=== PATIENT | male | born 1950 | race African-American/Black ===

== ENCOUNTER 2017-07-19 05:25 | Emergency (ER) | payer OTHER ==
[2017-07-19] MEDS ORDERED: NA CHLORIDE 0.9% 1,000 ML ONE (06:03)
[2017-07-19 06:25] LABS: Absolute Lymphocytes (CBC) 1.1 K/uL (0.7-4.9); Absolute Monocytes 0.7 K/uL (0.1-1.3); Absolute Neutrophil 2.6 K/uL (1.8-8.0); Basophils % 1.2 % (0-1.3); Eosinophils % 1.6 % (0-4.4); Hematocrit 28.7 % (39.6-49.0); MCH 31.8 pg (27.0-35.0); MCV 98.7 fL (80-100); Monocytes % 15.7 % (3.3-12.3); RBC Red Blood Cell Count 2.91 M/uL (4.33-5.43)
[2017-07-19 06:39] LABS: Potassium 4.7 mEq/L (3.6-5.0)
[2017-07-19 06:44] LABS: Albumin 3.5 g/dL (3.2-5.5); Bilirubin Total 0.7 mg/dL (0.3-1.2); Protein, Total 7.5 g/dL (6.0-8.3)
[2017-07-19 07:14] LABS: Blood Morphology Comment NOT SEEN (NOT SEEN); Platelet Estimate ADEQ; Urine White Blood Cell Casts OK
[2017-07-19] MEDS ORDERED: MORPHINE 4 MG/ML SYR ONE (07:33)
[2017-07-19] MEDS ORDERED: ONDANSETRON 4 MG/2 ML VIAL ONE (07:33)
--- NOTE | 2017-07-19 08:42 | RAD REPORT ---
EXAM DESCRIPTION: RAD - Chest Single View - 07/19/2017 5:56 am CLINICAL HISTORY: Chest pain. COMPARISON: 07/04/2017 FINDINGS: Portable technique limits examination quality. The lungs are grossly clear. The heart is normal in size. Changes of a prior CABG noted. Right-sided venous catheter tip in SVC. Cardiac monitoring device noted. IMPRESSION: No acute intrathoracic process suspected.
--- NOTE | 2017-07-19 10:03 | ER ---
Nurse's Notes [facility] Name: Julien Parikh Age: 66 yrs Sex: Male : 1950 Arrival Date: 07/19/2017 Time: 05:28 Bed 6 Private MD: Diagnosis: Chest pain, unspecified Presentation: 07/19 05:22 Presenting complaint: EMS states: Pt complaining of chest discomfort to right side of ea chest that started about forty minutes ago, patient complaining of nausea, vomiting and diarrhea. Pt reported being admitted on 06/30/2017. Transition of care: patient was not received from another setting of care. Onset of symptoms was July 19, 2017. Care prior to arrival: None. 05:22 Method Of Arrival: EMS: [facility] ea 05: Acuity: PERRI 3 ea Triage Assessment: :22 General: Appears in no apparent distress. Behavior is calm, cooperative, Pt reports ea every time he eats he has vomiting and diarrhea, states "that's why I came I haven't been able to keep anything down since three PM yesterday evening. . General: Patient denies SOB . Pain: Complains of pain in mid-sternal area Pain radiates to left arm Pain currently is 9 out of 10 on a pain scale. Quality of pain is described as pressure, Pain began 1 hour ago. Is continuous. Historical: - Allergies: 05:39 PENICILLINS; ea - Home Meds: 05:39 Advair Diskus 250-50 mcg/dose Inhl dsdv 1 puff 2 times per day [Active]; aspirin 81 mg ea Oral chew 1 tab once daily [Active]; atorvastatin 80 mg Oral tab 1 tab once daily [Active]; BRILINTA 90 mg Oral tab 1 tab 2 times per day [Active]; carvedilol 25 mg Oral tab 1 tab 2 times per day [Active]; hydralazine 50 mg Oral tab 1 tab Q8hrs [Active]; isosorbide mononitrate 60 mg Oral Tb24 1 tab once daily [Active]; Renagel 800 mg Oral tab 2 tabs 3 times per day [Active]; - PMHx: 05:39 Asthma; CHF; chronic kidney disease; COPD; CVA; Dialysis T-Th-Sat; Hepatitis; L arm ea paralysis; Myocardial infarction; triple bypass; - Immunization history:: Adult Immunizations up to date. - Social history:: Smoking status: Patient/guardian denies using tobacco. Screenin:36 Abuse screen: Denies threats or abuse. Nutritional screening: No deficits noted. ea Tuberculosis screening: No symptoms or risk factors identified. Fall Risk None identified. Assessment: 05:35 General: Appears in no apparent distress. uncomfortable, Behavior is calm, cooperative. ar4 Pain: Complains of pain in anterior chest mid-sternal area, and epigastric region Pain radiates to left arm and abdomen x4 quads Pain currently is 9 out of 10 on a pain scale. at worst was 10 out of 10 on a pain scale. Quality of pain is described as crushing, pressure, radiating, Pain began 1 day ago. Is continuous, Alleviated by nothing. Aggravated by repositioning, inhalation and exhalation breathing Noted to be grimacing, resistant to movement, Also complains of decreased appetite, nausea, shortness of breath, vomiting and diarrhea. Neuro: Level of Consciousness is awake, alert, obeys commands, Oriented to person, place, time, situation, Photography Intern are weak on left Paralysis in left hand(s) arm(s) left, LE weakness. Gait is shuffling, Speech is normal, Facial symmetry appears normal, Pupils are PERRLA, Reports weakness since Pt. reports, "Stroke occurred last year." Denies difficulty swallowing. Cardiovascular: Heart tones S1 S2 present Capillary refill < 3 seconds is brisk in right fingers Patient's skin is warm and dry. Pulses are all present. Chest pain is described as Pt. reports, "Moderate chest pain with shortness of breath.". quality is crushing, pressure, is located in anterior chest wall epigastric area radiates to left arm(s) epigastric region and abdomen x4 quads began 1 day ago episodes are continuous is aggravated by activity, breathing, eating. GI: Abdomen is round non-distended, Stools are reported to be diarrhea. Bowel sounds present X 4 quads. hypoactive in right upper quadrant, left upper quadrant, right lower quadrant and left lower quadrant Abd is soft X 4 quads Abdomen is tender to palpation X 4 quads. Guarding noted X 4 quads. Reports lower abdominal pain, upper abdominal pain, diarrhea, epigastric pain, intolerance of fluids, intolerance of food, nausea, vomiting, since yesterday. : No signs and/or symptoms were reported regarding the genitourinary system. EENT: No signs and/or symptoms were reported regarding the EENT system. Derm: Skin is intact, Skin is dry, Skin is normal, Skin temperature is warm. Musculoskeletal: Range of motion: limited in left shoulder, left elbow, DIP of left little finger, PIP of left little finger, MCP of left little finger, DIP of left ring finger, PIP of left ring finger, MCP of left ring finger, DIP of left middle finger, PIP of left middle finger, MCP of left middle finger, DIP of left index finger, PIP of left index finger, MCP of left index finger, IP of left thumb, MCP of left thumb and CMC of left thumb Tenderness present in abdomen Reports weakness in left leg. 05:35 Respiratory: Airway is patent Trachea midline Respiratory effort is even, mildly ar4 labored Respiratory pattern is regular, Breath sounds with wheezes bilaterally. Onset: The symptoms/episode began/occurred yesterday, the patient has moderate shortness of breath. 07:18 Reassessment: Patient c/o med-sternal chest and epigastric pain, provider notified, new ae1 orders received. 09:21 Reassessment: Patient appears in no apparent distress at this time. Patient and/or ae1 family updated on plan of care and expected duration. Pain level reassessed. Patient states feeling better. 10:22 Reassessment: Provider at bedside discussing care. ae1 Vital Signs: 05:22 BP 164 / 78; Pulse 77; Resp 17 S; Temp 98.4; Pulse Ox 100% on R/A; Weight 72.12 kg; ea Height 5 ft. 8 in. (172.72 cm) (R); Pain 9/10; 05:51 BP 163 / 81; Pulse 80; Resp 20; Pulse Ox 100% on R/A; Pain 9/10; ar4 07:18 BP 172 / 82; Pulse 76; Resp 18; Pulse Ox 100% on R/A; ae1 08:19 BP 160 / 87; Pulse 82; Resp 18; Pulse Ox 100% on R/A; ae1 09:20 BP 152 / 77; Pulse 73; Resp 15; Pulse Ox 98% on R/A; ae1 10:23 BP 158 / 71; Pulse 80; Resp 15; Pulse Ox 99% on R/A; ae1 05:22 Body Mass Index 24.18 (72.12 kg, 172.72 cm) ea ED Course: 05:22 Arm band placed on right wrist. ea 05:22 Patient has correct armband on for positive identification. Bed in low position. Call ea light in reach. Side rails up X2. 05:28 Patient arrived in ED. rg2 05:30 Fiona Bo, [facility] is Primary Nurse. ea 05:34 Triage completed. ea 05:38 Trent Valentine MD is Attending Physician. ps1 05:40 Missed attempt(s): 20 gauge in right wrist. ar4 05:49 X-ray completed. Portable x-ray completed in exam room. Patient tolerated procedure kw well. 05:50 CXR XRAY In Process Unspecified. EDMS 06:05 Initial lab(s) drawn, by me, sent to lab. Inserted saline lock: 18 gauge in right bb antecubital area, using aseptic technique. Blood collected. 06:18 Missed attempt(s): 22 gauge in right forearm. Bleeding controlled, band aid applied, bb catheter tip intact. 06:49 Notified ED physician of a critical lab result(s). creatinine of 10.47 Dr Singer claudio notified. 08:40 Attending Physician role handed off by Trent Valentine MD kdr 08:40 Efren Chicas MD is Attending Physician. kdr 08:42 IV discontinued, intact, bleeding controlled, Pressure dressing applied, IV ae1 infiltrated, mild swelling above insertion site. 10:21 No provider procedures requiring assistance completed. ae1 Administered Medications: 06:41 Drug: NS 0.9% 1000 ml Route: IV; Rate: 1 bolus; Site: right antecubital; bb 10:24 Follow up: IV Status: Completed infusion ae1 07:20 Drug: Zofran 4 mg Route: IVP; Site: right antecubital; ae1 08:20 Follow up: Response: No adverse reaction ae1 07:22 Drug: morphine 4 mg Route: IVP; Site: right antecubital; ae1 08:20 Follow up: Response: Pain is decreased ae1 Outcome: 10:02 Discharge ordered by . kdr 10:21 Attestation : I agree with the charting done by Radha Fields, nursing care attendant. . ae1 10:21 Discharged to home ambulatory. 10:21 Condition: stable 10:21 Discharge instructions given to patient, Instructed on discharge instructions, follow up and referral plans. Demonstrated understanding of instructions. 10:26 Patient left the ED. ae1 Signatures: Dispatcher [employer] EDMS Shaffer Cheri rg2 Efren Chicas MD MD kdr Feli Abdullahi RN RN Jazmin Archer Andrea, RN RN ae1 Fiona Bo RN RN ea Singer, Phillip, MD MD ps1 Stephanie Loza ar4 Corrections: (The following items were deleted from the chart) 06:05 05:35 Respiratory: Airway is patent Trachea midline Respiratory effort is even, mildly ar4 labored Respiratory pattern is regular, Onset: The symptoms/episode began/occurred yesterday, the patient has moderate shortness of breath ar4
--- NOTE | 2017-07-19 10:03 | EDPHYS ---
Physician Documentation [facility] Name: Julien Parikh Age: 66 yrs Sex: Male : 1950 Arrival Date: 07/19/2017 Time: 05:28 Bed 6 Private MD: ED Physician Efren Chicas HPI: 07/19 05:43 This 66 yrs old Black Male presents to ER via EMS with complaints of chest pain. ps1 05:43 The patient or guardian reports chest pain that is located primarily in the substernal ps1 area, epigastric area. Onset: yesterday, at 15:00. The pain radiates to the left arm, the left shoulder. Associated signs and symptoms: The patient has no apparent associated signs or symptoms. The chest pain is described as squeezing. Duration: The patient or guardian reports a single episode, that is still ongoing. Modifying factors: the symptoms are aggravated by nothing. Severity of pain: At its worst the pain was moderate. The patient has experienced similar episodes in the past, today's symptoms are similar, to previous not as bad as previous CA.. Took 180 ASA at 0500. Hx of CA in past, 2 stents done in [place] a year ago. Patient of Dr. Dela Cruz in [place]. . 06:55 ESRD on dialysis TTS. Missed dialysis Tuesday. Dialysis scheduled today. . ps1 Historical: - Allergies: 05:39 PENICILLINS; ea - Home Meds: 05:39 Advair Diskus 250-50 mcg/dose Inhl dsdv 1 puff 2 times per day [Active]; aspirin 81 mg ea Oral chew 1 tab once daily [Active]; atorvastatin 80 mg Oral tab 1 tab once daily [Active]; BRILINTA 90 mg Oral tab 1 tab 2 times per day [Active]; carvedilol 25 mg Oral tab 1 tab 2 times per day [Active]; hydralazine 50 mg Oral tab 1 tab Q8hrs [Active]; isosorbide mononitrate 60 mg Oral Tb24 1 tab once daily [Active]; Renagel 800 mg Oral tab 2 tabs 3 times per day [Active]; - PMHx: 05:39 Asthma; CHF; chronic kidney disease; COPD; CVA; Dialysis T-Th-Sat; Hepatitis; L arm ea paralysis; Myocardial infarction; triple bypass; - Immunization history:: Adult Immunizations up to date. - Social history:: Smoking status: Patient/guardian denies using tobacco. ROS: 05:43 Constitutional: Negative for fever, chills, and weight loss, Eyes: Negative for injury, ps1 pain, redness, and discharge, Neck: Negative for injury, pain, and swelling. 05:43 Respiratory: Negative for shortness of breath, cough, wheezing, and pleuritic chest pain, Abdomen/GI: Negative for abdominal pain, nausea, vomiting, diarrhea, and constipation, MS/Extremity: Negative for injury and deformity, Skin: Negative for injury, rash, and discoloration, Neuro: Negative for headache, weakness, numbness, tingling, and seizure, Psych: Negative for depression, anxiety, suicide ideation, homicidal ideation, and hallucinations. 05:43 Cardiovascular: Positive for chest pain. Exam: 05:43 Constitutional: This is a well developed, well nourished patient who is awake, alert, ps1 and in no acute distress. Head/Face: Normocephalic, atraumatic. Eyes: Pupils equal round and reactive to light, extra-ocular motions intact. Lids and lashes normal. Conjunctiva and sclera are non-icteric and not injected. Neck: Trachea midline, no thyromegaly or masses palpated, and no cervical lymphadenopathy. Supple, full range of motion without nuchal rigidity, or vertebral point tenderness. No Meningismus. Chest/axilla: Normal chest wall appearance and motion. Nontender with no deformity. No lesions are appreciated. Cardiovascular: Regular rate and rhythm. No gallops, murmurs, or rubs. Normal PMI, no JVD. No pulse deficits. Vital Signs: 05:22 BP 164 / 78; Pulse 77; Resp 17 S; Temp 98.4; Pulse Ox 100% on R/A; Weight 72.12 kg; ea Height 5 ft. 8 in. (172.72 cm) (R); Pain 9/10; 05:51 BP 163 / 81; Pulse 80; Resp 20; Pulse Ox 100% on R/A; Pain 9/10; ar4 07:18 BP 172 / 82; Pulse 76; Resp 18; Pulse Ox 100% on R/A; ae1 08:19 BP 160 / 87; Pulse 82; Resp 18; Pulse Ox 100% on R/A; ae1 09:20 BP 152 / 77; Pulse 73; Resp 15; Pulse Ox 98% on R/A; ae1 10:23 BP 158 / 71; Pulse 80; Resp 15; Pulse Ox 99% on R/A; ae1 05:22 Body Mass Index 24.18 (72.12 kg, 172.72 cm) ea MDM: 05:29 Data reviewed: vital signs, nurses notes. ps1 05:49 Patient medically screened. ps1 07/19 05:39 Order name: CBC with Diff; Complete Time: 09:40 ps1 07/19 05:39 Order name: CMP; Complete Time: 06:55 ps1 07/19 05:39 Order name: Troponin (emerg Dept Use Only); Complete Time: 06:48 ps1 07/19 05:39 Order name: BNP; Complete Time: 06:55 ps1 07/19 05:39 Order name: Lipase; Complete Time: 06:55 ps1 07/19 06:28 Order name: CBC Smear Scan; Complete Time: 09:40 EDMS 07/19 05:39 Order name: CXR XRAY; Complete Time: 09:40 ps1 07/19 06:58 Order name: EKG Electrocardiogram EDMS 07/19 08:41 Order name: Troponin (emerg Dept Use Only); Complete Time: 10:01 kdr EC:29 Rate is 74 beats/min. Rhythm is regular. QRS [place] is Normal. PA interval is normal. QRS ps1 interval is normal. QT interval is normal. No Q waves. T waves are Normal. ST Segment is depressed in leads II, III, aVF, <1mm. Clinical impression: NSR w/ Non-specific ST/T Changes. No change from previous ECG on June 30, 2017. Interpreted by me. Administered Medications: 06:41 Drug: NS 0.9% 1000 ml Route: IV; Rate: 1 bolus; Site: right antecubital; bb 10:24 Follow up: IV Status: Completed infusion ae1 07:20 Drug: Zofran 4 mg Route: IVP; Site: right antecubital; ae1 08:20 Follow up: Response: No adverse reaction ae1 07:22 Drug: morphine 4 mg Route: IVP; Site: right antecubital; ae1 08:20 Follow up: Response: Pain is decreased ae1 Disposition: 07/19/17 10:02 Discharged to Home. Impression: Chest pain, unspecified. - Condition is Stable. - Discharge Instructions: Nonspecific Chest Pain, [id number]. - Medication Reconciliation Form, Thank You Letter form. - Follow up: Private Physician; When: 2 - 3 days; Reason: If symptoms return, Further diagnostic work-up, Recheck today's complaints, Continuance of care, Re-evaluation by your physician. - Problem is new. - Symptoms have improved. Signatures: Dispatcher [employer] EDEfren Zelaya MD MD kdr Feli Abdullahi RN RN bb Chacho Arnett RN RN ae1 Fiona Bo RN RN ea Trent Valentine MD MD ps1
[2017-07-19 10:57] VITALS: BP 158/71; O2SAT 99
--- NOTE | 2017-07-19 11:59 | EKG ---
Test Date: 2017-07-19 Test Time: 05:29:51 [employer]: ANNI MEASUREMENT RESULTS: Intervals: Rate: 74 NC: 144 QRSD: 84 QT: 408 QTc: 452 Hardy: P: 77 NC: 144 QRS: -2 T: 258 INTERPRETIVE STATEMENTS: Normal sinus rhythm ST & T wave abnormality, consider inferior ischemia Abnormal ECG Compared to ECG 06/30/2017 20:45:51 Possible ischemia now present Sinus arrhythmia no longer present Prolonged QT interval no longer present ST (T wave) deviation still present Electronically Signed On 07-19-17 11:57:15 CDT by Jono Hauser
== END 2017-07-19 10:26 | disposition home or self-care (01) ==
LOC: ER 05:25
DX: R07.9 Chest pain, unspecified (principal); Z88.0 Allergy status to penicillin; J44.9 Chronic obstructive pulmonary disease, unspecified
CPT/HCPCS: 36415; 71045; 80053; 83690; 83880; 84484 ×2; 85025; 93005; 96361; 96374; 96375; 99284; J2405; J7030

== ENCOUNTER 2017-08-05 08:30 | Emergency (ER) | payer OTHER ==
[2017-08-05 09:44] LABS: Absolute Lymphocytes (CBC) 1.7 K/uL (0.7-4.9); Absolute Monocytes 0.5 K/uL (0.1-1.3); Basophils % 0.7 % (0-1.3); Eosinophils % 1.7 % (0-4.4); Hematocrit 31.5 % (39.6-49.0); Lymphocytes % 32.3 % (15.3-44.8); MCH 31.3 pg (27.0-35.0); MCV 98.5 fL (80-100); MPV 9.9 fL (7.6-11.3); Monocytes % 9.7 % (3.3-12.3); RBC Red Blood Cell Count 3.19 M/uL (4.33-5.43)
[2017-08-05 09:59] LABS: Potassium 4.5 mEq/L (3.6-5.0)
--- NOTE | 2017-08-05 11:03 | EDPHYS ---
Physician Documentation [facility] Name: Julien Parikh Age: 67 yrs Sex: Male : 1950 Arrival Date: 08/05/2017 Time: 08:35 Bed 13 Private MD: ED Physician Efren Chicas HPI: 08/05 15:34 This 67 yrs old Black Male presents to ER via Ambulatory with complaints of DIALYSIS kdr PROBLEM. 15:34 Dialysis sent the patient to the ED for eval since he has not made the last few kdr dialysis sessions. He has no generalized or focal c/o. Onset: The symptoms/episode began/occurred at an unknown time. Severity of symptoms: At their worst the symptoms were very mild in the emergency department the symptoms are unchanged. The patient has not experienced similar symptoms in the past. The patient has not recently seen a physician. Historical: - Allergies: 09:02 PENICILLINS; ss - PMHx: 09:02 Asthma; CHF; chronic kidney disease; COPD; CVA; Dialysis T-Th-Sat; Hepatitis; L arm ss paralysis; Myocardial infarction; triple bypass; - Immunization history:: Adult Immunizations up to date. - Social history:: Smoking status: Patient uses tobacco products, smokes one pack cigarettes per day. ROS: 15:34 Constitutional: Negative for fever, chills, and weight loss, Eyes: Negative for injury, kdr pain, redness, and discharge, ENT: Negative for injury, pain, and discharge, Neck: Negative for injury, pain, and swelling, Cardiovascular: Negative for chest pain, palpitations, and edema, Respiratory: Negative for shortness of breath, cough, wheezing, and pleuritic chest pain, Abdomen/GI: Negative for abdominal pain, nausea, vomiting, diarrhea, and constipation, Back: Negative for injury and pain, : Negative for injury, bleeding, discharge, and swelling, MS/Extremity: Negative for injury and deformity, Skin: Negative for injury, rash, and discoloration, Neuro: Negative for headache, weakness, numbness, tingling, and seizure activity. Psych: Negative for depression, anxiety, suicide ideation, homicidal ideation, and hallucinations, Allergy/Immunology: Negative for hives, rash, and allergies, Endocrine: Negative for neck swelling, polydipsia, polyuria, polyphagia, and marked weight changes, Hematologic/Lymphatic: Negative for swollen nodes, abnormal bleeding, and unusual bruising. Exam: 15:34 Constitutional: This is a well developed, well nourished patient who is awake, alert, kdr and in no acute distress. Head/Face: Normocephalic, atraumatic. Eyes: Pupils equal round and reactive to light, extra-ocular motions intact. Lids and lashes normal. Conjunctiva and sclera are non-icteric and not injected. Cornea within normal limits. Periorbital areas with no swelling, redness, or edema. ENT: Nares patent. No nasal discharge, no septal abnormalities noted. Tympanic membranes are normal and external auditory canals are clear. Oropharynx with no redness, swelling, or masses, exudates, or evidence of obstruction, uvula midline. Mucous membranes moist. Neck: Trachea midline, no thyromegaly or masses palpated, and no cervical lymphadenopathy. Supple, full range of motion without nuchal rigidity, or vertebral point tenderness. No Meningismus. Chest/axilla: Normal chest wall appearance and motion. Nontender with no deformity. No lesions are appreciated. There is a dialysis cath in the right anterior chest wall Cardiovascular: Regular rate and rhythm with a normal S1 and S2. No gallops, murmurs, or rubs. Normal PMI, no JVD. No pulse deficits. Respiratory: Lungs have equal breath sounds bilaterally, clear to auscultation and percussion. No rales, rhonchi or wheezes noted. No increased work of breathing, no retractions or nasal flaring. Abdomen/GI: Soft, non-tender, with normal bowel sounds. No distension or tympany. No guarding or rebound. No evidence of tenderness throughout. Back: No spinal tenderness. No costovertebral tenderness. Full range of motion. Male : Normal genitalia with no discharge or lesions. Skin: Warm, dry with normal turgor. Normal color with no rashes, no lesions, and no evidence of cellulitis. Vital Signs: 09:02 BP 139 / 76; Pulse 74; Resp 19; Temp 97.9(TE); Pulse Ox 99% on R/A; Weight 67.59 kg; ss Height 5 ft. 8 in. (172.72 cm); Pain 0/10; 10:22 BP 165 / 78; Pulse 76; Pulse Ox 100% on R/A; ap3 11:08 BP 164 / 84; Pulse 75; Pulse Ox 100% on R/A; ap3 09:02 Body Mass Index 22.66 (67.59 kg, 172.72 cm) MDM: 11:03 Patient medically screened. kdr 15:34 Data reviewed: vital signs, lab test result(s). Counseling: I had a detailed discussion kdr with the patient and/or guardian regarding: the historical points, exam findings, and any diagnostic results supporting the discharge/admit diagnosis, lab results, the need for outpatient follow up. 08/05 09:03 Order name: CBC with Diff; Complete Time: 11: kdr 08/05 09:03 Order name: Chem 7; Complete Time: : kdr Administered Medications: No medications were administered Disposition: 08/05/17 11:03 Discharged to Home. Impression: Dialysis non-compliance, Renal failure - chronic. - Condition is Stable. - Discharge Instructions: Dialysis Diet, [id number]. - Medication Reconciliation Form, Thank You Letter form. - Follow up: Private Physician; When: 2 - 3 days; Reason: If symptoms return, Further diagnostic work-up, Recheck today's complaints, Continuance of care, Re-evaluation by your physician. - Problem is new. - Symptoms are unchanged. Signatures: Dispatcher [employer] Efren Oro MD MD kdr Janene Alonso RN RN Chacho Arnett RN RN ae1
--- NOTE | 2017-08-05 11:03 | ER ---
Nurse's Notes [facility] Name: Julien Parikh Age: 67 yrs Sex: Male : 1950 Arrival Date: 08/05/2017 Time: 08:35 Bed 13 Private MD: Diagnosis: Dialysis non-compliance;Renal failure - chronic Presentation: 08/05 08:58 Presenting complaint: Patient states: "I've missed dialysis for like five days because ss I haven't been feeling well and I have to get cleared before I can go back." After speaking with patient, he states that he called the dialysis center and he was last dialyzed on 06/30/17. Transition of care: patient was not received from another setting of care. Onset of symptoms is unknown. Care prior to arrival: None. 08:58 Method Of Arrival: Ambulatory ss 08:58 Acuity: PERRI 3 ss Historical: - Allergies: 09:02 PENICILLINS; ss - PMHx: 09:02 Asthma; CHF; chronic kidney disease; COPD; CVA; Dialysis T-Th-Sat; Hepatitis; L arm ss paralysis; Myocardial infarction; triple bypass; - Immunization history:: Adult Immunizations up to date. - Social history:: Smoking status: Patient uses tobacco products, smokes one pack cigarettes per day. Screenin:20 Abuse screen: Denies threats or abuse. Nutritional screening: No deficits noted. ae1 Tuberculosis screening: No symptoms or risk factors identified. Fall Risk None identified. Assessment: 09:20 General: Appears in no apparent distress. comfortable, Behavior is calm, cooperative. ae1 Pain: Denies pain. Neuro: Level of Consciousness is awake, alert, obeys commands, Oriented to person, place, time, situation. Cardiovascular: Heart tones S1 S2 present Patient's skin is warm and dry. Respiratory: Airway is patent Respiratory effort is even, unlabored, Respiratory pattern is regular, Breath sounds are clear bilaterally. GI: No signs and/or symptoms were reported involving the gastrointestinal system. : No signs and/or symptoms were reported regarding the genitourinary system. EENT: wears glasses. . Derm: Skin is normal, Skin temperature is warm. Musculoskeletal: No signs and/or symptoms reported regarding the musculoskeletal system. 10:00 Reassessment: No changes from previously documented assessment. Patient and/or family ae1 updated on plan of care and expected duration. Pain level reassessed. 11:00 Reassessment: No changes from previously documented assessment. Patient and/or family ae1 updated on plan of care and expected duration. Pain level reassessed. patient awaiting provider to discuss care and lab results. Vital Signs: 09:02 BP 139 / 76; Pulse 74; Resp 19; Temp 97.9(TE); Pulse Ox 99% on R/A; Weight 67.59 kg; Height 5 ft. 8 in. (172.72 cm); Pain 0/10; 10:22 BP 165 / 78; Pulse 76; Pulse Ox 100% on R/A; ap3 11:08 BP 164 / 84; Pulse 75; Pulse Ox 100% on R/A; ap3 09:02 Body Mass Index 22.66 (67.59 kg, 172.72 cm) ED Course: 08:35 Patient arrived in ED. rg4 08:48 Efren Chicas MD is Attending Physician. kdr 09:02 Triage completed. ss 09:02 Arm band placed on right wrist. ss 09:20 Placed in gown. Bed in low position. Call light in reach. Side rails up X 1. Pulse ox ae1 on. NIBP on. Warm blanket given. 09:49 Chacho Arnett, RN is Primary Nurse. ae1 11:11 No provider procedures requiring assistance completed. Patient did not have IV access ap3 during this emergency room visit. Administered Medications: No medications were administered Outcome: 11:03 Discharge ordered by . kdr 11:10 Discharged to home ambulatory. ap3 11:10 Condition: stable 11:10 Discharge instructions given to patient, Instructed on discharge instructions, follow up and referral plans. Demonstrated understanding of instructions. 11:15 Attestation : I agree with the charting done by Radha Fields, nursing care attendant. . ae1 11:17 Patient left the ED. ae1 Signatures: Efren Chicas MD MD [facility] Janene Alonso RN RN Chacho Arnett, SUMI RN ae1 Evelyn Lberon rg4 Radha Fields
[2017-08-05 11:29] VITALS: TEMP 97.9
[2017-08-05 11:30] VITALS: O2SAT 100
[2017-08-05 11:31] VITALS: BP 164/84
== END 2017-08-05 11:17 | disposition home or self-care (01) ==
LOC: ER 08:30
DX: N18.6 End stage renal disease (principal); Z91.15 Patient's noncompliance with renal dialysis; I25.2 Old myocardial infarction; F17.210 Nicotine dependence, cigarettes, uncomplicated; I50.9 Heart failure, unspecified; Z88.0 Allergy status to penicillin; Z99.2 Dependence on renal dialysis
CPT/HCPCS: 36415; 80048; 85025; 99283

== ENCOUNTER 2017-08-18 10:01 | Emergency (ER) | payer OTHER ==
[2017-08-18] MEDS ORDERED: TRAMADOL HCL 50 MG TAB ONE (11:00)
--- NOTE | 2017-08-18 11:36 | RAD REPORT ---
EXAM DESCRIPTION: RAD - Hip Left 2 View - 08/18/2017 11:12 am CLINICAL HISTORY: Hip pain COMPARISON: None. FINDINGS: AP and frogleg views of the left hip were obtained. There is no fracture or dislocation. N o acute or destructive process in the left femoral head. Femoral head maintains smooth rounded contou r with no AVN. Degenerative change at the left hip joint is minimal along the superior acetabular rim . No periarticular mass or hematoma. No foreign body. Arterial calcifications are present. IMPRESSION: Minimal degenerative change with no fracture or acute finding identifiable. Continued, unexplained symptoms can be further addressed with MR imaging or thin section CT imaging.
[2017-08-18 12:12] LABS: Absolute Lymphocytes (CBC) 1.3 K/uL (0.7-4.9); Absolute Monocytes 0.5 K/uL (0.1-1.3); Absolute Neutrophil 2.7 K/uL (1.8-8.0); Basophils % 0.7 % (0-1.3); Eosinophils % 2.4 % (0-4.4); Hematocrit 31.1 % (39.6-49.0); Lymphocytes % 27.9 % (15.3-44.8); MCH 31.7 pg (27.0-35.0); MCV 97.2 fL (80-100); MPV 9.5 fL (7.6-11.3); Monocytes % 10.5 % (3.3-12.3)
[2017-08-18 12:16] LABS: Potassium 4.8 mEq/L (3.6-5.0)
--- NOTE | 2017-08-18 13:11 | ER ---
Nurse's Notes [facility] Name: Julien Parikh Age: 67 yrs Sex: Male : 1950 Arrival Date: 08/18/2017 Time: 10:04 Bed 6 Private MD: Diagnosis: Pain in left hip;Patient's noncompliance with renal dialysis;Chronic kidney disease, unspecified Presentation: 08/18 10:27 Presenting complaint: Patient states: Missed dialysis Tuesday, was instructed to come aj to ER to be cleared for dialysis tomorrow. Patient reports body aches, denies fever. Transition of care: patient was not received from another setting of care. Onset of symptoms was August 18, 2017. Care prior to arrival: None. 10:27 Method Of Arrival: Ambulatory aj 10: Acuity: PERRI 3 aj Triage Assessment: : General: Appears in no apparent distress. comfortable, Behavior is calm, cooperative, aj appropriate for age. Pain: Complains of pain in Body aches. Neuro: Level of Consciousness is awake, alert, obeys commands, Oriented to person, place, time, situation. Respiratory: Airway is patent Respiratory effort is even, unlabored, Respiratory pattern is regular, symmetrical. Derm: Skin is intact, is healthy with good turgor, Skin is pink, warm \\T\\ dry. normal. Historical: - Allergies: 10: PENICILLINS; aj - Home Meds: : Advair Diskus 250-50 mcg/dose Inhl dsdv 1 puff 2 times per day [Active]; aspirin 81 mg aj Oral chew 1 tab once daily [Active]; atorvastatin 80 mg Oral tab 1 tab once daily [Active]; BRILINTA 90 mg Oral tab 1 tab 2 times per day [Active]; carvedilol 25 mg Oral tab 1 tab 2 times per day [Active]; hydralazine 50 mg Oral tab 1 tab Q8hrs [Active]; isosorbide mononitrate 60 mg Oral Tb24 1 tab once daily [Active]; Renagel 800 mg Oral tab 2 tabs 3 times per day [Active]; - PMHx: 10: Asthma; CHF; chronic kidney disease; COPD; CVA; Dialysis T-Th-Sat; Hepatitis; L arm aj paralysis; Myocardial infarction; triple bypass; - PSHx: 10:29 CABG; aj - Immunization history:: Adult Immunizations up to date. - Social history:: Smoking status: Patient uses tobacco products, smokes one-half pack cigarettes per day. Screenin:20 Abuse screen: Denies threats or abuse. Denies injuries from another. Nutritional sg screening: No deficits noted. Tuberculosis screening: No symptoms or risk factors identified. Never had TB. Fall Risk None identified. Assessment: 11:12 General: Appears in no apparent distress. comfortable, well groomed, well developed, iw well nourished, Behavior is calm, cooperative, appropriate for age. Pain: Complains of pain in left hip Pain does not radiate. Quality of pain is described as aching, tender, "age pain". Neuro: No deficits noted. Cardiovascular: Capillary refill is brisk in bilateral fingers Patient's skin is warm and dry. Chest pain is denied. Respiratory: Airway is patent Respiratory effort is even, unlabored, Respiratory pattern is regular, symmetrical. GI: No signs and/or symptoms were reported involving the gastrointestinal system. : No signs and/or symptoms were reported regarding the genitourinary system. EENT: No signs and/or symptoms were reported regarding the EENT system. Derm: No signs and/or symptoms reported regarding the dermatologic system. Skin is intact, is healthy with good turgor, Skin is dry, Skin is normal, Skin temperature is warm. Musculoskeletal: Circulation, motion, and sensation intact. Range of motion: intact in all extremities, Swelling absent Reports pain in left hip ambulatory, steady gait. 11:50 Reassessment: Patient appears in no apparent distress at this time. Patient and/or sg family updated on plan of care and expected duration. Pain level reassessed. Patient is alert, oriented x 3, equal unlabored respirations, skin warm/dry/pink. Lab at bedside after PIV attemptsx3, awaiting blood draw, Gabriella MOCTEZUMA notified. Vital Signs: 10:29 BP 167 / 88; Pulse 75; Resp 18; Temp 98.0; Pulse Ox 99% on R/A; Weight 67.59 kg; Height aj 5 ft. 8 in. (172.72 cm); 11:53 BP 162 / 80; Pulse 77; Resp 18; Pulse Ox 100% on R/A; sg 10:29 Body Mass Index 22.66 (67.59 kg, 172.72 cm) ED Course: 10:04 Patient arrived in ED. as 10:28 Triage completed. aj 10:29 Arm band placed on right wrist. Patient placed in waiting room, Patient notified of wait time. 10:46 Rigo Gupta PA is PHCP. cp 10:46 Henrry Foley MD is Attending Physician. cp 10:47 Wood Brock, RN is Primary Nurse. sg 11:11 X-ray completed. Patient tolerated procedure well. kw1 11:12 XRAY Hip LEFT 2 view In Process Unspecified. EDMS 11:20 Patient has correct armband on for positive identification. Bed in low position. Call sg light in reach. Side rails up X2. Pulse ox on. NIBP on. 11:20 No provider procedures requiring assistance completed. sg 11:30 Missed attempt(s): 20 gauge in right antecubital area. Bleeding controlled, band aid hb applied, catheter tip intact. 13:10 Patient did not have IV access during this emergency room visit. sg Administered Medications: 11:12 Drug: UltRAM 50 mg Route: PO; sg Outcome: 13:10 Discharge ordered by MD. cp 13:10 Discharged to home ambulatory, with friend. sg 13:10 Condition: good 13:10 Discharge instructions given to patient, Instructed on discharge instructions, follow up and referral plans. no drinking with medication, medication usage, safety practices, Demonstrated understanding of instructions, follow-up care, medications, Prescriptions given X 1. 13:19 Patient left the ED. sg Signatures: Dispatcher [employer] EDCT Wood Brock, Radha Wiggnis RN, RN RN aj Martinez, Amelia as Williams, Irene, RN RN Rigo Gupta PA PA cp Baxter, Heather, RN RN Edilia Bettencourt kw1
--- NOTE | 2017-08-18 13:11 | EDPHYS ---
Physician Documentation [facility] Name: Julien Parikh Age: 67 yrs Sex: Male : 1950 Arrival Date: 08/18/2017 Time: 10:04 Bed 6 Private MD: ED Physician Henrry Foley HPI: 08/18 10:56 This 67 yrs old Black Male presents to ER via Ambulatory with complaints of left hip cp pain. 10:56 The patient presents with pain, that is acute. The complaints affect the left hip. cp Associated signs and symptoms: Pertinent positives: radiating pain down back left leg, Pertinent negatives calf tenderness, fever, numbness, swelling, weakness. 10:56 Onset: The symptoms/episode began/occurred today. Patient also reports needing cp clearance for dialysis. Reports last completed dialysis was 07-28-2017. Historical: - Allergies: 10: PENICILLINS; aj - Home Meds: 10:29 Advair Diskus 250-50 mcg/dose Inhl dsdv 1 puff 2 times per day [Active]; aspirin 81 mg aj Oral chew 1 tab once daily [Active]; atorvastatin 80 mg Oral tab 1 tab once daily [Active]; BRILINTA 90 mg Oral tab 1 tab 2 times per day [Active]; carvedilol 25 mg Oral tab 1 tab 2 times per day [Active]; hydralazine 50 mg Oral tab 1 tab Q8hrs [Active]; isosorbide mononitrate 60 mg Oral Tb24 1 tab once daily [Active]; Renagel 800 mg Oral tab 2 tabs 3 times per day [Active]; - PMHx: 10:29 Asthma; CHF; chronic kidney disease; COPD; CVA; Dialysis T-Th-Sat; Hepatitis; L arm aj paralysis; Myocardial infarction; triple bypass; - PSHx: 10:29 CABG; aj - Immunization history:: Adult Immunizations up to date. - Social history:: Smoking status: Patient uses tobacco products, smokes one-half pack cigarettes per day. ROS: 11:00 Constitutional: Negative for body aches, chills, fever, poor PO intake. cp 11:00 Eyes: Negative for injury, pain, redness, and discharge. cp 11:00 ENT: Negative for drainage from ear(s), ear pain, sore throat, difficulty swallowing, difficulty handling secretions. 11:00 Cardiovascular: Negative for chest pain, edema, palpitations. 11:00 Respiratory: Negative for cough, shortness of breath, wheezing. 11:00 Abdomen/GI: Negative for abdominal pain, nausea, vomiting, and diarrhea, anorexia, black/tarry stool, rectal bleeding. 11:00 Back: Negative for pain at rest, pain with movement. 11:00 MS/extremity: Positive for pain, of the left hip, Negative for injury or acute deformity, decreased range of motion, paresthesias. 11:00 Skin: Negative for cellulitis, rash. 11:00 Neuro: Negative for altered mental status, headache, weakness. 11:00 All other systems are negative. Exam: 11:05 Constitutional: The patient appears in no acute distress, alert, awake, non-toxic, well cp developed, well nourished. 11:05 Head/Face: Normocephalic, atraumatic. cp 11:05 Eyes: Periorbital structures: appear normal, Pupils: equal, round, and reactive to light and accomodation, Extraocular movements: intact throughout, Conjunctiva: normal, no exudate, no injection, Sclera: no appreciated abnormality, Lids and lashes: appear normal, bilaterally. 11:05 ENT: External ear(s): are unremarkable, Nose: is normal, Mouth: Lips: moist, Oral mucosa: moist, Posterior pharynx: is normal, airway is patent, no erythema, no exudate. 11:05 Chest/axilla: Inspection: normal, Palpation: is normal, no crepitus, no tenderness. 11:05 Cardiovascular: Rate: normal, Rhythm: regular, Edema: is not appreciated, JVD: is not appreciated. 11:05 Respiratory: the patient does not display signs of respiratory distress, Respirations: normal, no use of accessory muscles, no retractions, no splinting, no tachypnea, labored breathing, is not present, Breath sounds: are clear throughout, no decreased breath sounds, no stridor, no wheezing. 11:05 Abdomen/GI: Inspection: abdomen appears normal, Bowel sounds: active, all quadrants, Palpation: abdomen is soft and non-tender, in all quadrants, rebound tenderness, is not appreciated, voluntary guarding, is not appreciated, involuntary guarding, is not appreciated. 11:05 Back: pain, is absent, ROM is normal. 11:05 Musculoskeletal/extremity: Extremities: grossly normal except: noted in the left hip: pain, There is no evidence of decreased ROM, deformity, swelling. 11:05 Skin: cellulitis, is not appreciated, no rash present. 11:05 Neuro: Orientation: to person, place \T\ time. Mentation: is normal. Vital Signs: 10:29 BP 167 / 88; Pulse 75; Resp 18; Temp 98.0; Pulse Ox 99% on R/A; Weight 67.59 kg; Height aj 5 ft. 8 in. (172.72 cm); 11:53 BP 162 / 80; Pulse 77; Resp 18; Pulse Ox 100% on R/A; sg 10:29 Body Mass Index 22.66 (67.59 kg, 172.72 cm) aj MDM: 10:46 Patient medically screened. cp 11:00 Differential diagnosis: dislocation, tendonitis, fracture. cp 13:09 Data reviewed: vital signs, nurses notes, lab test result(s), radiologic studies, plain cp films, and as a result, I will discharge patient. 13:09 Counseling: I had a detailed discussion with the patient and/or guardian regarding: the cp historical points, exam findings, and any diagnostic results supporting the discharge/admit diagnosis, lab results, radiology results, to return to the emergency department if symptoms worsen or persist or if there are any questions or concerns that arise at home. ED course: VSS. Xrays of hip negative for acute findings. Labs reviewed and stable. Will discharge to home and patient instructed to f/u as scheduled at dialysis clinic. 08/18 10:56 Order name: CBC with Diff cp 08/18 10:56 Order name: BMP; Complete Time: 13:08 cp 08/18 13:08 Interpretation: Normal except: CL 112; CA 7.9; BUN 28; CRE 4.63; GFR 15. cp 08/18 10:56 Order name: XRAY Hip LEFT 2 view; Complete Time: 12:15 cp 08/18 12:37 Interpretation: Report reviewed. 08/18 10:56 Order name: CBC with Automated Diff; Complete Time: 12:15 EDMS 08/18 12:16 Interpretation: Normal except: WBC 4.6; RBC 3.20; HGB 10.2; HCT 31.1; PLT 127. cp Administered Medications: 11:12 Drug: UltRAM 50 mg Route: PO; sg Disposition: 08/19 07:59 Co-signature as Attending Physician, Henrry Foley MD I agree with the assessment and wa plan of care. Disposition: 08/18/17 13:10 Discharged to Home. Impression: Pain in left hip, Patient's noncompliance with renal dialysis, Chronic kidney disease, unspecified. - Condition is Stable. - Discharge Instructions: End-Stage Kidney Disease, Hip Pain, Dialysis Diet, [id number]. - Prescriptions for Tramadol 50 mg Oral Tablet - take 1 tablet by ORAL route every 8 hours as needed; 15 tablet. - Medication Reconciliation Form, Thank You Letter, Antibiotic Education, Prescription Opioid Use form. - Follow up: Private Physician; When: Tomorrow; Reason: as scheduled for dialysis. - Problem is chronic. - Symptoms are unchanged. Signatures: Dispatcher [employer] EDWood Davison RN RN sg Myers, Amanda, RN RN aj Page, Corey, PA PA Henrry Houser MD MD ma
[2017-08-18 13:28] VITALS: TEMP 98
[2017-08-18 13:29] VITALS: BP 162/80; O2SAT 100
== END 2017-08-18 13:19 | disposition home or self-care (01) ==
LOC: ER 10:01
DX: M25.552 Pain in left hip (principal); Z91.15 Patient's noncompliance with renal dialysis; N18.9 Chronic kidney disease, unspecified; K75.9 Inflammatory liver disease, unspecified; I50.9 Heart failure, unspecified; J44.9 Chronic obstructive pulmonary disease, unspecified; F17.210 Nicotine dependence, cigarettes, uncomplicated; Z79.82 Long term (current) use of aspirin; Z88.0 Allergy status to penicillin; Z86.73 Personal history of transient ischemic attack (TIA), and cerebral infarction without residual deficits; Z95.1 Presence of aortocoronary bypass graft
CPT/HCPCS: 36415; 80048; 85025; 99284

== ENCOUNTER 2017-08-29 22:13 | Observation (INO) | payer OTHER ==
[2017-08-29] MEDS ORDERED: ONDANSETRON 4 MG/2 ML VIAL ONE (23:21)
[2017-08-29] MEDS ORDERED: MORPHINE 4 MG/ML SYR ONE (23:21)
[2017-08-29 23:44] LABS: Absolute Lymphocytes (CBC) 1.5 K/uL (0.7-4.9); Absolute Monocytes 0.6 K/uL (0.1-1.3); Absolute Neutrophil 2.5 K/uL (1.8-8.0); Basophils % 0.6 % (0-1.3); Eosinophils % 2.1 % (0-4.4); Lymphocytes % 32.1 % (15.3-44.8); MCV 96.8 fL (80-100); MPV 9.3 fL (7.6-11.3); Monocytes % 12.5 % (3.3-12.3)
[2017-08-29 23:45] LABS: Protime INR 0.96
[2017-08-29 23:50] LABS: Potassium 4.4 mEq/L (3.6-5.0)
[2017-08-29 23:56] LABS: Albumin 3.8 g/dL (3.2-5.5); Bilirubin Direct 0.1 mg/dL (0-0.2); Bilirubin Total 0.6 mg/dL (0.3-1.2); Protein, Total 7.7 g/dL (6.0-8.3)
[2017-08-30] MEDS ORDERED: cloNIDine HCl 0.1 MG TAB ONE (00:03)
[2017-08-30 00:17] LABS: Magnesium 1.3 mg/dL (1.8-2.5)
[2017-08-30] MEDS ORDERED: Magnesium Sulfate 2gm IVPB 2 G/50 ML BAG IV ONE (01:03)
[2017-08-30] MEDS ORDERED: ACETAMINOPHEN 500 MG TAB PO PRN (02:46)
[2017-08-30] MEDS ORDERED: MORPHINE 4 MG/ML SYR IV PRN (02:46)
[2017-08-30] MEDS ORDERED: ALPRAZOLAM 0.25 MG TABLET PO PRN (02:46)
--- NOTE | 2017-08-30 02:58 | ER ---
Nurse's Notes [facility] Name: Julien Parikh Age: 67 yrs Sex: Male : 1950 Arrival Date: 08/29/2017 Time: 22:16 Bed 19 Private MD: Diagnosis: Chest pain, unspecified Presentation: 08/29 22:17 Presenting complaint: Patient states: midsternal CP that radiates to L arm since 1400 aa1 today. Pt given 324 mg ASA JUDGE by EMS. Transition of care: patient was not received from another setting of care. Onset of symptoms was August 29, 2017 at 14:00. Initial Sepsis Screen: Does the patient meet any 2 criteria? No. Patient's initial sepsis screen is negative. Does the patient have a suspected source of infection? No. Patient's initial sepsis screen is negative. Care prior to arrival: Medication(s) given: ASA, 81 mg, x 4. 22:17 Method Of Arrival: EMS: [facility] aa1 22:17 Acuity: PERRI 2 aa1 Triage Assessment: 22:19 General: Appears in no apparent distress. comfortable, Behavior is calm, cooperative, aa1 appropriate for age. Historical: - Allergies: 22:19 PENICILLINS; aa1 - Home Meds: 22:19 Advair Diskus 250-50 mcg/dose Inhl dsdv 1 puff 2 times per day [Active]; aspirin 81 mg aa1 Oral chew 1 tab once daily [Active]; atorvastatin 80 mg Oral tab 1 tab once daily [Active]; BRILINTA 90 mg Oral tab 1 tab 2 times per day [Active]; carvedilol 25 mg Oral tab 1 tab 2 times per day [Active]; hydralazine 50 mg Oral tab 1 tab Q8hrs [Active]; isosorbide mononitrate 60 mg Oral Tb24 1 tab once daily [Active]; Renagel 800 mg Oral tab 2 tabs 3 times per day [Active]; - PMHx: 22:19 Asthma; CHF; chronic kidney disease; COPD; CVA; Dialysis T-Th-Sat; Hepatitis; L arm aa1 paralysis; Myocardial infarction; Hypertension; - PSHx: 22:19 CABG; aa1 - Immunization history:: Pneumococcal vaccine is up to date, Flu vaccine is up to date. - Social history:: Smoking status: Patient uses tobacco products, smokes one-half pack cigarettes per day. Screenin/24 00:56 Abuse screen: Denies threats or abuse. Nutritional screening: No deficits noted. jd3 Tuberculosis screening: No symptoms or risk factors identified. Fall Risk IV access (20 points). Total Diop Fall Scale indicates No Risk (0-24 pts). Assessment: 08/29 23:01 General: Appears uncomfortable, Behavior is calm, cooperative, appropriate for age. jd3 Pain: Complains of pain in chest Pain does not radiate. Pain currently is 9 out of 10 on a pain scale. Quality of pain is described as pressure, sharp, Pain began 2 hours ago. Also complains of nausea. Neuro: Level of Consciousness is awake, alert, obeys commands, Oriented to person, place, time, situation. Cardiovascular: Heart tones S1 S2 present Capillary refill < 3 seconds Patient's skin is warm and dry. Respiratory: Airway is patent Respiratory effort is even, unlabored, Respiratory pattern is regular, symmetrical, Breath sounds with wheezes bilaterally. GI: Abdomen is round Bowel sounds present X 4 quads. Abd is soft and non tender X 4 quads. : No signs and/or symptoms were reported regarding the genitourinary system. EENT: No signs and/or symptoms were reported regarding the EENT system. Derm: Skin is intact, Skin is dry, Skin is normal, Skin temperature is warm. Musculoskeletal: Circulation, motion, and sensation intact. Range of motion: intact in all extremities. 23:36 Reassessment: Patient appears in no apparent distress at this time. Patient and/or jd3 family updated on plan of care and expected duration. Pain level reassessed. Patient is alert, oriented x 3, equal unlabored respirations, skin warm/dry/pink. 08/30 00:58 Reassessment: Patient appears in no apparent distress at this time. Patient and/or jd3 family updated on plan of care and expected duration. Pain level reassessed. Patient is alert, oriented x 3, equal unlabored respirations, skin warm/dry/pink. 01:59 Reassessment: Patient appears in no apparent distress at this time. Patient and/or jd3 family updated on plan of care and expected duration. Pain level reassessed. Patient is alert, oriented x 3, equal unlabored respirations, skin warm/dry/pink. Patient states feeling better. 02:45 Reassessment: Patient appears in no apparent distress at this time. Patient and/or jd3 family updated on plan of care and expected duration. Pain level reassessed. Patient is alert, oriented x 3, equal unlabored respirations, skin warm/dry/pink. 03:45 Reassessment: Patient appears in no apparent distress at this time. Patient and/or jd3 family updated on plan of care and expected duration. Pain level reassessed. Patient is alert, oriented x 3, equal unlabored respirations, skin warm/dry/pink. 04:04 Reassessment: Pt complained of pain. Discussed with Dr Chicas and pt to get Morphine fc and Zofran. 04:25 Reassessment: Patient appears in no apparent distress at this time. Patient and/or jd3 family updated on plan of care and expected duration. Pain level reassessed. Patient is alert, oriented x 3, equal unlabored respirations, skin warm/dry/pink. pt reporting understanding of need for admission. Vital Signs: 08/29 22:19 BP 166 / 83; Pulse 80; Resp 18; Temp 98.4; Pulse Ox 100% on R/A; Weight 68.49 kg; aa1 Height 5 ft. 11 in. (180.34 cm); Pain 9/10; 23:35 BP 185 / 90; Pulse 82; Resp 18 S; Pulse Ox 100% on 2 lpm NC; jd3 0424 00:54 BP 190 / 81; Pulse 64; Resp 17 S; Pulse Ox 100% on 2 lpm NC; jd3 01:59 BP 140 / 75; Pulse 62; Resp 14 S; Pulse Ox 100% on 2 lpm NC; jd3 04:14 BP 137 / 69; Pulse 81; Resp 17 S; Pulse Ox 100% on 2 lpm NC; jd3 08/29 22:19 Body Mass Index 21.06 (68.49 kg, 180.34 cm) aa1 ED Course: 08/29 22:16 Patient arrived in ED. aa1 22:18 Triage completed. aa1 22:19 Arm band placed on right wrist. Patient placed in an exam room, on a stretcher. aa1 22:20 Efren Chicas MD is Attending Physician. kdr 22:45 X-ray completed. Portable x-ray completed in exam room. Patient tolerated procedure kc2 well. 22:46 XRAY Chest (1 view) In Process Unspecified. EDMS 23:01 Kirby Champion RN is Primary Nurse. jd3 23:25 Inserted 18 gauge 8 cm midline to right upper brachial vein. Line with good blood fc return and flushes well. Blood collected. 08/30 00:56 Patient has correct armband on for positive identification. site monitor on. Pulse jd3 ox on. NIBP on. 00:57 Oxygen administration via nasal cannula \T\ 2L/min. jd3 02:57 Eric Andrews MD is Hospitalizing Provider. kdr 04:05 No provider procedures requiring assistance completed. Patient admitted, IV remains in fc place. 04:52 Primary Nurse role handed off by Kirby Champion RN rg2 Administered Medications: 08/29 23:34 Drug: morphine 4 mg Route: IVP; Site: right antecubital; jd3 08/30 00:09 Follow up: Response: Pain is decreased jd3 08/29 23:34 Drug: Zofran 4 mg Route: IVP; Site: right antecubital; jd3 08/30 00:10 Follow up: Response: Nausea is decreased jd3 00:09 Drug: cloNIDine 0.2 mg Route: PO; jd3 01:13 Follow up: Response: No adverse reaction jd3 01:09 Drug: Magnesium Sulfate 2 grams Route: IVPB; Infused Over: 2 hrs; Site: right jd3 antecubital; 04:17 Follow up: Response: No adverse reaction; IV Status: Completed infusion jd3 04:13 Drug: morphine 4 mg Route: IVP; Site: right antecubital; jd3 04:26 Follow up: Response: Pain is decreased jd3 04:13 Drug: Zofran 4 mg Route: IVP; Site: right antecubital; jd3 04:26 Follow up: Response: Nausea is decreased jd3 Outcome: 02:57 Decision to Hospitalize by Provider. kdr 04:15 Condition: stable jd3 04:15 Instructed on the need for admit, Demonstrated understanding of instructions. 04:25 Admitted to Tele accompanied by nurse, via wheelchair, with oxygen, with chart, Report jd3 called to Yessi JONAS 04:33 Patient left the ED. jd3 04:55 Patient left the ED. rg2 Signatures: Dispatcher [employer] EDCheri Tavera rg2 Maria C Styles RN RN aa1 Efren Chicas MD MD kdr Lucila Langston RN RN fc Carr, Kelsie kc2 Davies, Jonathon, RN RN jd3 Corrections: (The following items were deleted from the chart) 00:57 00:57 Patient maintains SpO2 saturation greater than 95% on room air. jd3 jd3 00:58 08/29 23:35 BP 185 / 90; Pulse 82bpm; Resp 18bpm; Spontaneous; Pulse Ox 100% RA; jd3 jd3 08/30 00:58 00:54 BP 190 / 81; Pulse 64bpm; Resp 17bpm; Spontaneous; Pulse Ox 100% RA; jd3 jd3
--- NOTE | 2017-08-30 02:58 | EDPHYS ---
Physician Documentation [facility] Name: Julien Parikh Age: 67 yrs Sex: Male : 1950 Arrival Date: 08/29/2017 Time: 22:16 Bed 19 Private MD: ED Physician Efren Chicas HPI: 08/30 01:05 This 67 yrs old Black Male presents to ER via EMS with complaints of Chest Pain > 30 kdr y/o. 01:05 The patient or guardian reports chest pain that is located primarily in the substernal kdr area, anterior chest wall, bilaterally, chest diffusely. Onset: suddenly, just prior to arrival, today. Onset: Earlier this afternoon. The pain does not radiate. Associated signs and symptoms: Pertinent positives: nausea, Pertinent negatives: abdominal pain, cough, diaphoresis, dizziness, headache, lower extremity pain, lower extremity swelling, lightheadedness. The chest pain is described as aching, dull, a heaviness, a pressure. Duration: The patient or guardian reports a single episode, that is still ongoing, and unchanged. Modifying factors: The symptoms are alleviated by nothing. the symptoms are aggravated by cough, deep breath, movement. Severity of pain: At its worst the pain was mild moderate just prior to arrival, in the emergency department the pain is unchanged. The patient has experienced similar episodes in the past, multiple times. The patient has not recently seen a physician. Historical: - Allergies: 08/29 22:19 PENICILLINS; aa1 - Home Meds: 22:19 Advair Diskus 250-50 mcg/dose Inhl dsdv 1 puff 2 times per day [Active]; aspirin 81 mg aa1 Oral chew 1 tab once daily [Active]; atorvastatin 80 mg Oral tab 1 tab once daily [Active]; BRILINTA 90 mg Oral tab 1 tab 2 times per day [Active]; carvedilol 25 mg Oral tab 1 tab 2 times per day [Active]; hydralazine 50 mg Oral tab 1 tab Q8hrs [Active]; isosorbide mononitrate 60 mg Oral Tb24 1 tab once daily [Active]; Renagel 800 mg Oral tab 2 tabs 3 times per day [Active]; - PMHx: 22:19 Asthma; CHF; chronic kidney disease; COPD; CVA; Dialysis T-Th-Sat; Hepatitis; L arm aa1 paralysis; Myocardial infarction; Hypertension; - PSHx: 22:19 CABG; aa1 - Immunization history:: Pneumococcal vaccine is up to date, Flu vaccine is up to date. - Social history:: Smoking status: Patient uses tobacco products, smokes one-half pack cigarettes per day. ROS: 08/30 01:05 Constitutional: Negative for fever, chills, and weight loss, Eyes: Negative for injury, kdr pain, redness, and discharge, ENT: Negative for injury, pain, and discharge, Neck: Negative for injury, pain, and swelling, Respiratory: Negative for shortness of breath, cough, wheezing, and pleuritic chest pain, Abdomen/GI: Negative for abdominal pain, nausea, vomiting, diarrhea, and constipation, Back: Negative for injury and pain, : Negative for injury, bleeding, discharge, and swelling, MS/Extremity: Negative for injury and deformity, Skin: Negative for injury, rash, and discoloration, Neuro: Negative for headache, weakness, numbness, tingling, and seizure activity. Psych: Negative for depression, anxiety, suicide ideation, homicidal ideation, and hallucinations, Allergy/Immunology: Negative for hives, rash, and allergies, Endocrine: Negative for neck swelling, polydipsia, polyuria, polyphagia, and marked weight changes, Hematologic/Lymphatic: Negative for swollen nodes, abnormal bleeding, and unusual bruising. Cardiovascular: Positive for chest pain, Negative for edema, orthopnea, palpitations, paroxysmal nocturnal dyspnea. Exam: 01:05 Constitutional: This is a well developed, well nourished patient who is awake, alert, kdr and in no acute distress. Head/Face: Normocephalic, atraumatic. Eyes: Pupils equal round and reactive to light, extra-ocular motions intact. Lids and lashes normal. Conjunctiva and sclera are non-icteric and not injected. Cornea within normal limits. Periorbital areas with no swelling, redness, or edema. Neck: Trachea midline, no thyromegaly or masses palpated, and no cervical lymphadenopathy. Supple, full range of motion without nuchal rigidity, or vertebral point tenderness. No Meningismus. Chest/axilla: Normal chest wall appearance and motion. Nontender with no deformity. No lesions are appreciated. Cardiovascular: Regular rate and rhythm with a normal S1 and S2. No gallops, murmurs, or rubs. Normal PMI, no JVD. No pulse deficits. Respiratory: Lungs have equal breath sounds bilaterally, clear to auscultation and percussion. No rales, rhonchi or wheezes noted. No increased work of breathing, no retractions or nasal flaring. Abdomen/GI: Soft, non-tender, with normal bowel sounds. No distension or tympany. No guarding or rebound. No evidence of tenderness throughout. Back: No spinal tenderness. No costovertebral tenderness. Full range of motion. Skin: Warm, dry with normal turgor. Normal color with no rashes, no lesions, and no evidence of cellulitis. MS/ Extremity: Pulses equal, no cyanosis. Neurovascular intact. Full, normal range of motion. Neuro: Awake and alert, GCS 15, oriented to person, place, time, and situation. Cranial nerves II-XII grossly intact. Motor strength 5/5 in all extremities. Sensory grossly intact. Cerebellar exam normal. Normal gait. Psych: Awake, alert, with orientation to person, place and time. Behavior, mood, and affect are within normal limits. Vital Signs: 08/29 22:19 BP 166 / 83; Pulse 80; Resp 18; Temp 98.4; Pulse Ox 100% on R/A; Weight 68.49 kg; aa1 Height 5 ft. 11 in. (180.34 cm); Pain 9/10; 23:35 BP 185 / 90; Pulse 82; Resp 18 S; Pulse Ox 100% on 2 lpm NC; jd3 08/30 00:54 BP 190 / 81; Pulse 64; Resp 17 S; Pulse Ox 100% on 2 lpm NC; jd3 01:59 BP 140 / 75; Pulse 62; Resp 14 S; Pulse Ox 100% on 2 lpm NC; jd3 04:14 BP 137 / 69; Pulse 81; Resp 17 S; Pulse Ox 100% on 2 lpm NC; jd3 08/29 22:19 Body Mass Index 21.06 (68.49 kg, 180.34 cm) aa1 MDM: 02:57 Patient medically screened. kdr 02:58 Data reviewed: vital signs, nurses notes, lab test result(s), radiologic studies. kdr Counseling: I had a detailed discussion with the patient and/or guardian regarding: the historical points, exam findings, and any diagnostic results supporting the discharge/admit diagnosis, lab results, radiology results, the need for further work-up and treatment in the hospital. 08/29 22:21 Order name: Basic Metabolic Panel; Complete Time: 02: [facility] 08/29 22:21 Order name: BNP; Complete Time: 02: [facility] 08/29 22:21 Order name: CBC with Diff; Complete Time: 23:58 kdr 08/29 22:21 Order name: LFT's; Complete Time: 02: [facility] 08/29 22:21 Order name: Magnesium; Complete Time: 02: kdr 08/29 22:21 Order name: PT-INR; Complete Time: 23:58 kdr 08/29 22:21 Order name: Ptt, Activated; Complete Time: :58 [facility] 08/29 22:21 Order name: Troponin (emerg Dept Use Only); Complete Time: :58 [facility] 08/29 23:59 Order name: Troponin (emerg Dept Use Only): Repeat in three (3) hours; Complete Time: kdr 05:19 08/30 02:49 Order name: Basic Metabolic Panel [facility] 08/30 02:49 Order name: Basic Metabolic Panel [facility] 08/30 02:49 Order name: CBC with Automated Diff [facility] 08/30 02:49 Order name: CBC with Automated Diff [facility] 08/30 02:49 Order name: Lipid Profile [facility] 08/29 22:21 Order name: XRAY Chest (1 view) [facility] 08/29 22:21 Order name: EKG; Complete Time: 22:22 [facility] 08/30 02:49 Order name: CONS Physician Consult [facility] 08/30 02:49 Order name: Heart Healthy [facility] 08/30 02:49 Order name: EKG Electrocardiogram [facility] 08/30 02:49 Order name: Lipid Profile [facility] 08/30 02:49 Order name: Troponin I [facility] 08/30 02:49 Order name: Troponin I [facility] 08/30 02:49 Order name: Troponin I [facility] 08/30 04:54 Order name: Urine Dipstick--Ancillary (enter results) [facility] 08/29 22:21 Order name: Cardiac monitoring; Complete Time: 23:34 [facility] 08/29 22:21 Order name: EKG - Nurse/Tech; Complete Time: 23:34 [facility] 08/29 22:21 Order name: IV Saline Lock; Complete Time: 23:34 kdr 08/29 22:21 Order name: Labs collected and sent; Complete Time: 23:34 kdr 08/29 22:21 Order name: O2 Per Protocol; Complete Time: 23:34 kdr 08/29 22:21 Order name: O2 Sat Monitoring; Complete Time: 23:34 kdr 08/30 02:49 Order name: EKG Electrocardiogram EDMS Administered Medications: 08/29 23:34 Drug: morphine 4 mg Route: IVP; Site: right antecubital; jd3 08/30 00:09 Follow up: Response: Pain is decreased jd3 08/29 23:34 Drug: Zofran 4 mg Route: IVP; Site: right antecubital; jd3 08/30 00:10 Follow up: Response: Nausea is decreased jd3 00:09 Drug: cloNIDine 0.2 mg Route: PO; jd3 01:13 Follow up: Response: No adverse reaction jd3 01:09 Drug: Magnesium Sulfate 2 grams Route: IVPB; Infused Over: 2 hrs; Site: right jd3 antecubital; 04:17 Follow up: Response: No adverse reaction; IV Status: Completed infusion jd3 04:13 Drug: morphine 4 mg Route: IVP; Site: right antecubital; jd3 04:26 Follow up: Response: Pain is decreased jd3 04:13 Drug: Zofran 4 mg Route: IVP; Site: right antecubital; jd3 04:26 Follow up: Response: Nausea is decreased jd3 Disposition: 08/30/17 02:57 Hospitalization ordered by Eric Andrews for Observation. Preliminary diagnosis is Chest pain, unspecified. - Bed requested for Telemetry/MedSurg (observation). - Status is Observation. rg2 - Condition is Fair. - Problem is new. - Symptoms have improved. UTI on Admission? No Signatures: Dispatcher [employer] EDMS Cheri Shaffer rg2 Edilia Noguera RN RN kl Kern, Alissa, RN RN aa1 Efren Chicas MD MD kdr Davies, Jonathon, RN RN jd3
[2017-08-30] MEDS ORDERED: ONDANSETRON 4 MG/2 ML VIAL ONE (04:05)
[2017-08-30] MEDS ORDERED: MORPHINE 4 MG/ML SYR ONE (04:05)
[2017-08-30 05:05] VITALS: BMI 22.9
[2017-08-30 05:24] LABS: Urine Blood NEGATIVE (NEG); Urine Glucose NEGATIVE (NEG); Urine Protein 3+ (NEG); Urine pH 6.5 (5.0-7.0)
[2017-08-30 06:42] LABS: Magnesium 2.2 mg/dL (1.8-2.5)
--- NOTE | 2017-08-30 06:47 | RAD REPORT ---
EXAM DESCRIPTION: RAD - Chest Single View - 08/29/2017 10:46 pm CLINICAL HISTORY: Mid sternal chest pain COMPARISON: July 19 TECHNIQUE: AP portable chest image was obtained 2241 hours . FINDINGS: Lungs are clear. Heart and vasculature are normal. No measurable pleural effusion and no p neumothorax. No gross bony abnormality seen. No acute aortic findings suspected. Sternotomy wires are in place. Double-lumen dialysis catheter in place unchanged. IMPRESSION: No acute cardiopulmonary process. No significant interval change.
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
[2017-08-30] MEDS: Morphine 2 MG/2 ML SYR IV PRN ×4 (08:22→22:45)
[2017-08-30] MEDS: TICAGRELOR 90 MG TABLET PO SCH ×2 (08:23→22:40)
[2017-08-30] MEDS: METOPROLOL TAR 50 MG TAB PO SCH ×2 (08:23→22:30)
[2017-08-30] MEDS ORDERED: ISOSORBIDE MONO SR 30 MG TAB PO SCH (09:00)
[2017-08-30] MEDS ORDERED: HYDRALAZINE HCL 25 MG TABLET PO SCH (09:00)
[2017-08-30] MEDS ORDERED: ASPIRIN 325 MG TAB PO SCH (09:00)
[2017-08-30] MEDS ORDERED: ENOXAPARIN 30 MG/0.3 ML SQ SCH (09:00)
[2017-08-30 09:51] VITALS: TEMP 97
--- NOTE | 2017-08-30 11:25 | EKG ---
Test Date: 2017-08-30 Test Time: 08:29:24 Artificial Cherry Maker: CARMEN MEASUREMENT RESULTS: Intervals: Rate: 65 NM: 134 QRSD: 86 QT: 484 QTc: 503 [place]: P: 65 NM: 134 QRS: 26 T: -81 INTERPRETIVE STATEMENTS: Normal sinus rhythm with sinus arrhythmia Marked ST abnormality, possible inferior subendocardial injury Prolonged QT Abnormal ECG Compared to ECG 08/30/2017 02:14:04 Possible ischemia no longer present ST (T wave) deviation still present Electronically Signed On 08-30-17 11:23:49 CDT by Jono Hauser
--- NOTE | 2017-08-30 11:26 | EKG ---
Test Date: 2017-08-29 Test Time: 22:16:54 Logging Engineer: SARBJIT MEASUREMENT RESULTS: Intervals: Rate: 78 MO: 126 QRSD: 74 QT: 404 QTc: 460 [place]: P: 73 MO: 126 QRS: -3 T: 259 INTERPRETIVE STATEMENTS: Normal sinus rhythm Right atrial enlargement ST & T wave abnormality, consider inferolateral ischemia Prolonged QT Abnormal ECG Compared to ECG 07/19/2017 05:29:51 Atrial abnormality now present Prolonged QT interval now present ST (T wave) deviation still present Possible ischemia still present Electronically Signed On 08-30-17 11:23:59 CDT by Jono Hauser
--- NOTE | 2017-08-30 11:26 | EKG ---
Test Date: 2017-08-30 Test Time: 02:14:04 Purchasing Engineer: SARBJIT MEASUREMENT RESULTS: Intervals: Rate: 60 VT: 140 QRSD: 80 QT: 484 QTc: 484 [place]: P: 79 VT: 140 QRS: -5 T: 269 INTERPRETIVE STATEMENTS: Normal sinus rhythm ST & T wave abnormality, consider inferolateral ischemia Prolonged QT Abnormal ECG Compared to ECG 08/29/2017 22:16:54 Atrial abnormality no longer present ST (T wave) deviation still present Possible ischemia still present Electronically Signed On 08-30-17 11:23:55 CDT by Jono Hauser
[2017-08-30 13:36] VITALS: O2SAT 99
[2017-08-30 17:10] VITALS: BP 102/54
[2017-08-30] MEDS ORDERED: NA CHLORIDE 0.9% 1,000 ML IV PRN (18:31)
[2017-08-30] MEDS ORDERED: MANNITOL 25% 12.5 GM/50 ML VIAL IV PRN (18:31)
[2017-08-30] MEDS ORDERED: EPOETIN ALFA 10,000 UNIT/ML VIAL IV SCH (18:45)
[2017-08-30] MEDS ORDERED: ALBUMIN HUMAN 25% 50 ML IV SCH (19:00)
[2017-08-30] MEDS ORDERED: ATORVASTATIN 20 MG TAB PO SCH (21:00)
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
--- NOTE | 2017-08-31 01:03 | CON ---
Date of Consultation: 08/30/2017 The patient admitted on 08/30/2017. I saw him on 08/30/2017. Additional Admitting Physician: Dr. Worthy. Reason For Consultation: Stable angina. History Of Present Illness: Mr. Parikh is a 67-year-old black male. He is a frequent visitor of [facility]. He has known coronary artery disease, status post CABG. In June of 2017, Dr. Luis Eduardo Alanis cath'ed him. He had a patent LALA to the LAD. He had a patent saphenous vein graft to the RC A. There were stents in the RCA that were patent. He had a circumflex system that has some mild-to- moderate disease. The decision was to treat him medically. He comes back with stable angina. Denie d PND, orthopnea, pedal edema, palpitations, or syncope. His BNP was 119. Troponin was negative. Past Medical History: His past medical history is extensive. He has a history of chronic diastolic congestive heart failure, COPD, CVD, hemodialysis for end-stage renal disease, hypertension, and dysl ipidemia. Allergies: HE IS ALLERGIC TO PENICILLIN. Review of Systems: Negative. Social History: Negative. Family History: Negative. Medications: At home include Imdur, inhalers, Prinivil, Brilinta, Coreg, hydralazine, Lipitor, Norva sc, and aspirin. Physical Examination: General: He was pleasant, smiling, in no acute distress. Vital Signs: Stable, afebrile. HEENT: Negative. Neck: Supple with no bruit, JVD, or thyromegaly. Chest: Clear to auscultation and percussion. Cardiac: Revealed a regular rhythm and rate with S4 gallops. No murmurs or rubs. Abdomen: Benign. Extremities: Revealed no clubbing, cyanosis, or edema. EKG shows LVH. Chest x-ray was negative. BNP 119. Triglycerides 232. Hemoglobin 11.2. Creatinine 5.12. Troponin is negative. Impression And Plan: 1.Stable angina. 2.History of coronary artery disease, status post coronary artery bypass graft, status post stent wi patent stent, patent graft to the right coronary artery, patent left internal mammary artery to [facility] left anterior descending artery by catheterization in June of 2017. 3.End-stage renal disease, on hemodialysis. 4.Hypertension. 5.Dyslipidemia, well controlled. 6.History of cardiovascular disease. 7.Chronic obstructive pulmonary disease. 8.Allergy to penicillin. I would definitely not embark any more cardiac workup on Mr. Parikh. I would definitely add Ranexa 500 mg 1 p.o. b.i.d. to his regimen. We can also increase the Imdur if we have to or even increase t he Coreg if we have to, but he can certainly go home whenever it is okay with Dr. Worthy. VERA/NELLA Voice ID: [id number] Report ID: [id number]
== END 2017-08-30 23:10 | disposition home or self-care (01) ==
LOC: ER 22:13 → ERHOLD 08-30 03:27 → 4TH 08-30 04:03
PROVIDERS: ADMIT Hospitalist; ATTEND Hospitalist
PROC: 5A1D70Z Performance of Urinary Filtration, Intermittent, Less than 6 Hours Per Day (ICD-10-PCS; principal; 2017-08-30)
DX: R07.9 Chest pain, unspecified (principal); I25.10 Atherosclerotic heart disease of native coronary artery without angina pectoris; J44.9 Chronic obstructive pulmonary disease, unspecified; I13.2 Hypertensive heart and chronic kidney disease with heart failure and with stage 5 chronic kidney disease, or end stage renal disease; N18.6 End stage renal disease; I50.32 Chronic diastolic (congestive) heart failure; D63.1 Anemia in chronic kidney disease; E83.42 Hypomagnesemia; Z95.5 Presence of coronary angioplasty implant and graft; Z95.1 Presence of aortocoronary bypass graft; Z88.0 Allergy status to penicillin
CPT/HCPCS: 36415; 71045; 80048; 80061; 80076; 81003; 83735 ×2; 83880; 84484 ×4; 85025; 85610; 85730; 90935; 93005 ×3; 96365; 96366; 96375; 99285; G0257; G0378 ×2; J1650; J2270 ×4; J2405 ×2; J3475; Q4081

== ENCOUNTER 2017-09-21 13:19 | Emergency (ER) | payer OTHER ==
[2017-09-21] MEDS ORDERED: FENTANYL CITR 100 MCG/2 ML ONE (13:39)
[2017-09-21] MEDS ORDERED: LEVALBUTEROL 1.25 MG/3 ML NEB ONE (13:39)
[2017-09-21] MEDS ORDERED: ONDANSETRON 4 MG/2 ML VIAL ONE (13:39)
--- NOTE | 2017-09-21 14:33 | EKG ---
Test Date: 2017-09-21 Test Time: 13:32:30 Truck Service Manager: ROSETTE MEASUREMENT RESULTS: Intervals: Rate: 75 CT: 126 QRSD: 90 QT: 442 QTc: 493 [place]: P: 71 CT: 126 QRS: -3 T: 264 INTERPRETIVE STATEMENTS: Normal sinus rhythm ST & T wave abnormality, consider inferolateral ischemia Prolonged QT Abnormal ECG Compared to ECG 08/30/2017 08:29:24 Possible ischemia now present Sinus arrhythmia no longer present ST (T wave) deviation still present Electronically Signed On 09-21-17 14:33:32 CDT by Luis Eduardo Alanis
[2017-09-21 14:37] LABS: Absolute Lymphocytes (CBC) 0.8 K/uL (0.7-4.9); Absolute Monocytes 0.3 K/uL (0.1-1.3); Absolute Neutrophil 3.7 K/uL (1.8-8.0); Basophils % 0.7 % (0-1.3); Eosinophils % 0.2 % (0-4.4); Hematocrit 34.5 % (39.6-49.0); Lymphocytes % 16.7 % (15.3-44.8); MCH 32.1 pg (27.0-35.0); MCV 98.1 fL (80-100); Monocytes % 7.1 % (3.3-12.3); RBC Red Blood Cell Count 3.52 M/uL (4.33-5.43)
[2017-09-21 14:40] LABS: Protime INR 1.02
[2017-09-21 14:50] LABS: Potassium 3.9 mEq/L (3.6-5.0)
[2017-09-21 14:56] LABS: Albumin 3.8 g/dL (3.2-5.5); Bilirubin Direct 0.1 mg/dL (0-0.2); Bilirubin Total 0.6 mg/dL (0.3-1.2); Protein, Total 7.2 g/dL (6.0-8.3)
[2017-09-21 15:12] LABS: Magnesium 1.2 mg/dL (1.8-2.5)
--- NOTE | 2017-09-21 15:18 | RAD REPORT ---
EXAM DESCRIPTION: Dorothy Single View09/21/2017 2:19 pm CLINICAL HISTORY: Chest pain COMPARISON: None FINDINGS: The lungs appear clear of acute infiltrate. The heart is normal size. A battery pack over lies the left chest. A central venous catheter has its limbs in the superior vena Postsurgical changes involve the chest. IMPRESSION: No acute abnormalities displayed
[2017-09-21] MEDS ORDERED: Magnesium Sulfate 2gm IVPB 2 G/50 ML BAG IV ONE (15:22)
--- NOTE | 2017-09-21 16:50 | EDPHYS ---
Physician Documentation [facility] Name: Julien Parikh Age: 67 yrs Sex: Male : 1950 Arrival Date: 09/21/2017 Time: 13:23 Bed 2 Private MD: ED Physician Efren Chicas HPI: 09/21 13:29 This 67 yrs old Black Male presents to ER via Unassigned with complaints of Chest Pain. jr8 13:29 The patient or guardian reports chest pain that is located primarily in the substernal jr8 area. Onset: acutely, this morning, yesterday. The pain radiates to the left arm. Associated signs and symptoms: Pertinent positives: nausea, vomiting. The chest pain is described as a heaviness. Duration: The patient or guardian reports a single episode, that is still ongoing. Modifying factors: The symptoms are alleviated by nothing. the symptoms are aggravated by nothing. Severity of pain: At its worst the pain was moderate in the emergency department the pain is unchanged. The patient has not experienced similar symptoms in the past. The patient has not recently seen a physician. Patient stated that he will have chest pain from time to time. Never this severe nor dose it normally radiate. Today with radiation down left arm. Extensive heart history in the past including having triple bypass . Historical: - Allergies: 13:34 PENICILLINS; jl7 - Home Meds: 13:34 Advair Diskus 250-50 mcg/dose Inhl dsdv 1 puff 2 times per day [Active]; aspirin 81 mg jl7 Oral chew 1 tab once daily [Active]; atorvastatin 80 mg Oral tab 1 tab once daily [Active]; BRILINTA 90 mg Oral tab 1 tab 2 times per day [Active]; carvedilol 25 mg Oral tab 1 tab 2 times per day [Active]; hydralazine 50 mg Oral tab 1 tab Q8hrs [Active]; isosorbide mononitrate 60 mg Oral Tb24 1 tab once daily [Active]; Renagel 800 mg Oral tab 2 tabs 3 times per day [Active]; - PMHx: 13:34 Asthma; CHF; COPD; chronic kidney disease; CVA; Dialysis T-Th-Sat; Hepatitis; jl7 Hypertension; L arm paralysis; Myocardial infarction; triple bypass; - Immunization history:: Adult Immunizations unknown. - Social history:: Smoking status: Patient uses tobacco products, smokes one-half pack cigarettes per day. ROS: 13:29 Eyes: Negative for injury, pain, redness, and discharge, ENT: Negative for injury, jr8 pain, and discharge, Neck: Negative for injury, pain, and swelling, Respiratory: Negative for shortness of breath, cough, wheezing, and pleuritic chest pain, Back: Negative for injury and pain, MS/Extremity: Negative for injury and deformity, Skin: Negative for injury, rash, and discoloration, Neuro: Negative for headache, weakness, numbness, tingling, and seizure. 13:29 Cardiovascular: Positive for chest pain, Negative for edema, orthopnea, palpitations, paroxysmal nocturnal dyspnea. 13:29 Abdomen/GI: Positive for nausea and vomiting, Negative for abdominal pain, constipation, abdominal cramps, abdominal distension, anorexia, dysphagia, hematemesis, black/tarry stool, rectal pain, rectal bleeding, bowel incontinence, flatulence. Exam: 13:29 Eyes: Pupils equal round and reactive to light, extra-ocular motions intact. Lids and jr8 lashes normal. Conjunctiva and sclera are non-icteric and not injected. Cornea within normal limits. Periorbital areas with no swelling, redness, or edema. ENT: Nares patent. No nasal discharge, no septal abnormalities noted. Tympanic membranes are normal and external auditory canals are clear. Oropharynx with no redness, swelling, or masses, exudates, or evidence of obstruction, uvula midline. Mucous membranes moist. Neck: Trachea midline, no thyromegaly or masses palpated, and no cervical lymphadenopathy. Supple, full range of motion without nuchal rigidity, or vertebral point tenderness. No Meningismus. Cardiovascular: Regular rate and rhythm with a normal S1 and S2. No gallops, murmurs, or rubs. Normal PMI, no JVD. No pulse deficits. Respiratory: Lungs have equal breath sounds bilaterally, clear to auscultation and percussion. No rales, rhonchi or wheezes noted. No increased work of breathing, no retractions or nasal flaring. Abdomen/GI: Soft, non-tender, with normal bowel sounds. No distension or tympany. No guarding or rebound. No evidence of tenderness throughout. Back: No spinal tenderness. No costovertebral tenderness. Full range of motion. Skin: Warm, dry with normal turgor. Normal color with no rashes, no lesions, and no evidence of cellulitis. MS/ Extremity: Pulses equal, no cyanosis. Neurovascular intact. Full, normal range of motion. Neuro: Awake and alert, GCS 15, oriented to person, place, time, and situation. Cranial nerves II-XII grossly intact. Motor strength 5/5 in all extremities. Sensory grossly intact. Cerebellar exam normal. Normal gait. Vital Signs: 13:34 BP 112 / 69; Pulse 83; Resp 20 S; Pulse Ox 100% on R/A; Weight 71.67 kg (R); Height 5 jl7 ft. 8 in. (172.72 cm) (R); Pain 9/10; 13:34 Temp 98(O); jl7 14:37 BP 146 / 78; Pulse 68; Resp 16 S; Pulse Ox 100% on R/A; jl7 15:30 BP 140 / 74; Pulse 72; Resp 16; Pulse Ox 98% ; jl7 16:18 BP 143 / 82; Pulse 76; Resp 17; Pulse Ox 99% on R/A; ae1 17:00 BP 160 / 81; Pulse 77; Resp 16; Pulse Ox 98% ; jl7 17:30 BP 148 / 83; Pulse 71; Resp 16; Pulse Ox 98% ; jl7 17:50 BP 165 / 84; Pulse 73; Resp 16; Pulse Ox 98% ; jl7 13:34 Body Mass Index 24.02 (71.67 kg, 172.72 cm) jl7 MDM: 13:28 Patient medically screened. jr8 16:46 HEART Score: History: Moderately Suspicious (1), ECG: Non specific repolarization jr8 disturbance / LBTB / PM (1), Age: > or = 65 years (2), Risk Factors: > or = 3 Risk factors for atherosclerotic disease (2), [Hypercholesterolemia] [Hypertension] [Active Smoker] Troponin: < or = 1 x Normal Limit (0). The patient was not given aspirin in the Emergency Department. Administered by EMS. Data reviewed: vital signs, nurses notes, lab test result(s), EKG, radiologic studies, plain films, and as a result, I will admit patient. Data interpreted: Pulse oximetry: on room air is 99 %. Interpretation: normal. Counseling: I had a detailed discussion with the patient and/or guardian regarding: the historical points, exam findings, and any diagnostic results supporting the discharge/admit diagnosis, lab results, radiology results, the need for further work-up and treatment in the hospital. Physician consultation: Padmini Worthy MD was called at 16:49, was contacted at 16:49, regarding admission, to the telemetry unit. consult, patient's condition, and will see patient. 17:09 ED course: Dr. Worthy came and saw patient. Dr. Hauser also contacted. Stated that from cardiac stand point nothing more can be done. Dr. Worthy set up appointment for him to see Dr. Hauser tomorrow. Patient good with this and will go home . 09/21 13:29 Order name: Basic Metabolic Panel; Complete Time: 15:13 09/21 13:29 Order name: BNP; Complete Time: 15:03 09/21 13:29 Order name: CBC with Diff; Complete Time: 14:48 09/21 13:29 Order name: LFT's; Complete Time: 15:13 09/21 13:29 Order name: Magnesium; Complete Time: 15:13 09/21 13:29 Order name: PT-INR; Complete Time: 14:48 09/21 13:29 Order name: Troponin (emerg Dept Use Only); Complete Time: 15:03 09/21 13:29 Order name: XRAY Chest (1 view); Complete Time: 15:22 09/21 13:24 Order name: EKG; Complete Time: 13:24 09/21 13:24 Order name: EKG - Nurse/Tech; Complete Time: 14:27 09/21 13:29 Order name: Cardiac monitoring; Complete Time: 14:26 09/21 13:29 Order name: IV Saline Lock; Complete Time: 14:26 09/21 13:29 Order name: Labs collected and sent; Complete Time: 14:26 09/21 13:29 Order name: O2 Per Protocol; Complete Time: 14:26 09/21 13:29 Order name: O2 Sat Monitoring; Complete Time: 14:26 09/21 16:46 Order name: EKG; Complete Time: 16:46 jr8 Administered Medications: 13:45 Drug: Xopenex 1.25 mg Route: Inhalation; jl7 14:15 Follow up: Response: No adverse reaction; Marked relief of symptoms jl7 14:05 Drug: Zofran 4 mg Route: IVP; Site: right antecubital; jl7 14:30 Follow up: Response: No adverse reaction jl7 14:07 Drug: fentaNYL (PF) 50 mcg Route: IVP; Site: right antecubital; jl7 14:30 Follow up: Response: No adverse reaction; Pain is decreased jl7 15:27 Drug: fentaNYL (PF) 50 mcg Route: IVP; Site: right antecubital; jl7 16:00 Follow up: Response: No adverse reaction; Pain is decreased jl7 15:30 Drug: Magnesium Sulfate 2 grams Route: IVPB; Infused Over: 2 hrs; Site: right jl7 antecubital; 16:30 Follow up: Response: No adverse reaction; IV Status: Completed infusion jl7 Disposition: 09/21/17 17:09 Discharged to Home. Impression: Chest pain, unspecified. - Condition is Stable. - Discharge Instructions: Nonspecific Chest Pain, Aspirin and Your Heart. - Medication Reconciliation Form, Thank You Letter, Antibiotic Education, Prescription Opioid Use form. - Follow up: Jono Hauser MD; When: Tomorrow; Reason: Recheck today's complaints, Continuance of care, Re-evaluation by your physician. - Problem is new. - Symptoms have improved. Addendum: 09/22/2017 22:22 Co-signature as Attending Physician, Efren Chicas MD I agree with the assessment and k dr plan of care. Signatures: Dispatcher [employer] [facility] Efren Chicas MD MD [facility] Tank Ramos PA PA jr8 Bill Khan RN RN jl7 Corrections: (The following items were deleted from the chart) 09/21 17:09 16:49 Hospitalization Ordered by Padmini Worthy MD for Observation. Preliminary jr8 diagnosis is Chest pain, unspecified. Bed requested for Telemetry/MedSurg (observation). Status is Observation. Condition is Stable. Problem is new. Symptoms are unchanged. UTI on Admission? No. jr8 17:10 16:46 TROPONIN (EMERG DEPT USE ONLY)+C.LAB.BRZ ordered. [facility] EDMS 18:08 17:09 09/21/2017 17:09 Discharged to Home. Impression: Chest pain, unspecified. jl7 Condition is Stable. Forms are Medication Reconciliation Form, Thank You Letter, Antibiotic Education, Prescription Opioid Use. Follow up: Jono Hauser; When: Tomorrow; Reason: Recheck today's complaints, Continuance of care, Re-evaluation by your physician. Problem is new. Symptoms have improved. jr8
--- NOTE | 2017-09-21 16:50 | ER ---
Nurse's Notes [facility] Name: Julien Parikh Age: 67 yrs Sex: Male : 1950 Arrival Date: 09/21/2017 Time: 13:23 Bed 2 Private MD: Diagnosis: Chest pain, unspecified Presentation: 09/21 13:29 Presenting complaint: EMS states: Chest pain/pressure rated 9/10 started at 3 this jl7 morning, radiates to left arm, mild shortness of breath. Dialysis T/T/S, last dialysis on Tuesday. Transition of care: patient was not received from another setting of care. Onset of symptoms was September 21, 2017. Initial Sepsis Screen: Does the patient meet any 2 criteria? No. Patient's initial sepsis screen is negative. Does the patient have a suspected source of infection? No. Patient's initial sepsis screen is negative. Care prior to arrival: Medication(s) given: ASA, 81 mg, x 4, Nitro x1. 13:29 Method Of Arrival: EMS: [facility] 13:29 Acuity: PERRI 2 jl7 Triage Assessment: 13:34 General: Appears in no apparent distress. uncomfortable, Behavior is calm, cooperative, jl7 appropriate for age. Pain: Complains of pain in chest Pain radiates to left arm Pain currently is 9 out of 10 on a pain scale. Quality of pain is described as pressure, Pain began 0300 this morning Is continuous. Cardiovascular: Patient's skin is warm and dry. Historical: - Allergies: 13:34 PENICILLINS; jl7 - Home Meds: 13:34 Advair Diskus 250-50 mcg/dose Inhl dsdv 1 puff 2 times per day [Active]; aspirin 81 mg jl7 Oral chew 1 tab once daily [Active]; atorvastatin 80 mg Oral tab 1 tab once daily [Active]; BRILINTA 90 mg Oral tab 1 tab 2 times per day [Active]; carvedilol 25 mg Oral tab 1 tab 2 times per day [Active]; hydralazine 50 mg Oral tab 1 tab Q8hrs [Active]; isosorbide mononitrate 60 mg Oral Tb24 1 tab once daily [Active]; Renagel 800 mg Oral tab 2 tabs 3 times per day [Active]; - PMHx: 13:34 Asthma; CHF; COPD; chronic kidney disease; CVA; Dialysis T-Th-Sat; Hepatitis; jl7 Hypertension; L arm paralysis; Myocardial infarction; triple bypass; - Immunization history:: Adult Immunizations unknown. - Social history:: Smoking status: Patient uses tobacco products, smokes one-half pack cigarettes per day. Screenin:37 Abuse screen: Denies threats or abuse. Denies injuries from another. Nutritional jl7 screening: No deficits noted. Tuberculosis screening: No symptoms or risk factors identified. Fall Risk IV access (20 points). Assessment: 13:50 General: Appears in no apparent distress. uncomfortable, Behavior is calm, cooperative, jl7 appropriate for age. Pain: Complains of pain in chest Pain radiates to left arm Pain currently is 9 out of 10 on a pain scale. Quality of pain is described as pressure, Pain began 0300 this morning Is continuous. Neuro: Level of Consciousness is awake, alert, obeys commands, Oriented to person, place, time, situation. Cardiovascular: Heart tones S1 S2 present Patient's skin is warm and dry. Respiratory: Airway is patent Respiratory effort is even, unlabored, Respiratory pattern is regular, symmetrical, Breath sounds are clear bilaterally. GI: No signs and/or symptoms were reported involving the gastrointestinal system. : No signs and/or symptoms were reported regarding the genitourinary system. EENT: No signs and/or symptoms were reported regarding the EENT system. Derm: Skin is dry, Skin is normal, Skin temperature is warm. Musculoskeletal: No signs and/or symptoms reported regarding the musculoskeletal system. 14:30 Reassessment: Patient and/or family updated on plan of care and expected duration. Pain jl7 level reassessed. Patient is alert, oriented x 3, equal unlabored respirations, skin warm/dry/pink. 15:25 Reassessment: Pt reports increased chest pain, rated 9/10, provider notified, see MAR jl7 for orders. 16:30 Reassessment: Patient and/or family updated on plan of care and expected duration. Pain jl7 level reassessed. Patient is alert, oriented x 3, equal unlabored respirations, skin warm/dry/pink. 17:08 Reassessment: Ok per to cancel 2nd troponin lab. Notified Carol in the ae1 outside lab via telephone. 18:00 Reassessment: Patient states feeling better. Patient states symptoms have improved. jl7 Vital Signs: 13:34 BP 112 / 69; Pulse 83; Resp 20 S; Pulse Ox 100% on R/A; Weight 71.67 kg (R); Height 5 jl7 ft. 8 in. (172.72 cm) (R); Pain 9/10; 13:34 Temp 98(O); jl7 14:37 BP 146 / 78; Pulse 68; Resp 16 S; Pulse Ox 100% on R/A; jl7 15:30 BP 140 / 74; Pulse 72; Resp 16; Pulse Ox 98% ; jl7 16:18 BP 143 / 82; Pulse 76; Resp 17; Pulse Ox 99% on R/A; ae1 17:00 BP 160 / 81; Pulse 77; Resp 16; Pulse Ox 98% ; jl7 17:30 BP 148 / 83; Pulse 71; Resp 16; Pulse Ox 98% ; jl7 17:50 BP 165 / 84; Pulse 73; Resp 16; Pulse Ox 98% ; jl7 13:34 Body Mass Index 24.02 (71.67 kg, 172.72 cm) jl7 ED Course: 13:23 Patient arrived in ED. jl7 13:28 Tank Ramos PA is PHCP. jr8 13:28 Efren Chicas MD is Attending Physician. jr8 13:32 Triage completed. jl7 13:34 Arm band placed on right wrist. jl7 13:40 Patient maintains SpO2 saturation greater than 95% on room air. jl7 13:41 EKG done, by [employer]. reviewed by Tank MOCTEZUMA. tc 13:45 Patient has correct armband on for positive identification. Placed in gown. Bed in low jl7 position. Call light in reach. Side rails up X2. school bus monitor on. Pulse ox on. NIBP on. 14:05 Initial lab(s) drawn, by ED staff, sent to lab. Inserted saline lock: 20 gauge in right jl7 antecubital area, using aseptic technique. Blood collected. Inserted via ultrasound by JOSE ELIAS Sarabia. 14:13 Bill Khan, SUMI is Primary Nurse. jl7 14:19 XRAY Chest (1 view) In Process Unspecified. EDMS 16:49 Padmini Worthy MD is Hospitalizing Provider. jr8 17:09 Jono Hauser MD is Referral Physician. jr8 17:09 EKG done, by [employer]. reviewed by Tank MOCTEZUMA Repeat EKG. at1 18:04 No provider procedures requiring assistance completed. IV discontinued, intact, iw bleeding controlled, No redness/swelling at site. Pressure dressing applied. Administered Medications: 13:45 Drug: Xopenex 1.25 mg Route: Inhalation; jl7 14:15 Follow up: Response: No adverse reaction; Marked relief of symptoms jl7 14:05 Drug: Zofran 4 mg Route: IVP; Site: right antecubital; jl7 14:30 Follow up: Response: No adverse reaction jl7 14:07 Drug: fentaNYL (PF) 50 mcg Route: IVP; Site: right antecubital; jl7 14:30 Follow up: Response: No adverse reaction; Pain is decreased jl7 15:27 Drug: fentaNYL (PF) 50 mcg Route: IVP; Site: right antecubital; jl7 16:00 Follow up: Response: No adverse reaction; Pain is decreased jl7 15:30 Drug: Magnesium Sulfate 2 grams Route: IVPB; Infused Over: 2 hrs; Site: right jl7 antecubital; 16:30 Follow up: Response: No adverse reaction; IV Status: Completed infusion jl7 Outcome: 16:49 Decision to Hospitalize by Provider. jr8 17:09 Discharge ordered by . jr8 18:07 Discharged to home ambulatory. jl7 18:07 Condition: stable 18:07 Discharge instructions given to patient, Instructed on discharge instructions, follow up and referral plans. Demonstrated understanding of instructions, follow-up care. 18:08 Patient left the ED. jl7 Signatures: Dispatcher [employer] EDJosephine Austin RN Tank Miller PA PA jr8 Radha carrillo, dry lumber grader EKG Tat1 Lucy Srivastava, dry lumber grader EKG Ttc Chacho Arnett RN RN ae1 Bill Khna RN RN jl7 Corrections: (The following items were deleted from the chart) 17:52 15:25 Reassessment: [facility] jl7
--- NOTE | 2017-09-21 17:11 | P.CNS ---
Date of Consult: 09/21/17 HPI: Patient 67-year-old gentleman who came into the hospital with chest discomfort. Pain was mainly in the sternal region. Patient has a history of coronary artery disease status post stent placement-approximately 10-15-and also bypass graft. Patient had a recent cardiac catheterization which did not require any intervention. Patient has been medically manage. Last night patient started having chest discomfort. Patient came into the hospital for further evaluation. In the emergency room patient had serial troponins which were negative. EKG was WNL no acute changes noted. When I evaluated the pt, pt was not having any chest pain and stated the medication helped. Pt stated he takes all his medication as prescribed however, upon calling [facility] pt has not filled his medication since Jun 2017. pt was educated on medication compliance Physical Exam: General: Alert, In no apparent distress, Oriented x3 HEENT: Atraumatic, PERRLA, Mucous membr. moist/pink, EOMI, Sclerae nonicteric Neck: Supple, 2+ carotid pulse no bruit, No LAD, Without JVD or thyroid abnormality Respiratory: Clear to auscultation bilaterally, Normal air movement Cardiovascular: Regular rate/rhythm, Normal S1 S2, No murmurs Gastrointestinal: Normal bowel sounds, Soft and benign, Non-distended, No tenderness, No rebound, No guarding Musculoskeletal: No clubbing, No swelling, No tenderness Integumentary: No rashes Neurological: Normal gait, Normal speech, Normal strength at 5/5 x4 extr, Normal tone, Sensation intact, Cranial nerves 3-12 intact, Normal affect Lymphatics: No axilla or inguinal lymphadenopathy Lab 09/21/17 16:46: Rapid Troponin I Cancelled 09/21/17 14:05: Rapid Troponin I < 0.03 09/21/17 14:05: PT 12.0, INR 1.02 09/21/17 14:05: WBC 4.9, RBC 3.52 L, Hgb 11.3 L, Hct 34.5 L, MCV 98.1, MCH 32.1 , MCHC 32.7, RDW 14.0, Plt Count 198, MPV 10.0, Neutrophils % 75.3 H, Lymphocytes % 16.7, Monocytes % 7.1, Eosinophils % 0.2, Basophils % 0.7, Absolute Neutrophils 3.7, Absolute Lymphocytes 0.8, Absolute Monocytes 0.3, Absolute Eosinophils 0.0, Absolute Basophils 0.0 09/21/17 14:05: B-Natriuretic Peptide 126 H 09/21/17 14:05: Sodium 137, Potassium 3.9, Chloride 105, Carbon Dioxide 23, BUN 36 H, Creatinine 4.69 H, Estimated GFR 15 L, Glucose 107, Calcium 8.1 L, Magnesium 1.2 L* D, Total Bilirubin 0.6, Direct Bilirubin 0.1, AST 30, ALT 28, Alkaline Phosphatase 51, Serum Total Protein 7.2, Albumin 3.8, Globulin 3.4, Albumin/Globulin Ratio 1.1 A/P 1.Stable angina - Per cardiology no further cardiac workup required on Mr. Parikh. Pt to start back on taking his Ranexa 1000 mg 1 p.o. b.i.d, Imdur, Coreg and Lipitor. Brilinta and ASA as well. Pt was educated on Medication compliance. Cardiology will see Pt in Clinic In AM. 2.History of coronary artery disease, status post coronary artery bypass graft, status post stent with patent stent, patent graft to the right coronary artery, patent left internal mammary artery to the left anterior descending artery by catheterization in June of 2017. 3.End-stage renal disease, on hemodialysis. 4.Hypertension. 5.Dyslipidemia, well controlled. 6.History of cardiovascular disease. 7.Chronic obstructive pulmonary disease. DISPO: Reccomend DC home with Cardiology f/u with Diagnosis of Stable angina now resolved.
--- NOTE | 2017-09-21 17:20 | EKG ---
Test Date: 2017-09-21 Test Time: 16:48:57 Charge Entry: CARMEN MEASUREMENT RESULTS: Intervals: Rate: 73 OH: 144 QRSD: 82 QT: 452 QTc: 497 [place]: P: 79 OH: 144 QRS: -10 T: 269 INTERPRETIVE STATEMENTS: Normal sinus rhythm ST & T wave abnormality, consider inferior ischemia Prolonged QT Abnormal ECG Compared to ECG 09/21/2017 13:32:30 No significant changes Electronically Signed On 09-21-17 17:19:46 CDT by Luis Eduardo Alanis
[2017-09-21 18:12] VITALS: TEMP 98
[2017-09-21 18:17] VITALS: O2SAT 98
[2017-09-21 18:20] VITALS: BP 165/84
== END 2017-09-21 18:08 | disposition home or self-care (01) ==
LOC: ER 13:19
DX: R07.9 Chest pain, unspecified (principal); I12.9 Hypertensive chronic kidney disease with stage 1 through stage 4 chronic kidney disease, or unspecified chronic kidney disease; N18.9 Chronic kidney disease, unspecified; I25.2 Old myocardial infarction; J44.9 Chronic obstructive pulmonary disease, unspecified; F17.210 Nicotine dependence, cigarettes, uncomplicated; Z79.82 Long term (current) use of aspirin; Z88.0 Allergy status to penicillin; Z99.2 Dependence on renal dialysis
CPT/HCPCS: 36415; 71045; 80048; 80076; 83735; 83880; 84484; 85025; 85610; 93005 ×2; 96365; 96375; 99285; J2405; J3010; J3475

== ENCOUNTER 2017-10-13 10:53 | Emergency (ER) | payer OTHER ==
--- NOTE | 2017-10-13 12:31 | RAD REPORT ---
EXAM DESCRIPTION: RAD - Shoulder Left 2 View - 10/13/2017 11:53 am CLINICAL HISTORY: Fall, shoulder pain COMPARISON: January 2017 TECHNIQUE: Internal and external rotation views of the left shoulder were obtained. FINDINGS: There is no fracture or dislocation. Mild AC joint degenerative changes present. There is spurring along the undersurface of the acromion similar to the comparison. Acromial humeral joint spa ce is normal with no abnormal soft tissue calcification. No pathologic bone process. Ribs and parench yma of the upper chest show no acute findings. CABG surgical changes are evident only partially image d. IMPRESSION: Negative two-view left shoulder examination for acute finding. AC joint and acromion degenerative changes are stable from January 2016.
--- NOTE | 2017-10-13 12:33 | ER ---
Nurse's Notes [facility] Name: Julien Parikh Age: 67 yrs Sex: Male : 1950 Arrival Date: 10/13/2017 Time: 10:58 Bed 7 Private MD: KINA MCCLURE Diagnosis: Contusion of left shoulder Presentation: 10/13 11:06 Presenting complaint: Patient states: three things. I fell getting out of my shower ch this morning and my L shoulder hurts. second thing, I have been having and asthma attack for the past 2 days, I think its because I smoke. third thing, my Dialysis clinic told me they wont see me since I missed two days unless I go to the ER. Transition of care: patient was not received from another setting of care. Onset of symptoms was October 13, 2017 at 06:30. Risk Assessment: Do you want to hurt yourself or someone else? Patient reports no desire to harm self or others. Initial Sepsis Screen: Does the patient meet any 2 criteria? No. Patient's initial sepsis screen is negative. Does the patient have a suspected source of infection? No. Patient's initial sepsis screen is negative. Care prior to arrival: None. 11:06 Method Of Arrival: Ambulatory 11:06 Acuity: PERRI 3 ch Triage Assessment: 11:10 General: Appears in no apparent distress. comfortable, Behavior is calm, cooperative, ch appropriate for age. Pain: Complains of pain in anterior aspect of left shoulder and posterior aspect of left shoulder. Musculoskeletal: Capillary refill < 3 seconds, in bilateral fingers. toes. Historical: - Allergies: 11:10 PENICILLINS; ch - Home Meds: 11:10 Advair Diskus 250-50 mcg/dose Inhl dsdv 1 puff 2 times per day [Active]; aspirin 81 mg ch Oral chew 1 tab once daily [Active]; atorvastatin 80 mg Oral tab 1 tab once daily [Active]; BRILINTA 90 mg Oral tab 1 tab 2 times per day [Active]; carvedilol 25 mg Oral tab 1 tab 2 times per day [Active]; hydralazine 50 mg Oral tab 1 tab Q8hrs [Active]; isosorbide mononitrate 60 mg Oral Tb24 1 tab once daily [Active]; Renagel 800 mg Oral tab 2 tabs 3 times per day [Active]; - PMHx: 11:10 Asthma; CHF; chronic kidney disease; COPD; CVA; Dialysis T-Th-Sat; Hepatitis; ch Hypertension; L arm paralysis; Myocardial infarction; triple bypass; ESRD; L sided weakness from CVA; - PSHx: 11:10 triple bypass; dialysis port R chest wall; ch - Immunization history:: Adult Immunizations up to date. - Social history:: Smoking status: Patient uses tobacco products, smokes one-half pack cigarettes per day, Patient/guardian denies using alcohol, street drugs. - Ebola Screening: : Patient negative for fever greater than or equal to 101.5 degrees Fahrenheit, and additional compatible Ebola Virus Disease symptoms Patient denies exposure to infectious person Patient denies travel to an Ebola-affected area in the 21 days before illness onset No symptoms or risks identified at this time. Screenin:46 Abuse screen: Denies threats or abuse. Denies injuries from another. Nutritional sv screening: No deficits noted. Tuberculosis screening: No symptoms or risk factors identified. Fall Risk None identified. Assessment: 11:40 Reassessment: xray at bedside. sg Vital Signs: 11:10 BP 161 / 86; Pulse 82; Resp 26; Temp 98.8; Pulse Ox 96% on R/A; Weight 68.49 kg; Height ch 5 ft. 8 in. (172.72 cm); Pain 10/10; 11:10 Body Mass Index 22.96 (68.49 kg, 172.72 cm) ch ED Course: 10:58 Patient arrived in ED. sb2 10:59 KINA MCCLURE is Private Physician. sb2 11:08 Triage completed. ch 11:10 Arm band placed on left wrist. Patient placed in an exam room, on a stretcher, on pulse ch oximetry. 11:12 Tank Ramos PA is PHCP. jr8 11:13 Sean Lloyd MD is Attending Physician. jr8 11:45 Wood Brock, RN is Primary Nurse. sg 11:49 X-ray completed. Portable x-ray completed in exam room. Patient tolerated procedure jb2 well. 11:51 XRAY Shoulder LEFT 2 view In Process Unspecified. EDMS 12:33 Wood Umanzor MD is Referral Physician. jr8 12:46 Patient has correct armband on for positive identification. sv 12:46 No provider procedures requiring assistance completed. Patient did not have IV access sv during this emergency room visit. Administered Medications: 12:40 Drug: Crandon 10 mg-325 mg 1 tabs Route: PO; sv 12:45 Follow up: Response: No adverse reaction; Medication administered at discharge. sv Outcome: 12:33 Discharge ordered by MD. salomon 12:46 Discharged to home ambulatory, Sister driving pt home. sv 12:46 Condition: stable 12:46 Discharge instructions given to patient, Instructed on discharge instructions, follow up and referral plans. Demonstrated understanding of instructions, follow-up care. 12:46 Patient left the ED. sv Signatures: Dispatcher [employer] EDMS Yissel Greenfield RN RN ch Verde, Stephanie, RN RN sv Gay, Steven, RN RN sg Buechter, Jesse jb2 Roszak, Josh, PA PA jrMerry Duckworth sb2
--- NOTE | 2017-10-13 12:33 | EDPHYS ---
Physician Documentation [facility] Name: Julien Parikh Age: 67 yrs Sex: Male : 1950 Arrival Date: 10/13/2017 Time: 10:58 Bed 7 Private MD: KINA MCCLURE ED Physician Sean Lloyd HPI: 10/13 12:01 This 67 yrs old Black Male presents to ER via Ambulatory with complaints of Arm Injury. jr8 12:01 The patient or guardian complains of decreased range of motion, pain, tenderness. The jr8 complaints affect the left shoulder. Context: The problem was sustained at home, resulted from a fall, while walking. Onset: The symptoms/episode began/occurred acutely, this morning. Modifying factors: The symptoms are alleviated by nothing. the symptoms are aggravated by movement, bending arm. Associated signs and symptoms: The patient has no apparent associated signs or symptoms. Severity of symptoms: At their worst the symptoms were moderate, in the emergency department the symptoms are unchanged. The patient has not experienced similar symptoms in the past. The patient has not recently seen a physician. Patient stated that he was walking from bathroom back to bedroom and slipped causing him to hit left shoulder region. Pain with decreased ROM since incident . Historical: - Allergies: 11:10 PENICILLINS; ch - Home Meds: 11:10 Advair Diskus 250-50 mcg/dose Inhl dsdv 1 puff 2 times per day [Active]; aspirin 81 mg ch Oral chew 1 tab once daily [Active]; atorvastatin 80 mg Oral tab 1 tab once daily [Active]; BRILINTA 90 mg Oral tab 1 tab 2 times per day [Active]; carvedilol 25 mg Oral tab 1 tab 2 times per day [Active]; hydralazine 50 mg Oral tab 1 tab Q8hrs [Active]; isosorbide mononitrate 60 mg Oral Tb24 1 tab once daily [Active]; Renagel 800 mg Oral tab 2 tabs 3 times per day [Active]; - PMHx: 11:10 Asthma; CHF; chronic kidney disease; COPD; CVA; Dialysis T-Th-Sat; Hepatitis; ch Hypertension; L arm paralysis; Myocardial infarction; triple bypass; ESRD; L sided weakness from CVA; - PSHx: 11:10 triple bypass; dialysis port R chest wall; ch - Immunization history:: Adult Immunizations up to date. - Social history:: Smoking status: Patient uses tobacco products, smokes one-half pack cigarettes per day, Patient/guardian denies using alcohol, street drugs. - Ebola Screening: : Patient negative for fever greater than or equal to 101.5 degrees Fahrenheit, and additional compatible Ebola Virus Disease symptoms Patient denies exposure to infectious person Patient denies travel to an Ebola-affected area in the 21 days before illness onset No symptoms or risks identified at this time. ROS: 12:01 Eyes: Negative for injury, pain, redness, and discharge, ENT: Negative for injury, jr8 pain, and discharge, Neck: Negative for injury, pain, and swelling, Cardiovascular: Negative for chest pain, palpitations, and edema, Respiratory: Negative for shortness of breath, cough, wheezing, and pleuritic chest pain, Abdomen/GI: Negative for abdominal pain, nausea, vomiting, diarrhea, and constipation, Back: Negative for injury and pain, Skin: Negative for injury, rash, and discoloration, Neuro: Negative for headache, weakness, numbness, tingling, and seizure. 12:01 MS/extremity: Positive for decreased range of motion, pain, tenderness, of the left arm. Exam: 12:01 Head/Face: Normocephalic, atraumatic. Eyes: Pupils equal round and reactive to light, jr8 extra-ocular motions intact. Lids and lashes normal. Conjunctiva and sclera are non-icteric and not injected. Cornea within normal limits. Periorbital areas with no swelling, redness, or edema. ENT: Nares patent. No nasal discharge, no septal abnormalities noted. Tympanic membranes are normal and external auditory canals are clear. Oropharynx with no redness, swelling, or masses, exudates, or evidence of obstruction, uvula midline. Mucous membranes moist. Neck: Trachea midline, no thyromegaly or masses palpated, and no cervical lymphadenopathy. Supple, full range of motion without nuchal rigidity, or vertebral point tenderness. No Meningismus. Chest/axilla: Normal chest wall appearance and motion. Nontender with no deformity. No lesions are appreciated. Cardiovascular: Regular rate and rhythm with a normal S1 and S2. No gallops, murmurs, or rubs. Normal PMI, no JVD. No pulse deficits. Respiratory: Lungs have equal breath sounds bilaterally, clear to auscultation and percussion. No rales, rhonchi or wheezes noted. No increased work of breathing, no retractions or nasal flaring. Abdomen/GI: Soft, non-tender, with normal bowel sounds. No distension or tympany. No guarding or rebound. No evidence of tenderness throughout. Back: No spinal tenderness. No costovertebral tenderness. Full range of motion. Skin: Warm, dry with normal turgor. Normal color with no rashes, no lesions, and no evidence of cellulitis. Neuro: Awake and alert, GCS 15, oriented to person, place, time, and situation. Cranial nerves II-XII grossly intact. Motor strength 5/5 in all extremities. Sensory grossly intact. Cerebellar exam normal. Normal gait. 12:01 Musculoskeletal/extremity: Extremities: grossly normal except: noted in the left shoulder: decreased ROM, pain, tenderness, ROM: limited active range of motion, limited passive range of motion, limited active range of motion due to pain, limited passive range of motion due to pain, Circulation is intact in all extremities. Sensation intact. Vital Signs: 11:10 BP 161 / 86; Pulse 82; Resp 26; Temp 98.8; Pulse Ox 96% on R/A; Weight 68.49 kg; Height ch 5 ft. 8 in. (172.72 cm); Pain 10/10; 11:10 Body Mass Index 22.96 (68.49 kg, 172.72 cm) ch MDM: 11:13 Patient medically screened. jr8 12:32 Data reviewed: vital signs, nurses notes, radiologic studies, plain films. Data jr8 interpreted: Pulse oximetry: on room air is 96 %. Interpretation: normal. Counseling: I had a detailed discussion with the patient and/or guardian regarding: the historical points, exam findings, and any diagnostic results supporting the discharge/admit diagnosis, radiology results, the need for outpatient follow up, a orthopedic surgeon, to return to the emergency department if symptoms worsen or persist or if there are any questions or concerns that arise at home. ED course: Patient in sling. Will discharge home to f/u with orthopedic. 10/13 11:26 Order name: XRAY Shoulder LEFT 2 view; Complete Time: 12:32 jr8 Administered Medications: 12:40 Drug: Poca 10 mg-325 mg 1 tabs Route: PO; sv 12:45 Follow up: Response: No adverse reaction; Medication administered at discharge. sv Disposition: 10/13/17 12:33 Discharged to Home. Impression: Contusion of left shoulder. - Condition is Stable. - Discharge Instructions: Shoulder Pain. - Medication Reconciliation Form, Thank You Letter, Antibiotic Education, Prescription Opioid Use form. - Follow up: Wood Umanzor MD; When: 5 - 6 days; Reason: Recheck today's complaints, Continuance of care, Re-evaluation by your physician. - Problem is new. - Symptoms have improved. Addendum: 10/21/2017 10:58 Co-signature as Attending Physician, Sean Lloyd MD. g s Signatures: Dispatcher [employer] EDMS Yissel Greenfield, RN RN Carol Camacho RN RN Tank Harkins PA PA jr8 Sean Lloyd MD MD Corrections: (The following items were deleted from the chart) 10/13 12:46 12:33 10/13/2017 12:33 Discharged to Home. Impression: Contusion of left shoulder. sv Condition is Stable. Forms are Medication Reconciliation Form, Thank You Letter, Antibiotic Education, Prescription Opioid Use. Follow up: Wood Umanzor; When: 5 - 6 days; Reason: Recheck today's complaints, Continuance of care, Re-evaluation by your physician. Problem is new. Symptoms have improved. jr8
[2017-10-13] MEDS ORDERED: HYDROCODONE/APAP 10/325 TAB ONE (12:43)
[2017-10-13 12:59] VITALS: BP 161/86; TEMP 98.8; O2SAT 96
== END 2017-10-13 12:46 | disposition home or self-care (01) ==
LOC: ER 10:53
DX: S40.012A Contusion of left shoulder, initial encounter (principal); W18.30XA Fall on same level, unspecified, initial encounter; Y93.01 Activity, walking, marching and hiking; Y92.008 Other place in unspecified non-institutional (private) residence as the place of occurrence of the external cause; Z79.82 Long term (current) use of aspirin; Z88.0 Allergy status to penicillin; Z99.2 Dependence on renal dialysis; I12.0 Hypertensive chronic kidney disease with stage 5 chronic kidney disease or end stage renal disease; N18.6 End stage renal disease; I50.9 Heart failure, unspecified; I25.2 Old myocardial infarction; F17.210 Nicotine dependence, cigarettes, uncomplicated
CPT/HCPCS: 99283

== ENCOUNTER 2017-10-26 09:00 | Emergency (ER) | payer OTHER ==
[2017-10-26] MEDS ORDERED: ACETAMINOPHEN 500 MG TAB ONE (09:30)
[2017-10-26 09:57] LABS: Absolute Monocytes 0.4 K/uL (0.1-1.3); Absolute Neutrophil 2.8 K/uL (1.8-8.0); Basophils % 0.8 % (0-1.3); Eosinophils % 3.6 % (0-4.4); Hematocrit 33.1 % (39.6-49.0); Lymphocytes % 22.8 % (15.3-44.8); MCH 32.9 pg (27.0-35.0); MCV 99.1 fL (80-100); MPV 9.8 fL (7.6-11.3); Monocytes % 9.8 % (3.3-12.3); RBC Red Blood Cell Count 3.34 M/uL (4.33-5.43)
[2017-10-26 09:58] LABS: Protime INR 0.98
--- NOTE | 2017-10-26 10:04 | RAD REPORT ---
EXAM DESCRIPTION: CT - Head Brain Wo Cont - 10/26/2017 9:52 am CLINICAL HISTORY: Fall, head injury, left-sided weakness, history of stroke 1 year earlier COMPARISON: CT head May 2014 TECHNIQUE: Axial 5 mm thick images of the head were obtained without IV contrast. All CT scans are performed using dose optimization technique as appropriate and may include automated exposure control or mA/KV adjustment according to patient size. FINDINGS: No intracranial hemorrhage, mass, edema or shift of mid-line structures. No acute cortical based infarction. No cortical edema or sulcal effacement. Moderately large area of right frontal lob e encephalomalacia present matching the old CVA history. Patient has underlying moderate atrophy and chronic ischemic change. Arterial and physiologic calcifications are present. No abnormal extra-axial fluid collections. Ventricles are in proportion to volume loss changes. Mastoid air cells and visualized portions of the paranasal sinuses are clear. No acute bony findings. IMPRESSION: No hemorrhage or acute intracranial finding. Moderate atrophy and chronic ischemic changes are present along with moderately large old right front al CVA changes.
[2017-10-26 10:23] LABS: Albumin 3.9 g/dL (3.4-5.0); Bilirubin Direct 0.2 mg/dL (0-0.2); Bilirubin Total 0.6 mg/dL (0.2-1.0); Potassium 3.9 mmol/L (3.5-5.1); Protein, Total 7.7 g/dL (6.4-8.2)
[2017-10-26 10:26] LABS: Magnesium 1.1 mg/dL (1.8-2.4)
[2017-10-26] MEDS ORDERED: MAGNESIUM SULFATE 1 gm IVPB 1 GM/100 ML BAG IV ONE (10:35)
--- NOTE | 2017-10-26 10:52 | RAD REPORT ---
EXAM DESCRIPTION: RAD - Chest Single View - 10/26/2017 9:53 am CLINICAL HISTORY: Fall, chest pain, shortness of breath COMPARISON: September 21, 2017 TECHNIQUE: AP portable chest image was obtained [id number] hours . FINDINGS: Lungs are clear. Heart and vasculature are normal. No measurable pleural effusion and no p neumothorax. No gross bony abnormality seen. No acute aortic finding. Sternotomy wires and CABG [place] changes noted. Loop recorder is airways. Patient has a right-sided double-lumen dialysis catheter in place. IMPRESSION: No acute cardiopulmonary process. No significant change from comparison.
--- NOTE | 2017-10-26 10:54 | RAD REPORT ---
EXAM DESCRIPTION: RAD - Shoulder Left 2 View - 10/26/2017 9:52 am CLINICAL HISTORY: Fall, left shoulder pain COMPARISON: None. TECHNIQUE: Internal and external rotation views of the left shoulder were obtained. FINDINGS: There is no fracture or dislocation. No AC joint separation. There are minimal AC joint de generative changes and minimal degenerative change along the undersurface of the acromion. No bony sp urring. Acromial humeral joint space is normal range. No abnormal soft tissue calcifications. Scapula as imaged is normal. Ribs and parenchyma of the upper chest also normal. IMPRESSION: Left shoulder degenerative changes are present but no fracture or acute finding identifi able.
[2017-10-26] MEDS ORDERED: FENTANYL CITR 100 MCG/2 ML ONE (11:07)
[2017-10-26] MEDS ORDERED: ASPIRIN 81 MG CHEWABLE TABLET ONE (12:25)
--- NOTE | 2017-10-26 12:26 | EDPHYS ---
Physician Documentation [facility] Name: Julien Parikh Age: 67 yrs Sex: Male : 1950 Arrival Date: 10/26/2017 Time: 09:02 Bed 18 Private MD: KINA MCCLURE ED Physician Henrry Foley HPI: 10/26 09:23 This 67 yrs old Black Male presents to ER via Ambulatory with complaints of Fall Injury wa - ARM. 09:23 Details of fall: The patient fell from an upright position, while walking. Onset: The wa symptoms/episode began/occurred today. Associated injuries: The patient sustained L shoulder pain. Severity of symptoms: At their worst the symptoms were moderate, in the emergency department the symptoms are unchanged. The patient has not experienced similar symptoms in the past. The patient has not recently seen a physician. h/o CVA. c/o generalized weakness when awoke this AM. Fell due to weakness. c/o L shoulder pain. denies JACQUES, dizziness, CP, or SOB. Historical: - Allergies: 09:11 PENICILLINS; ss - Home Meds: 13:14 Advair Diskus 250-50 mcg/dose Inhl dsdv 1 puff 2 times per day [Active]; aspirin 81 mg sv Oral chew 1 tab once daily [Active]; hydralazine 50 mg Oral tab 2 tab 2 times per day [Active]; Norvasc 5 mg Oral tab 1 tab once daily [Active]; Renvela 800 mg oral tab 2 tabs 3 times per day [Active]; atorvastatin 80 mg Oral tab 1 tab nightly [Active]; metoprolol tartrate 25 mg Oral tab 2 tabs 2 times per day [Active]; BRILINTA 90 mg Oral tab 1 tab 2 times per day [Active]; Ranexa 1,000 mg oral Tb12 1 tab 2 times per day [Active]; isosorbide mononitrate 60 mg Oral Tb24 1 tab once daily [Active]; - PMHx: 09:11 Asthma; CVA; ESRD; L arm paralysis; COPD; Hypertension; Hepatitis; L sided weakness ss from CVA; Dialysis T-Th-Sat; chronic kidney disease; Myocardial infarction; CHF; triple bypass; - PSHx: 09:11 triple bypass; dialysis port R chest wall; ss - Immunization history:: Adult Immunizations up to date. - Social history:: Smoking status: Patient uses tobacco products, smokes one pack cigarettes per day. - Ebola Screening: : Patient denies exposure to infectious person Patient denies travel to an Ebola-affected area in the 21 days before illness onset. - Family history:: Father has/had hypertension. - Hospitalizations: : No recent hospitalization is reported. ROS: 09:25 Constitutional: Negative for fever, chills, and weight loss, Eyes: Negative for injury, wa pain, redness, and discharge, ENT: Negative for injury, pain, and discharge, Neck: Negative for injury, pain, and swelling, Cardiovascular: Negative for chest pain, palpitations, and edema, Respiratory: Negative for shortness of breath, cough, wheezing, and pleuritic chest pain, Abdomen/GI: Negative for abdominal pain, nausea, vomiting, diarrhea, and constipation, Back: Negative for injury and pain, : Negative for injury, bleeding, discharge, and swelling, Skin: Negative for injury, rash, and discoloration, Psych: Negative for depression, anxiety, suicide ideation, homicidal ideation, and hallucinations. 09:25 MS/extremity: Positive for pain, tenderness, of the left shoulder. 09:25 Neuro: Positive for weakness, Negative for altered mental status, dizziness, gait disturbance, headache, speech changes. Exam: 09:26 Constitutional: This is a well developed, well nourished patient who is awake, alert, wa and in no acute distress. Head/Face: Normocephalic, atraumatic. Eyes: Pupils equal round and reactive to light, extra-ocular motions intact. Lids and lashes normal. Conjunctiva and sclera are non-icteric and not injected. Cornea within normal limits. Periorbital areas with no swelling, redness, or edema. ENT: Nares patent. No nasal discharge, no septal abnormalities noted. Tympanic membranes are normal and external auditory canals are clear. Oropharynx with no redness, swelling, or masses, exudates, or evidence of obstruction, uvula midline. Mucous membranes moist. Neck: Trachea midline, no thyromegaly or masses palpated, and no cervical lymphadenopathy. Supple, full range of motion without nuchal rigidity, or vertebral point tenderness. No Meningismus. Cardiovascular: Regular rate and rhythm with a normal S1 and S2. No gallops, murmurs, or rubs. Normal PMI, no JVD. No pulse deficits. Respiratory: Lungs have equal breath sounds bilaterally, clear to auscultation and percussion. No rales, rhonchi or wheezes noted. No increased work of breathing, no retractions or nasal flaring. Abdomen/GI: Soft, non-tender, with normal bowel sounds. No distension or tympany. No guarding or rebound. No evidence of tenderness throughout. Back: No spinal tenderness. No costovertebral tenderness. Full range of motion. Skin: Warm, dry with normal turgor. Normal color with no rashes, no lesions, and no evidence of cellulitis. Psych: Awake, alert, with orientation to person, place and time. Behavior, mood, and affect are within normal limits. 09:26 Musculoskeletal/extremity: Extremities: noted in the knob of L shoulder: pain, tenderness. 09:26 Neuro: Orientation: is normal, Mentation: is normal, appropriate for stated age, Memory: is normal, Cranial nerves: grossly normal, noted L UE residual weakness. Vital Signs: 09:11 BP 155 / 93; Pulse 93; Resp 16; Temp 97.8(O); Pulse Ox 98% on R/A; Weight 68.95 kg; ss Height 5 ft. 8 in. (172.72 cm); Pain 9/10; 10:06 BP 184 / 95; Pulse 77; Resp 18; Pulse Ox 100% on R/A; sv 11:00 BP 179 / 91; Pulse 77; Resp 18; Pulse Ox 100% ; sv 12:55 BP 192 / 93; Pulse 78; Resp 18; Pulse Ox 100% ; sv 13:27 BP 184 / 98; Pulse 69; Resp 18; Pulse Ox 98% ; sv 14:43 BP 184 / 98; Pulse 70; Resp 18; Pulse Ox 98% ; sv 09:11 Body Mass Index 23.11 (68.95 kg, 172.72 cm) ss MDM: 09:08 Patient medically screened. wa 12:18 Differential diagnosis: shoulder injury. r/o fx. weakness. r/o neuro vs cardio reason wa for weakness. pt w/ multiple risks.. Data reviewed: vital signs, nurses notes, lab test result(s), EKG, radiologic studies. Test interpretation: by ED physician or midlevel provider: labs noted for anemia. low Mg. elevated troponin of 0.14. past troponins have been negative. Test interpretation: by ED physician or midlevel provider: EKG: HR 80. noted inferior-lateral T wave inversions. consider ischemia. CXR negative. . Physician consultation: Jesus Cho DO. Admission orders: after a detailed discussion of the patient's condition and case, the admit orders are written by me. 12:24 Test interpretation: by ED physician or midlevel provider: L shoulder xray: no acute wa fracture. 14:56 ED course: did advise Dr. Worthy to leave a note regarding this patient's dispo as she wa is the one who spoke with the software design manager. 10/26 09:22 Order name: Basic Metabolic Panel; Complete Time: 10:27 wi 10/26 09:22 Order name: CBC with Diff; Complete Time: 10:58 wi 10/26 09:22 Order name: LFT's; Complete Time: 10:58 wi 10/26 09:22 Order name: Magnesium; Complete Time: 10:58 wi 10/26 09:22 Order name: PT-INR; Complete Time: 10:58 wi 10/26 09:22 Order name: Troponin (emerg Dept Use Only); Complete Time: 10:58 wi 10/26 09:22 Order name: XRAY Chest (1 view); Complete Time: 10:58 wi 10/26 09:22 Order name: CT Head Brain wo Cont; Complete Time: 10:59 wi 10/26 09:22 Order name: Shoulder Left (2 View) XRAY; Complete Time: 10:58 wi 10/26 12:30 Order name: Troponin (Emerg Dept Use Only) [facility] 10/26 09:22 Order name: Cardiac monitoring; Complete Time: 12:29 wi 10/26 09:22 Order name: EKG - Nurse/Tech; Complete Time: 09:48 wi 10/26 09:22 Order name: IV Saline Lock; Complete Time: 09:49 wi 10/26 09:22 Order name: Labs collected and sent; Complete Time: 09:49 wi 10/26 09:22 Order name: O2 Sat Monitoring; Complete Time: 09:49 wi 10/26 10:48 Order name: EKG Electrocardiogram; Complete Time: 11:56 [facility] 10/26 11:04 Order name: Sling: L upper extremity; Complete Time: 12:28 wi Administered Medications: 09:42 Drug: Tylenol 1000 mg Route: PO; sv 10:00 Follow up: Response: No adverse reaction sv 10:35 Drug: Magnesium Sulfate 1 grams Route: IVPB; Infused Over: 1 hrs; Site: right forearm; sv 11:35 Follow up: Response: No adverse reaction; IV Status: Completed infusion; IV Intake: sv 100ml 11:05 Drug: fentaNYL (PF) 75 mcg Route: IVP; Site: right forearm; sv 11:55 Follow up: Response: No adverse reaction sv 12:27 Drug: Aspirin Chewable Tablet 324 mg Route: PO; sv 12:30 Follow up: Response: No adverse reaction sv 13:27 Drug: HydrALAZINE 25 mg Route: PO; sv 15:04 Follow up: Response: No adverse reaction sv 13:27 Drug: amLODIPine 5 mg Route: PO; sv 15:04 Follow up: Response: No adverse reaction sv 13:27 Drug: Metoprolol 50 mg Route: PO; sv 15:03 Follow up: Response: No adverse reaction sv Disposition: 10/26/17 14:49 Discharged to Home. Impression: Elevated Heart enzymes. , syncope, Fall (on) (from) unspecified stairs and steps. - Condition is Stable. - Prescriptions for Colcord 5- 325 mg Oral Tablet - take 1 tablet by ORAL route every 6 hours As needed; 20 tablet. - Medication Reconciliation Form, Thank You Letter, Antibiotic Education, Prescription Opioid Use form. - Follow up: Calvin Rooney MD; When: Today; Reason: Re-evaluation by your physician. - Problem is new. - Symptoms have improved. - Notes: per Dr. Worthy, who spoke to youe carudiologist, Dr. Rooney would like to see you today. you are getting discharged to follow up with his office today. return here for any worsening concerns you may have Signatures: Dispatcher [employer] Carol Sarkar RN RN sv Smirch, Shelby, RN RN Henrry Foley MD MD wi Corrections: (The following items were deleted from the chart) 12:41 09:22 Urine Dipstick-Ancillary ordered. wi sv 13:12 12:25 Hospitalization Ordered by Jesus Cho DO for Inpatient Admission. Preliminary wi diagnosis is Weakness; elevated troponin; L shoulder strain post fall. Bed requested for Telemetry/MedSurg (Inpatient). Status is Inpatient Admission. Condition is Stable. Problem is new. Symptoms have improved. UTI on Admission? No. wi 14:47 13:12 10/26/2017 12:25 Hospitalization Ordered by Padmini Worthy MD for Inpatient wi Admission. Preliminary diagnosis is Weakness; elevated troponin; L shoulder strain post fall. Bed requested for Telemetry/MedSurg (Inpatient). Status is Inpatient Admission. Condition is Stable. Problem is new. Symptoms have improved. UTI on Admission? No. wi 14:47 14:47 10/26/2017 12:25 Hospitalization Ordered by Padmini Worthy MD for Inpatient wi Admission. Preliminary diagnosis is Weakness; elevated troponin; L shoulder strain post fall. Bed requested for Telemetry/MedSurg (Inpatient). Status is Inpatient Admission. Condition is Stable. Problem is new. Symptoms have improved. UTI on Admission? No. wi 14:56 14:49 10/26/2017 14:49 Discharged to Home. Impression: Elevated Heart enzymes. ; wa syncope. Condition is Stable. Forms are Medication Reconciliation Form, Thank You Letter, Antibiotic Education, Prescription Opioid Use. Follow up: Calvin Rooney; When: Today; Reason: Re-evaluation by your physician. Problem is new. Symptoms have improved. wi 15:04 14:56 10/26/2017 14:49 Discharged to Home. Impression: Elevated Heart enzymes. ; sv syncope; Fall (on) (from) unspecified stairs and steps. Condition is Stable. Prescriptions for Colcord 5-325 mg Oral Tablet - take 1 tablet by ORAL route every 6 hours As needed; 20 tablet. and Forms are Medication Reconciliation Form, Thank You Letter, Antibiotic Education, Prescription Opioid Use. Follow up: Calvin Rooney; When: Today; Reason: Re-evaluation by your physician. Problem is new. Symptoms have improved. wi
--- NOTE | 2017-10-26 12:26 | ER ---
Nurse's Notes [facility] Name: Julien Parikh Age: 67 yrs Sex: Male : 1950 Arrival Date: 10/26/2017 Time: 09:02 Bed 18 Private MD: KINA MCCLURE Diagnosis: Elevated Heart enzymes. ;syncope;Fall (on) (from) unspecified stairs and steps Presentation: 10/26 09:09 Presenting complaint: Patient states: L shoulder pain after tripping and falling when ss getting out of the shower this morning. Pt has L sided weakness after a previous stroke last years. Transition of care: patient was not received from another setting of care. Onset of symptoms was October 26, 2017. Risk Assessment: Do you want to hurt yourself or someone else? Patient reports no desire to harm self or others. Initial Sepsis Screen: Does the patient meet any 2 criteria? No. Patient's initial sepsis screen is negative. Does the patient have a suspected source of infection? No. Patient's initial sepsis screen is negative. Care prior to arrival: None. 09:09 Method Of Arrival: Ambulatory ss 09:09 Acuity: PERRI 4 ss Historical: - Allergies: 09:11 PENICILLINS; ss - Home Meds: 13:14 Advair Diskus 250-50 mcg/dose Inhl dsdv 1 puff 2 times per day [Active]; aspirin 81 mg sv Oral chew 1 tab once daily [Active]; hydralazine 50 mg Oral tab 2 tab 2 times per day [Active]; Norvasc 5 mg Oral tab 1 tab once daily [Active]; Renvela 800 mg oral tab 2 tabs 3 times per day [Active]; atorvastatin 80 mg Oral tab 1 tab nightly [Active]; metoprolol tartrate 25 mg Oral tab 2 tabs 2 times per day [Active]; BRILINTA 90 mg Oral tab 1 tab 2 times per day [Active]; Ranexa 1,000 mg oral Tb12 1 tab 2 times per day [Active]; isosorbide mononitrate 60 mg Oral Tb24 1 tab once daily [Active]; - PMHx: 09:11 Asthma; CVA; ESRD; L arm paralysis; COPD; Hypertension; Hepatitis; L sided weakness ss from CVA; Dialysis T-Th-Sat; chronic kidney disease; Myocardial infarction; CHF; triple bypass; - PSHx: 09:11 triple bypass; dialysis port R chest wall; ss - Immunization history:: Adult Immunizations up to date. - Social history:: Smoking status: Patient uses tobacco products, smokes one pack cigarettes per day. - Ebola Screening: : Patient denies exposure to infectious person Patient denies travel to an Ebola-affected area in the 21 days before illness onset. - Family history:: Father has/had hypertension. - Hospitalizations: : No recent hospitalization is reported. Screenin:10 Abuse screen: Denies threats or abuse. Denies injuries from another. Nutritional sv screening: No deficits noted. Tuberculosis screening: No symptoms or risk factors identified. Fall Risk None identified. Assessment: 09:09 General: Appears in no apparent distress. comfortable, Behavior is calm, cooperative, sv appropriate for age. Pain: Complains of pain in anterior aspect of left shoulder Is intermittent, Aggravated by increased activity. Neuro: Level of Consciousness is awake, alert, obeys commands, Oriented to person, place, time, situation, Gait is steady. Respiratory: Respiratory effort is even, unlabored, Respiratory pattern is regular, symmetrical. Derm: Skin is normal. Musculoskeletal: Range of motion: limited in left shoulder. 10:26 Reassessment: Dr. Foley notified of critical lab value, Mg 1.1. ss 11:30 Reassessment: Patient appears in no apparent distress at this time. No changes from sv previously documented assessment. Patient and/or family updated on plan of care and expected duration. Pain level reassessed. Patient is alert, oriented x 3, equal unlabored respirations, skin warm/dry/pink. 12:40 Reassessment: Patient appears in no apparent distress at this time. No changes from sv previously documented assessment. Patient and/or family updated on plan of care and expected duration. Pain level reassessed. Patient is alert, oriented x 3, equal unlabored respirations, skin warm/dry/pink. 13:14 Reassessment: Patient appears in no apparent distress at this time. No changes from sv previously documented assessment. Patient and/or family updated on plan of care and expected duration. Pain level reassessed. Patient is alert, oriented x 3, equal unlabored respirations, skin warm/dry/pink. 14:35 Reassessment: Dr Foley spoke with Dr Worthy. sv 14:42 Reassessment: Patient appears in no apparent distress at this time. Patient and/or sv family updated on plan of care and expected duration. Pain level reassessed. Patient is alert, oriented x 3, equal unlabored respirations, skin warm/dry/pink. 15:01 Reassessment: Patient appears in no apparent distress at this time. Patient and/or sv family updated on plan of care and expected duration. Pain level reassessed. Patient is alert, oriented x 3, equal unlabored respirations, skin warm/dry/pink. Pt's sister here to take him home. Pt is going to follow up with Dr Rooney. Vital Signs: 09:11 BP 155 / 93; Pulse 93; Resp 16; Temp 97.8(O); Pulse Ox 98% on R/A; Weight 68.95 kg; ss Height 5 ft. 8 in. (172.72 cm); Pain 9/10; 10:06 BP 184 / 95; Pulse 77; Resp 18; Pulse Ox 100% on R/A; sv 11:00 BP 179 / 91; Pulse 77; Resp 18; Pulse Ox 100% ; sv 12:55 BP 192 / 93; Pulse 78; Resp 18; Pulse Ox 100% ; sv 13:27 BP 184 / 98; Pulse 69; Resp 18; Pulse Ox 98% ; sv 14:43 BP 184 / 98; Pulse 70; Resp 18; Pulse Ox 98% ; sv 09:11 Body Mass Index 23.11 (68.95 kg, 172.72 cm) ED Course: 09:02 Patient arrived in ED. sb2 09:03 KINA MCCLURE is Private Physician. sb2 09:08 Henrry Foley MD is Attending Physician. wa 09:09 Carol Zimmer, [facility] is Primary Nurse. sv 09:10 Triage completed. ss 09:10 Patient has correct armband on for positive identification. Bed in low position. Call sv light in reach. Door closed. Head of bed elevated. 09:11 Arm band placed on right wrist. ss 09:12 Awaiting ED provider evaluation. sv 09:35 Radiology exam delayed due to IV insertion attempt and/or patient not having ag1 appropriate IV at this time. 09:38 EKG done, by critical systems technician. reviewed by Henrry Foley MD. at1 09:40 Initial lab(s) drawn, by me, sent to lab. Inserted saline lock: 22 gauge in right sv forearm, using aseptic technique. ,using aseptic technique. diffusics Blood collected. Flushed right forearm with 5 ml normal saline. 09:[address] sw 09:45 X-ray completed. Portable x-ray completed in exam room. Patient tolerated procedure ag1 well. 09:51 XRAY Chest (1 view) In Process Unspecified. EDMS 09:51 Shoulder Left (2 View) XRAY In Process Unspecified. EDMS 09:52 CT Head Brain wo Cont In Process Unspecified. EDMS 12:24 Jesus Cho DO is Hospitalizing Provider. wa 12:28 Sling applied to left arm. dh3 12:40 Repeat lab(s) drawn. by me, sent to lab. sv 13:11 Padmini Worthy MD is Hospitalizing Provider. wa 14:48 Calvin Rooney MD is Referral Physician. wa 15:02 No provider procedures requiring assistance completed. IV discontinued, intact, sv bleeding controlled, No redness/swelling at site. Pressure dressing applied. Administered Medications: 09:42 Drug: Tylenol 1000 mg Route: PO; sv 10:00 Follow up: Response: No adverse reaction sv 10:35 Drug: Magnesium Sulfate 1 grams Route: IVPB; Infused Over: 1 hrs; Site: right forearm; sv 11:35 Follow up: Response: No adverse reaction; IV Status: Completed infusion; IV Intake: sv 100ml 11:05 Drug: fentaNYL (PF) 75 mcg Route: IVP; Site: right forearm; sv 11:55 Follow up: Response: No adverse reaction sv 12:27 Drug: Aspirin Chewable Tablet 324 mg Route: PO; sv 12:30 Follow up: Response: No adverse reaction sv 13:27 Drug: HydrALAZINE 25 mg Route: PO; sv 15:04 Follow up: Response: No adverse reaction sv 13:27 Drug: amLODIPine 5 mg Route: PO; sv 15:04 Follow up: Response: No adverse reaction sv 13:27 Drug: Metoprolol 50 mg Route: PO; sv 15:03 Follow up: Response: No adverse reaction sv Intake: 11:35 IV: 100ml; Total: 100ml. sv Outcome: 12:25 Decision to Hospitalize by Provider. wa 14:49 Discharge ordered by . wa 15:02 Discharged to home ambulatory, with family. sv 15:02 Condition: stable 15:02 Discharge instructions given to patient, Instructed on discharge instructions, follow up and referral plans. no drinking with medication, no driving heavy equipment, medication usage, Demonstrated understanding of instructions, follow-up care, medications, Prescriptions given X 1. 15:04 Patient left the ED. sv Signatures: Dispatcher [employer] EDCarol Contreras RN RN sv Smirch, Shelby, RN RN Radha carrillo, spool salvager EKG Tat1 Syl Diamond1 Teresita Luque, Abby 3 Henrry Foley MD MD wa Billeau, Sheri sb2
[2017-10-26] MEDS ORDERED: METOPROLOL TAR 50 MG TAB ONE (13:25)
[2017-10-26] MEDS ORDERED: AMLODIPINE 5 MG TAB ONE (13:26)
[2017-10-26] MEDS ORDERED: HYDRALAZINE HCL 10 MG TABLET ONE (13:26)
--- NOTE | 2017-10-26 14:44 | P.CNS ---
Date of Consult: 10/26/17 HPI: This is a 67-year-old male with significant past medical history of end- stage renal disease, CAD, hypertension, hyperlipidemia who presented to the ED after having a fall after being generalized weakness at home. Patient stated that the he hurt his shoulder. Extensive workup was done in the ER was shoulder x-ray was also done which was negative. Initially lab work revealed that patient had an elevated troponin of 0.14. Medicine team was consulted to admit the patient to the hospital. Patient recently had a cardiac catheterization done on June of 2017 for the cardiac catheterization was positive for acute coronary syndrome however medical management was opted given the patient's chronic illness and being high risk for any kind of coronary intervention. Patient denied having any fever chills nausea vomiting chest pain or any shortness of breath. Patient stated that he only came to the hospital because of the fall at home after being weak when he woke up this morning. PE: General: NAD CVS; RRR, No Murrmer, S1s2 Lung: CTABL, No W/R/R Abd: NT.ND soft and + BS in all 4 quadrants MS: L shoulder: pain, tenderness. Neuro: Orientation: is normal, Mentation: is normal, appropriate for stated age , Memory: is normal, Cranial nerves: grossly normal, noted L UE residual weakness. Lab: 10/26/17 09:40: Rapid Troponin I 0.14 H 10/26/17 09:40: PT 11.6, INR 0.98 10/26/17 09:40: WBC 4.5, RBC 3.34 L, Hgb 11.0 L, Hct 33.1 L, MCV 99.1, MCH 32.9 , MCHC 33.2, RDW 13.4, Plt Count 167, MPV 9.8, Neutrophils % 63.0, Lymphocytes % 22.8, Monocytes % 9.8, Eosinophils % 3.6, Basophils % 0.8, Absolute Neutrophils 2.8, Absolute Lymphocytes 1.0, Absolute Monocytes 0.4, Absolute Eosinophils 0.2, Absolute Basophils 0.0 10/26/17 09:40: Sodium 142, Potassium 3.9, Chloride 112 H, Carbon Dioxide 22, BUN 43 H, Creatinine 4.80 H, Estimated GFR 15 L, Glucose 85, Calcium 7.6 L, Magnesium 1.1 L*, Total Bilirubin 0.6, Direct Bilirubin 0.2, AST 33, ALT 33, Alkaline Phosphatase 63, Serum Total Protein 7.7, Albumin 3.9, Globulin 3.8 H, Albumin/Globulin Ratio 1.0 L A/p: 67-year-old male with significant past medical history of end-stage renal disease CAD hypertension hyperlipidemia presenting to the ED after having a fall due to generalized weakness due to hypomagnesemia. Patient also had elevated troponin most likely secondary to his end-stage renal disease. Cardiology Dr Duron was consulted by the medicine team who recommended that patient can be discharged home under stable condition as the troponins likely elevated due to end-stage renal disease. Patient also had a recent cardiac catheterization done in June of 2017 and has acute coronary artery disease however no intervention is recommended that this time only medical management due to high risk of chronic illnesses. Patient is to follow up with his manager international Dr Duron today after being discharged from the ER. Patient was discharged home from the ER under stable condition and was asked to follow up with Dr. duron today after he gets up from the hospital
[2017-10-26 16:30] VITALS: TEMP 97.8
[2017-10-26 16:58] VITALS: BP 184/98; O2SAT 98
== END 2017-10-26 15:04 | disposition home or self-care (01) ==
LOC: ER 09:00 → UNDOADMIN 12:27 → ERHOLD 12:27
DX: R74.8 Abnormal levels of other serum enzymes (principal); W10.8XXA Fall (on) (from) other stairs and steps, initial encounter; Y93.89 Activity, other specified; Y92.009 Unspecified place in unspecified non-institutional (private) residence as the place of occurrence of the external cause; Z79.82 Long term (current) use of aspirin; Z88.0 Allergy status to penicillin; Z99.2 Dependence on renal dialysis; F17.210 Nicotine dependence, cigarettes, uncomplicated; I12.0 Hypertensive chronic kidney disease with stage 5 chronic kidney disease or end stage renal disease; N18.6 End stage renal disease; I25.2 Old myocardial infarction
CPT/HCPCS: 36415; 70450; 71045; 73030; 80048; 80076; 83735; 84484 ×2; 85025; 85610; 93005; J3010; J3475; 96365; 96375; 99285

== ENCOUNTER 2017-10-28 15:14 | Emergency (ER) | payer OTHER ==
--- NOTE | 2017-10-28 16:00 | RAD REPORT ---
EXAM DESCRIPTION: RAD - Chest Single View - 10/28/2017 3:54 pm CLINICAL HISTORY: CHEST PAIN Chest pain. COMPARISON: Chest Single View dated 10/26/2017; Chest Single View dated 09/21/2017; Chest Single View dated 08/29/2017; Chest Single View dated 07/19/2017 FINDINGS: Portable technique limits examination quality. The lungs are grossly clear. The heart is normal in size. No displaced fractures.Sternotomy wires not ed. Right-sided venous catheter tip in the SVC. IMPRESSION: No acute intrathoracic process suspected.
[2017-10-28] MEDS ORDERED: FENTANYL CITR 100 MCG/2 ML ONE (16:09)
[2017-10-28] MEDS ORDERED: ONDANSETRON 4 MG/2 ML VIAL ONE (16:09)
[2017-10-28 16:27] LABS: Absolute Lymphocytes (CBC) 1.3 K/uL (0.7-4.9); Absolute Monocytes 0.5 K/uL (0.1-1.3); Absolute Neutrophil 3.4 K/uL (1.8-8.0); Basophils % 0.9 % (0-1.3); Eosinophils % 2.3 % (0-4.4); Hematocrit 32.8 % (39.6-49.0); Lymphocytes % 23.9 % (15.3-44.8); MCH 32.4 pg (27.0-35.0); MCV 99.1 fL (80-100); MPV 9.9 fL (7.6-11.3); Monocytes % 9.9 % (3.3-12.3); RBC Red Blood Cell Count 3.31 M/uL (4.33-5.43)
[2017-10-28 16:36] LABS: Protime INR 0.99
[2017-10-28 16:51] LABS: ALT/SGPT 31 U/L (12-78); AST/SGOT 35 U/L (15-37); Albumin 3.6 g/dL (3.4-5.0); Alkaline Phosphatase 55 U/L (45-117); BUN Blood Urea Nitrogen 50 mg/dL (7-18); Bicarbonate 24 mmol/L (21-32); Bilirubin Direct 0.1 mg/dL (0-0.2); Bilirubin Total 0.4 mg/dL (0.2-1.0); CKMB Creatine Kinase MB < 1.0 ng/mL (0.3-3.6); Creatine Phosphokinase 184 U/L (39-308); Glucose Level 81 mg/dL (74-106); Potassium 4.6 mmol/L (3.5-5.1); Protein, Total 7.6 g/dL (6.4-8.2); Sodium Level 139 mmol/L (136-145)
[2017-10-28 16:53] LABS: Magnesium 1.3 mg/dL (1.8-2.4)
--- NOTE | 2017-10-28 17:31 | EKG ---
Test Date: 2017-10-28 Test Time: 15:38:36 Channeler Insole: JOSE MEASUREMENT RESULTS: Intervals: Rate: 75 [place]: 134 QRSD: 82 QT: 420 QTc: 469 [place]: P: 77 [place]: 134 QRS: 8 T: 269 INTERPRETIVE STATEMENTS: Normal sinus rhythm ST & T wave abnormality, consider inferolateral ischemia Prolonged QT Abnormal ECG Compared to ECG 10/26/2017 09:31:32 No significant changes Electronically Signed On 10-28-17 17:30:07 CDT by Jono Hauser
[2017-10-28] MEDS ORDERED: HYDRALAZINE HCL 10 MG TABLET ONE (17:52)
[2017-10-28] MEDS ORDERED: cloNIDine HCl 0.1 MG TAB ONE (17:57)
--- NOTE | 2017-10-28 20:50 | EDPHYS ---
Physician Documentation [facility] Name: Julien Parikh Age: 67 yrs Sex: Male : 1950 Arrival Date: 10/28/2017 Time: 15:19 Bed 17 Private MD: KINA MCCLURE ED Physician Jeronimo Blackburn HPI: 10/28 15:50 This 67 yrs old Black Male presents to ER via EMS with complaints of Chest Pain > 30 cp y/o. 15:51 The patient or guardian reports chest pain that is located primarily in the substernal cp area. Onset: this morning, at 03:00. The pain radiates to Associated signs and symptoms: Pertinent positives: constipation, Pertinent negatives: abdominal pain, cough, diaphoresis, headache, lower extremity pain, lower extremity swelling, palpitations, shortness of breath, vomiting. 15:51 The chest pain is described as sharp, stabbing. cp 15:51 Duration: The patient or guardian reports a single episode, that is still ongoing, and cp unchanged. Severity of pain: in the emergency department the pain is unchanged despite home interventions. Historical: - Allergies: 15:31 PENICILLINS; sg - PMHx: 15:31 Asthma; CHF; chronic kidney disease; COPD; CVA; Dialysis T-Th-Sat; ESRD; Hepatitis; sg Hypertension; L arm paralysis; L sided weakness from CVA; Myocardial infarction; triple bypass; - PSHx: 15:31 triple bypass; dialysis port R chest wall; sg - Immunization history:: Adult Immunizations up to date. - Social history:: Smoking status: Patient/guardian denies using tobacco. - Ebola Screening: : Patient negative for fever greater than or equal to 101.5 degrees Fahrenheit, and additional compatible Ebola Virus Disease symptoms Patient denies exposure to infectious person Patient denies travel to an Ebola-affected area in the 21 days before illness onset No symptoms or risks identified at this time. ROS: 15:55 Constitutional: Negative for body aches, chills, fever, poor PO intake. cp 15:55 Eyes: Negative for injury, pain, redness, and discharge. cp 15:55 ENT: Negative for drainage from ear(s), ear pain, sore throat, difficulty swallowing, difficulty handling secretions. 15:55 Cardiovascular: Positive for chest pain, Negative for edema, palpitations. 15:55 Respiratory: Negative for cough, shortness of breath, wheezing. 15:55 Abdomen/GI: Negative for abdominal pain, nausea, vomiting, and diarrhea, constipation, black/tarry stool, rectal bleeding. 15:55 Back: Negative for pain at rest, pain with movement, radiated pain. 15:55 MS/extremity: Negative for injury or acute deformity, paresthesias. 15:55 Skin: Negative for cellulitis, rash. 15:55 Neuro: Negative for altered mental status, dizziness, headache, syncope, near syncope, weakness. 15:55 All other systems are negative. Exam: 16:00 Constitutional: The patient appears in no acute distress, alert, awake, cp non-diaphoretic, non-toxic, well developed, well nourished. 16:00 Head/face: Noted is Sinus tenderness, left side lower lip facial droop from previous CVA. 16:00 Eyes: Periorbital structures: appear normal, Pupils: equal, round, and reactive to light and accomodation, Extraocular movements: intact throughout, Conjunctiva: normal, no exudate, no injection, Sclera: no appreciated abnormality, Lids and lashes: appear normal, bilaterally. 16:00 ENT: External ear(s): are unremarkable, Ear canal(s): are normal, clear, TM's: bulging, is not appreciated, bilaterally, dullness, bilaterally, erythema, is not appreciated, bilaterally, Nose: is normal, Mouth: Lips: moist, Oral mucosa: pink and intact, moist, Posterior pharynx: is normal, airway is patent, no erythema, no exudate, Voice: is normal. 16:00 Neck: ROM/movement: is normal, is supple, without pain, no range of motions limitations, no meningismus, no nuchal rigidity. 16:00 Chest/axilla: Inspection: normal, Palpation: is normal, no crepitus, no tenderness. 16:00 Cardiovascular: Rate: normal, Rhythm: regular, Edema: is not appreciated, JVD: is not appreciated. 16:00 Respiratory: the patient does not display signs of respiratory distress, Respirations: normal, no use of accessory muscles, no retractions, no splinting, no tachypnea, Breath sounds: are clear throughout, no decreased breath sounds, no stridor, no wheezing. 16:00 Abdomen/GI: Inspection: abdomen appears normal, Bowel sounds: active, all quadrants, Palpation: abdomen is soft and non-tender, in all quadrants, rebound tenderness, is not appreciated, voluntary guarding, is not appreciated, involuntary guarding, is not appreciated. 16:00 Back: pain, is absent, ROM is normal. 16:00 Skin: cellulitis, is not appreciated, no rash present. 19:57 ECG was reviewed by the Attending Physician. Vital Signs: 15:32 BP 175 / 146; Pulse 80; Resp 16 S; Pulse Ox 98% on R/A; Pain 10/10; sg 15:32 Temp 97.6; sg 16:30 BP 214 / 83; Pulse 78; Resp 17 S; Pulse Ox 99% on R/A; Pain 6/10; sg 18:54 BP 178 / 90; Pulse 70 MON; Resp 17 S; Pulse Ox 96% on R/A; Pain 6/10; sg 20:22 BP 129 / 69; Pulse 70; Resp 19 S; Pulse Ox 98% on R/A; jd3 18:54 Sinus Rhythm sg MDM: 15:28 Patient medically screened. cp 21:00 The patient was not given aspirin in the Emergency Department. Patient reports taking cp aspirin within the past 24 hours. 21:00 Data reviewed: vital signs, nurses notes, lab test result(s), EKG, radiologic studies, cp plain films. 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 Response to treatment: the patient's symptoms have markedly improved after treatment, VSS. Blood pressure markedly improved. Refusal of service: The patient/guardian displays adequate decision making capability and despite a detailed discussion of alternatives, benefits, risks, and consequences refuses: to wait for results of repeat troponin level. 10/28 15:32 Order name: Basic Metabolic Panel; Complete Time: 16:55 cp 10/28 15:32 Order name: CBC with Diff; Complete Time: 16:45 cp 10/28 16:45 Interpretation: Normal except: WBC 5.4; RBC 3.31; HGB 10.7; HCT 32.8. cp 10/28 15:32 Order name: Ckmb; Complete Time: 16:55 cp 10/28 15:32 Order name: CPK; Complete Time: 16:55 cp 10/28 15:32 Order name: LFT's; Complete Time: 16:55 cp 10/28 15:32 Order name: Magnesium; Complete Time: 16:55 cp 10/28 15:32 Order name: PT-INR; Complete Time: 16:45 cp 10/28 15:32 Order name: Ptt, Activated; Complete Time: 16:45 cp 10/28 15:32 Order name: Troponin (emerg Dept Use Only); Complete Time: 16:55 cp 10/28 15:32 Order name: XRAY Chest (1 view); Complete Time: 16:45 cp 10/28 19:23 Order name: Troponin (emerg Dept Use Only); Complete Time: 21:03 jd3 10/28 21:04 Interpretation: Reviewed. 10/28 15:32 Order name: EKG; Complete Time: 15:32 cp 10/28 15:32 Order name: Cardiac monitoring; Complete Time: 18:36 cp 10/28 15:32 Order name: EKG - Nurse/Tech; Complete Time: 18:36 cp 10/28 15:32 Order name: IV Saline Lock; Complete Time: 18:36 cp 10/28 15:32 Order name: Labs collected and sent; Complete Time: 18:36 cp 10/28 15:32 Order name: O2 Per Protocol; Complete Time: 18:36 cp 10/28 15:32 Order name: O2 Sat Monitoring; Complete Time: 18:36 cp 10/28 18:15 Order name: Diet Renal; Complete Time: 18:15 mh5 10/28 19:23 Order name: EKG - Nurse/Tech; Complete Time: 19:53 jd3 EC:57 Rate is 73 beats/min. Rhythm is regular. IN interval is normal. QRS interval is normal. cp QT interval is prolonged at 432 msec. T waves are Inverted in leads I, II, III, aVF, V4, V5, V6. Interpreted by me. Reviewed by me. Administered Medications: 15:44 Not Given (was given PIPELINE ENGINEER): Aspirin Chewable Tablet 324 mg PO once; 81 mg tablets x 4 sg 16:00 Drug: Zofran 4 mg Route: IVP; Site: right antecubital; iw 20:58 Follow up: Response: No adverse reaction jd3 17:28 Drug: fentaNYL (PF) 25 mcg Route: IVP; Site: right hand; sg 20:58 Follow up: Response: No adverse reaction jd3 18:14 Not Given (Physician Discretion): hydrALAZINE 5 mg IV at calculated rate once sg 18:14 Not Given (Other Intervention Used): HydrALAZINE 50 mg PO once sg 18:14 Drug: cloNIDine 0.2 mg Route: PO; sg 18:30 Follow up: Response: No adverse reaction; Blood pressure is lowered sg Disposition: 21:30 Chart complete. cp Disposition: 10/28/17 21:05 Patient has left against medical advice. Impression: Chest pain, unspecified, Hypertensive heart and chronic kidney disease. - Patients states they are going to Home. - Condition is Stable. - Discharge Instructions: Nonspecific Chest Pain, Aspirin and Your Heart. Follow up: Yamil Fitzgerald DO; When: Tomorrow; Reason: dialysis. - Problem is new. - Symptoms have improved. Addendum: 10/31/2017 19:40 Co-signature as Attending Physician, Jeronimo Blackburn MD. r n Signatures: Dispatcher [employer] EDMS Wood Brock RN RN sg Williams, Irene, RN RN iw Nieto, Roman, MD MD rn Page, Corey, PA PA cp Davies, Jonathon, RN RN jd3 Corrections: (The following items were deleted from the chart) 10/28 20:51 20:50 10/28/2017 20:50 Discharged to Home. Impression: Other chest pain. Condition is cp Stable. Forms are Medication Reconciliation Form, Thank You Letter, Antibiotic Education, Prescription Opioid Use. Follow up: Yamil Fitzgerald; When: Tomorrow; Reason: dialysis. Problem is new. Symptoms have improved. cp 20:59 15:32 Urine Dipstick-Ancillary ordered. cp jd3 21:05 21:05 10/28/2017 21:05 Patients has left against medical advice. Impression: Chest cp pain, unspecified. Patient states they are going to Home. Condition is Stable. Follow up: Yamil Fitzgerald; When: Tomorrow; Reason: dialysis. Problem is new. Symptoms have improved. cp 21:07 21:05 10/28/2017 21:05 Patients has left against medical advice. Impression: Chest jd3 pain, unspecified; Hypertensive heart and chronic kidney disease. Patient states they are going to Home. Condition is Stable. Discharge Instructions: Nonspecific Chest Pain, Aspirin and Your Heart. Follow up: Yamil Fitzgerald; When: Tomorrow; Reason: dialysis. Problem is new. Symptoms have improved. cp
--- NOTE | 2017-10-28 20:50 | ER ---
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 Transition of care: patient was not received from another setting of care. Onset of symptoms was October 28, 2017. Risk Assessment: Do you want to hurt yourself or someone else? Patient reports no desire to harm self or others. Initial Sepsis Screen: Does the patient meet any 2 criteria? No. Patient's initial sepsis screen is negative. Does the patient have a suspected source of infection? No. Patient's initial sepsis screen is negative. Care prior to arrival: Medication(s) given: ASA, 81 mg, x 4. 15:20 Method Of Arrival: EMS: [facility] sg 15:20 Acuity: PERRI 3 sg Historical: - Allergies: 15:31 PENICILLINS; sg - PMHx: 15:31 Asthma; CHF; chronic kidney disease; COPD; CVA; Dialysis T-Th-Sat; ESRD; Hepatitis; sg Hypertension; L arm paralysis; L sided weakness from CVA; Myocardial infarction; triple bypass; - PSHx: 15:31 triple bypass; dialysis port R chest wall; sg - Immunization history:: Adult Immunizations up to date. - Social history:: Smoking status: Patient/guardian denies using tobacco. - Ebola Screening: : Patient negative for fever greater than or equal to 101.5 degrees Fahrenheit, and additional compatible Ebola Virus Disease symptoms Patient denies exposure to infectious person Patient denies travel to an Ebola-affected area in the 21 days before illness onset No symptoms or risks identified at this time. Screenin:00 Abuse screen: Denies threats or abuse. Denies injuries from another. Nutritional sg screening: No deficits noted. Tuberculosis screening: No symptoms or risk factors identified. Never had TB. Fall Risk None identified. Assessment: 15:00 General: Appears in no apparent distress. comfortable, well groomed, well developed, sg well nourished, Behavior is calm, cooperative, appropriate for age. Pain: Complains of pain in chest Pain does not radiate. Quality of pain is described as sharp, stabbing. Pain: Pain began 0300. Neuro: Level of Consciousness is awake, alert, obeys commands, Oriented to person, place, time, situation, Enroute Controller are equal bilaterally Moves all extremities. Full function Speech is normal, Facial symmetry appears normal. Cardiovascular: Heart tones S1 S2 present Capillary refill is brisk in bilateral fingers Patient's skin is warm and dry. Respiratory: Airway is patent Respiratory effort is even, unlabored, Respiratory pattern is regular, symmetrical, Breath sounds are clear. GI: No deficits noted. Abdomen is flat, non-distended, Bowel sounds present X 4 quads. : No signs and/or symptoms were reported regarding the genitourinary system. EENT: No signs and/or symptoms were reported regarding the EENT system. Derm: Skin is pink, warm \\T\\ dry. Musculoskeletal: No signs and/or symptoms reported regarding the musculoskeletal system. 16:00 Reassessment: Patient appears in no apparent distress at this time. Patient and/or sg family updated on plan of care and expected duration. Pain level reassessed. Patient is alert, oriented x 3, equal unlabored respirations, skin warm/dry/pink. 17:00 Reassessment: Patient appears in no apparent distress at this time. Patient and/or sg family updated on plan of care and expected duration. Pain level reassessed. Patient is alert, oriented x 3, equal unlabored respirations, skin warm/dry/pink. reports pain is " a little better" rates an 10/16. 18:10 Reassessment: Patient appears in no apparent distress at this time. Patient and/or sg family updated on plan of care and expected duration. Pain level reassessed. Patient is alert, oriented x 3, equal unlabored respirations, skin warm/dry/pink. pt requesting a tray at this time, d/t not having anything to eat since this morning. C.Page PA notified, a tray has been ordered Patient states feeling better. 20:22 Reassessment: Patient appears in no apparent distress at this time. No changes from jd3 previously documented assessment. Patient and/or family updated on plan of care and expected duration. Pain level reassessed. Patient is alert, oriented x 3, equal unlabored respirations, skin warm/dry/pink. 20:59 Reassessment: Patient appears in no apparent distress at this time. Patient and/or jd3 family updated on plan of care and expected duration. Pain level reassessed. Patient is alert, oriented x 3, equal unlabored respirations, skin warm/dry/pink. pt reported he was leaving against medical advice because his ride was leaving, provider had pt sign AMA form, pt with even and steady gait upon discharge. Patient states feeling better. Vital Signs: 15:32 BP 175 / 146; Pulse 80; Resp 16 S; Pulse Ox 98% on R/A; Pain 10/10; sg 15:32 Temp 97.6; sg 16:30 BP 214 / 83; Pulse 78; Resp 17 S; Pulse Ox 99% on R/A; Pain 6/10; sg 18:54 BP 178 / 90; Pulse 70 MON; Resp 17 S; Pulse Ox 96% on R/A; Pain 6/10; sg 20:22 BP 129 / 69; Pulse 70; Resp 19 S; Pulse Ox 98% on R/A; jd3 18:54 Sinus Rhythm sg ED Course: 15:19 Patient arrived in ED. iw 15:20 Patient has correct armband on for positive identification. Bed in low position. Call sg light in reach. Side rails up X2. outdoor landscape architect on. Pulse ox on. NIBP on. 15:27 Wood Brock, SUMI is Primary Nurse. sg 15:27 Rigo Gupta PA is PHCP. cp 15:27 Jeronimo Blackburn MD is Attending Physician. cp 15:27 KINA MCCLURE is Private Physician. sg 15:27 Arm band placed on. sg 15:30 Triage completed. sg 15:54 X-ray completed. Portable x-ray completed in exam room. Patient tolerated procedure kc2 well. 15:54 XRAY Chest (1 view) In Process Unspecified. EDMS 16:10 EKG done, by respiratory technician. reviewed by Rigo MOCTEZUMA. sm3 17:20 Inserted saline lock: 24 gauge in right hand, using aseptic technique. Flushed right sv hand with 2 ml normal saline. 19:00 Diet: Renal Diet provided. sg 19:02 Primary Nurse role handed off by Wood Brock RN jd3 19:02 Kirby Champion, RN is Primary Nurse. jd3 20:23 Patient maintains SpO2 saturation greater than 95% on room air. jd3 20:49 Yamil Fitzgerald DO is Referral Physician. cp 20:55 No provider procedures requiring assistance completed. IV discontinued, intact, jd3 bleeding controlled, No redness/swelling at site. Pressure dressing applied, dc'd by Martita JONAS. 21:04 Yamil Fitzgerald DO is Referral Physician. cp Administered Medications: 15:44 Not Given (was given BRIDGES SUPERVISOR): Aspirin Chewable Tablet 324 mg PO once; 81 mg tablets x 4 sg 16:00 Drug: Zofran 4 mg Route: IVP; Site: right antecubital; iw 20:58 Follow up: Response: No adverse reaction jd3 17:28 Drug: fentaNYL (PF) 25 mcg Route: IVP; Site: right hand; sg 20:58 Follow up: Response: No adverse reaction jd3 18:14 Not Given (Physician Discretion): hydrALAZINE 5 mg IV at calculated rate once sg 18:14 Not Given (Other Intervention Used): HydrALAZINE 50 mg PO once sg 18:14 Drug: cloNIDine 0.2 mg Route: PO; sg 18:30 Follow up: Response: No adverse reaction; Blood pressure is lowered sg Outcome: 20:50 Discharge ordered by . cp 20:56 AMA AMA form signed jd3 20:56 Condition: good 20:56 Instructed on follow up and referral plans. Demonstrated understanding of instructions. 21:07 Patient left the ED. jd3 Signatures: Dispatcher [employer] EDMS Carol Zimmer RN RN Wood Brock RN RN sg Williams, Irene, RN RN Rigo Gupta PA PA cp Carr, Kelsie kc2 Kirby Champion RN RN jd3 Ami Montoya sm3 Corrections: (The following items were deleted from the chart) 18:28 17:20 Inserted saline lock: 24 gauge in right hand, using aseptic technique. Flushed sv right hand with 2 ml normal saline iw
[2017-10-28 23:02] VITALS: TEMP 97.6
[2017-10-28 23:09] VITALS: BP 129/69; O2SAT 98
--- NOTE | 2017-10-31 07:01 | EKG ---
Test Date: 2017-10-28 Test Time: 19:43:45 Clay Modeler: DAISY MEASUREMENT RESULTS: Intervals: Rate: 73 [place]: 140 QRSD: 84 QT: 432 QTc: 475 [place]: P: 77 [place]: 140 QRS: -3 T: 248 INTERPRETIVE STATEMENTS: Normal sinus rhythm ST & T wave abnormality, consider inferolateral ischemia Prolonged QT Abnormal ECG Compared to ECG 10/28/2017 15:38:36 No significant changes Electronically Signed On 10-31-17 07:00:32 CDT by Luis Eduardo Alanis
== END 2017-10-28 21:07 | disposition left against medical advice (07) ==
LOC: ER 15:14
DX: I13.11 Hypertensive heart and chronic kidney disease without heart failure, with stage 5 chronic kidney disease, or end stage renal disease (principal); N18.6 End stage renal disease; Z88.0 Allergy status to penicillin; Z99.2 Dependence on renal dialysis; Z86.73 Personal history of transient ischemic attack (TIA), and cerebral infarction without residual deficits
CPT/HCPCS: 36415; 71045; 80048; 80076; 82550; 82553; 83735; 84484 ×2; 85025; 85610; 85730; 93005 ×2; 99285; J2405; J3010

== ENCOUNTER 2017-11-08 09:59 | Emergency (ER) | payer OTHER ==
--- NOTE | 2017-11-08 11:45 | EDPHYS ---
Physician Documentation [facility] Name: Julien Parikh Age: 67 yrs Sex: Male : 1950 Arrival Date: 11/08/2017 Time: 10:02 Bed 12 Private MD: KINA MCCLURE ED Physician Rigo Parsons HPI: 11/08 11:04 This 67 yrs old Black Male presents to ER via Ambulatory with complaints of Shoulder naheed Pain. 11:04 The patient or guardian complains of decreased range of motion, pain, tenderness. left naheed shoulder. Context: The problem was sustained at home, resulted from a direct blow, by a door. Onset: The symptoms/episode began/occurred 2 day(s) ago. Modifying factors: the symptoms are alleviated by remaining still, sling, The symptoms are aggravated by movement. Associated signs and symptoms: The patient has no apparent associated signs or symptoms. Severity of symptoms: At their worst the symptoms were mild, moderate, in the emergency department the symptoms are unchanged. Treatment prior to arrival includes: no previous treatment. Historical: - Allergies: 10:24 PENICILLINS; iw - PMHx: 10:24 Asthma; CHF; chronic kidney disease; COPD; Dialysis T-Th-Sat; ESRD; Hepatitis; CVA; iw Hypertension; L arm paralysis; L sided weakness from CVA; Myocardial infarction; triple bypass; - PSHx: 10:24 triple bypass; dialysis port R chest wall; iw - Immunization history:: Adult Immunizations up to date. - Social history:: Smoking status: Patient uses tobacco products, smokes one-half pack cigarettes per day. - Ebola Screening: : Patient negative for fever greater than or equal to 101.5 degrees Fahrenheit, and additional compatible Ebola Virus Disease symptoms Patient denies exposure to infectious person Patient denies travel to an Ebola-affected area in the 21 days before illness onset No symptoms or risks identified at this time. - Family history:: not pertinent. ROS: 11:04 Constitutional: Negative for fever, chills, and weight loss, Eyes: Negative for injury, naehed pain, redness, and discharge, ENT: Negative for injury, pain, and discharge, Neck: Negative for injury, pain, and swelling, Cardiovascular: Negative for chest pain, palpitations, and edema, Respiratory: Negative for shortness of breath, cough, wheezing, and pleuritic chest pain, Abdomen/GI: Negative for abdominal pain, nausea, vomiting, diarrhea, and constipation, Back: Negative for injury and pain, : Negative for injury, bleeding, discharge, and swelling, Skin: Negative for injury, rash, and discoloration, Neuro: Negative for headache, weakness, numbness, tingling, and seizure, Psych: Negative for depression, anxiety, suicide ideation, homicidal ideation, and hallucinations, Allergy/Immunology: Negative for hives, rash, and allergies, Endocrine: Negative for neck swelling, polydipsia, polyuria, polyphagia, and marked weight changes, Hematologic/Lymphatic: Negative for swollen nodes, abnormal bleeding, and unusual bruising. 11:04 MS/extremity: Positive for decreased range of motion, pain, tenderness, of the anterior aspect of left shoulder and posterior aspect of left shoulder. Exam: 11:04 Constitutional: This is a well developed, well nourished patient who is awake, alert, naheed and in no acute distress. Head/Face: Normocephalic, atraumatic. Eyes: Pupils equal round and reactive to light, extra-ocular motions intact. Lids and lashes normal. Conjunctiva and sclera are non-icteric and not injected. Cornea within normal limits. Periorbital areas with no swelling, redness, or edema. ENT: Nares patent. No nasal discharge, no septal abnormalities noted. Tympanic membranes are normal and external auditory canals are clear. Oropharynx with no redness, swelling, or masses, exudates, or evidence of obstruction, uvula midline. Mucous membranes moist. Neck: Trachea midline, no thyromegaly or masses palpated, and no cervical lymphadenopathy. Supple, full range of motion without nuchal rigidity, or vertebral point tenderness. No Meningismus. Chest/axilla: Normal chest wall appearance and motion. Nontender with no deformity. No lesions are appreciated. Cardiovascular: Regular rate and rhythm with a normal S1 and S2. No gallops, murmurs, or rubs. Normal PMI, no JVD. No pulse deficits. Respiratory: Lungs have equal breath sounds bilaterally, clear to auscultation and percussion. No rales, rhonchi or wheezes noted. No increased work of breathing, no retractions or nasal flaring. Abdomen/GI: Soft, non-tender, with normal bowel sounds. No distension or tympany. No guarding or rebound. No evidence of tenderness throughout. Back: No spinal tenderness. No costovertebral tenderness. Full range of motion. Male : Normal genitalia with no discharge or lesions. Skin: Warm, dry with normal turgor. Normal color with no rashes, no lesions, and no evidence of cellulitis. Neuro: Awake and alert, GCS 15, oriented to person, place, time, and situation. Cranial nerves II-XII grossly intact. Motor strength 5/5 in all extremities. Sensory grossly intact. Cerebellar exam normal. Normal gait. Psych: Awake, alert, with orientation to person, place and time. Behavior, mood, and affect are within normal limits. 11:04 Musculoskeletal/extremity: Extremities: noted in the anterior aspect of left shoulder and posterior aspect of left shoulder: decreased ROM, pain, tenderness. Vital Signs: 10:24 BP 182 / 72; Pulse 89; Resp 18; Temp 98.2; Pulse Ox 98% ; Pain 9/10; iw 11:54 BP 172 / 69; Pulse 74; Resp 16; Pulse Ox 98% on R/A; iw MDM: 10:23 Patient medically screened. [facility] 11:06 Data reviewed: vital signs, nurses notes, radiologic studies, plain films. [facility] 11/08 11:04 Order name: Shoulder Left (2 View) XRAY [facility] 11/08 11:04 Order name: Ice pack; Complete Time: 11:53 [facility] Administered Medications: No medications were administered Disposition: 11/08/17 11:44 Discharged to Home. Impression: Pain in left shoulder, End stage renal disease. - Condition is Stable. - Discharge Instructions: Arthritis, Nonspecific, Musculoskeletal Pain, Shoulder Pain, Shoulder Pain, [id number], End-Stage Kidney Disease, Dialysis Diet, [id number]. - Prescriptions for Tylenol- Codeine #3 300-30 mg Oral Tablet - take 2 tablet by ORAL route every 6 hours As needed; 30 tablet. - Medication Reconciliation Form, Thank You Letter, Antibiotic Education, Prescription Opioid Use form. - Follow up: Private Physician; When: 2 - 3 days; Reason: Recheck today's complaints, Continuance of care, Re-evaluation by your physician. Follow up: Mark Singer; When: 2 - 3 days; Reason: Recheck today's complaints, Continuance of care, Re-evaluation by your physician. - Problem is new. - Symptoms have improved. Signatures: Dispatcher [employer] Rigo Bell MD MD cha Williams, Irene, RN RN iw Corrections: (The following items were deleted from the chart) 11:53 11:04 Sling ordered. naheed kaye 11:56 11:44 11/08/2017 11:44 Discharged to Home. Impression: Pain in left shoulder; End stage iw renal disease. Condition is Stable. Discharge Instructions: Musculoskeletal Pain, Shoulder Pain, Shoulder Pain, Zyyr-mh-[id number], Dialysis Diet, Eliq-gy-Qgvh, Arthritis, Nonspecific, End-Stage Kidney Disease. Prescriptions for Tylenol-Codeine #3 300-30 mg Oral Tablet - take 2 tablet by ORAL route every 6 hours As needed; 30 tablet. and Forms are Medication Reconciliation Form, Thank You Letter, Antibiotic Education, Prescription Opioid Use. Follow up: Private Physician; When: 2 - 3 days; Reason: Recheck today's complaints, Continuance of care, Re-evaluation by your physician. Follow up: Mark Singer; When: 2 - 3 days; Reason: Recheck today's complaints, Continuance of care, Re-evaluation by your physician. Problem is new. Symptoms have improved. naheed
--- NOTE | 2017-11-08 11:45 | ER ---
Nurse's Notes [facility] Name: Julien Parikh Age: 67 yrs Sex: Male : 1950 Arrival Date: 11/08/2017 Time: 10:02 Bed 12 Private MD: KINA MCCLURE Diagnosis: Pain in left shoulder;End stage renal disease Presentation: 11/08 10:19 Presenting complaint: Patient states: has hx of chronic pain in left shoulder since his iw stroke in July, he fell 2 weeks ago and hurt it, then he bumped into the door today and hurt it again, rates pain 9/10. Transition of care: patient was not received from another setting of care. Onset of symptoms was November 08, 2017. Risk Assessment: Do you want to hurt yourself or someone else? Patient reports no desire to harm self or others. Initial Sepsis Screen: Does the patient meet any 2 criteria? No. Patient's initial sepsis screen is negative. Does the patient have a suspected source of infection? No. Patient's initial sepsis screen is negative. Care prior to arrival: None. 10:19 Method Of Arrival: Ambulatory iw 10:19 Acuity: PERRI 4 iw Triage Assessment: 11:00 General: Appears in no apparent distress. Behavior is calm, cooperative. iw Historical: - Allergies: 10:24 PENICILLINS; iw - PMHx: 10:24 Asthma; CHF; chronic kidney disease; COPD; Dialysis T-Th-Sat; ESRD; Hepatitis; CVA; iw Hypertension; L arm paralysis; L sided weakness from CVA; Myocardial infarction; triple bypass; - PSHx: 10:24 triple bypass; dialysis port R chest wall; iw - Immunization history:: Adult Immunizations up to date. - Social history:: Smoking status: Patient uses tobacco products, smokes one-half pack cigarettes per day. - Ebola Screening: : Patient negative for fever greater than or equal to 101.5 degrees Fahrenheit, and additional compatible Ebola Virus Disease symptoms Patient denies exposure to infectious person Patient denies travel to an Ebola-affected area in the 21 days before illness onset No symptoms or risks identified at this time. - Family history:: not pertinent. Screenin:54 Abuse screen: Denies threats or abuse. Denies injuries from another. Nutritional iw screening: No deficits noted. Tuberculosis screening: No symptoms or risk factors identified. Fall Risk None identified. Assessment: 11:00 General: Appears in no apparent distress. Behavior is calm, cooperative. Pain: iw Complains of pain in left shoulder. Neuro: Level of Consciousness is awake, alert, obeys commands, Oriented to person, place, time, Moves all extremities. Full function. Cardiovascular: Patient's skin is warm and dry. Respiratory: Respiratory effort is even, unlabored, Respiratory pattern is regular. Derm: Skin is pink, warm \T\ dry. normal. Musculoskeletal: Range of motion: limited in left shoulder, left elbow and left wrist. Vital Signs: 10:24 BP 182 / 72; Pulse 89; Resp 18; Temp 98.2; Pulse Ox 98% ; Pain 9/10; iw 11:54 BP 172 / 69; Pulse 74; Resp 16; Pulse Ox 98% on R/A; iw ED Course: 10:02 Patient arrived in ED. mr 10:03 KINA MCCLURE is Private Physician. mr 10:19 Josephine Brandon, RN is Primary Nurse. iw 10:23 Rigo Parsons MD is Attending Physician. naheed 10:24 Triage completed. iw 10:35 Arm band placed on. iw 11:00 Patient has correct armband on for positive identification. iw 11:31 X-ray completed. Portable x-ray completed in exam room. Patient tolerated procedure mh1 well. 11:33 Shoulder Left (2 View) XRAY In Process Unspecified. EDMS 11:44 Mark Singer MD is Referral Physician. naheed 11:55 No provider procedures requiring assistance completed. Patient did not have IV access iw during this emergency room visit. Administered Medications: No medications were administered Outcome: 11:44 Discharge ordered by . naheed 11:54 Discharged to home ambulatory. iw 11:54 Condition: good 11:54 Discharge instructions given to patient, Instructed on discharge instructions, follow up and referral plans. medication usage, Demonstrated understanding of instructions, follow-up care, medications, Prescriptions given X 1. 11:56 Patient left the ED. iw Signatures: Dispatcher [employer] EDMS Rigo Parsons MD MD cha Rivera, Maria Patricia Paul 1 Josephine Brandon, RN RN iw Corrections: (The following items were deleted from the chart) 11:53 10:24 Resp 18bpm; Pulse Ox 98%; Temp 98.2F; iw iw
--- NOTE | 2017-11-08 12:27 | RAD REPORT ---
EXAM DESCRIPTION: RAD - Shoulder Left 2 View - 11/08/2017 11:33 am CLINICAL HISTORY: Left shoulder pain FINDINGS: No fracture or dislocation is seen. The bones are osteoporotic. Mild osteoarthritis involves the acromioclavicular joint mainly consisting of joint space narrowing.
== END 2017-11-08 11:56 | disposition home or self-care (01) ==
LOC: ER 09:59
DX: M25.512 Pain in left shoulder (principal); J45.909 Unspecified asthma, uncomplicated; J44.9 Chronic obstructive pulmonary disease, unspecified; I13.2 Hypertensive heart and chronic kidney disease with heart failure and with stage 5 chronic kidney disease, or end stage renal disease; N18.6 End stage renal disease; I50.9 Heart failure, unspecified; I25.2 Old myocardial infarction; I69.354 Hemiplegia and hemiparesis following cerebral infarction affecting left non-dominant side; F17.210 Nicotine dependence, cigarettes, uncomplicated; Z88.0 Allergy status to penicillin
CPT/HCPCS: 99283

== ENCOUNTER 2017-12-13 05:12 | Observation (INO) | payer OTHER ==
[2017-12-13 06:25] LABS: Absolute Lymphocytes (CBC) 1.8 K/uL (0.7-4.9); Absolute Monocytes 0.6 K/uL (0.1-1.3); Absolute Neutrophil 2.5 K/uL (1.8-8.0); Basophils % 0.6 % (0-1.3); Eosinophils % 4.1 % (0-4.4); Hematocrit 29.5 % (39.6-49.0); MCH 34.4 pg (27.0-35.0); MCV 100.4 fL (80-100); MPV 9.5 fL (7.6-11.3); RBC Red Blood Cell Count 2.94 M/uL (4.33-5.43)
[2017-12-13 06:28] LABS: Protime INR 0.92
[2017-12-13] MEDS ORDERED: MORPHINE 4 MG/ML SYR ONE (06:29)
[2017-12-13] MEDS ORDERED: ONDANSETRON 4 MG/2 ML VIAL ONE (06:29)
[2017-12-13] MEDS ORDERED: TICAGRELOR 90 MG TABLET PO ONE (06:29)
[2017-12-13] MEDS ORDERED: AMLODIPINE 5 MG TAB ONE (06:29)
[2017-12-13] MEDS ORDERED: METOPROLOL TAR 25 MG TAB ONE (06:29)
--- NOTE | 2017-12-13 06:51 | EKG ---
Test Date: 2017-12-13 Test Time: 05:19:54 Website Designer: JIE MEASUREMENT RESULTS: Intervals: Rate: 92 MI: 136 QRSD: 82 QT: 398 QTc: 492 [place]: P: 81 MI: 136 QRS: 25 T: 71 INTERPRETIVE STATEMENTS: Normal sinus rhythm Nonspecific ST and T wave abnormality Prolonged QT Abnormal ECG Compared to ECG 10/28/2017 19:43:45 Possible ischemia no longer present ST (T wave) deviation still present Electronically Signed On 12-13-17 06:50:16 CDT by Luis Eduardo Alanis
[2017-12-13] MEDS ORDERED: HYDRALAZINE HCL 10 MG TABLET ONE (07:00)
[2017-12-13 07:06] LABS: ALT/SGPT 28 U/L (12-78); AST/SGOT 24 U/L (15-37); Albumin 3.3 g/dL (3.4-5.0); Alkaline Phosphatase 78 U/L (45-117); BUN Blood Urea Nitrogen 48 mg/dL (7-18); Bicarbonate 25 mmol/L (21-32); Bilirubin Direct 0.2 mg/dL (0-0.2); Bilirubin Total 0.4 mg/dL (0.2-1.0); CKMB Creatine Kinase MB < 1.0 ng/mL (0.3-3.6); Creatine Phosphokinase 98 U/L (39-308); Glucose Level 84 mg/dL (74-106); Lipase 237 U/L (73-393); Magnesium 1.5 mg/dL (1.8-2.4); NT PRO-BNP 4858 pg/mL (<125); Potassium 4.7 mmol/L (3.5-5.1); Protein, Total 7.3 g/dL (6.4-8.2); Sodium Level 145 mmol/L (136-145)
--- NOTE | 2017-12-13 07:32 | EDPHYS ---
Physician Documentation [facility] Name: Julien Parikh Age: 67 yrs Sex: Male : 1950 Arrival Date: 12/13/2017 Time: 05:21 Bed 7 Private MD: ED Physician Rigo Parsons HPI: 12/13 06:13 This 67 yrs old Black Male presents to ER via EMS with complaints of Chest Pain. [facility] 06:13 The patient or guardian reports chest pain that is located primarily in the anterior naheed chest wall, bilaterally. Onset: this morning, yesterday. The pain does not radiate. Associated signs and symptoms: The patient has no apparent associated signs or symptoms. The chest pain is described as a pressure. Severity of pain: At its worst the pain was mild moderate in the emergency department the pain is unchanged. The patient has experienced similar episodes in the past, several times. Historical: - Allergies: 05: PENICILLINS; ao - Home Meds: : Advair Diskus 250-50 mcg/dose Inhl dsdv 1 puff 2 times per day [Active]; aspirin 81 mg ao Oral chew 1 tab once daily [Active]; atorvastatin 80 mg Oral tab 1 tab nightly [Active]; BRILINTA 90 mg Oral tab 1 tab 2 times per day [Active]; carvedilol 25 mg Oral tab 1 tab 2 times per day [Active]; isosorbide mononitrate 60 mg Oral Tb24 1 tab once daily [Active]; hydralazine 50 mg Oral tab 2 tab 2 times per day [Active]; metoprolol tartrate 25 mg Oral tab 2 tabs 2 times per day [Active]; Norvasc 5 mg Oral tab 1 tab once daily [Active]; Ranexa 1,000 mg Oral Tb12 1 tab 2 times per day [Active]; Renagel 800 mg Oral tab 2 tabs 3 times per day [Active]; Renvela 800 mg Oral tab 2 tabs 3 times per day [Active]; Pepcid Oral [Active]; - PMHx: 05:28 Asthma; CHF; chronic kidney disease; COPD; CVA; Dialysis T-Th-Sat; ESRD; Hepatitis; ao Hypertension; L arm paralysis; L sided weakness from CVA; Myocardial infarction; triple bypass; - PSHx: : Unable to obtain; ao - Immunization history:: Adult Immunizations up to date. - Social history:: Smoking status: Patient/guardian denies using tobacco, Patient uses street drugs, marijuana, Patient/guardian denies using alcohol, but has a distant history of alcohol abuse, IV drugs. - Ebola Screening: : Patient negative for fever greater than or equal to 101.5 degrees Fahrenheit, and additional compatible Ebola Virus Disease symptoms Patient denies exposure to infectious person Patient denies travel to an Ebola-affected area in the 21 days before illness onset. - Family history:: not pertinent. ROS: 06:13 Constitutional: Negative for fever, chills, and weight loss, Eyes: Negative for injury, naheed pain, redness, and discharge, ENT: Negative for injury, pain, and discharge, Neck: Negative for injury, pain, and swelling, Respiratory: Negative for shortness of breath, cough, wheezing, and pleuritic chest pain, Abdomen/GI: Negative for abdominal pain, nausea, vomiting, diarrhea, and constipation, Back: Negative for injury and pain, : Negative for injury, bleeding, discharge, and swelling, MS/Extremity: Negative for injury and deformity, Skin: Negative for injury, rash, and discoloration, Neuro: Negative for headache, weakness, numbness, tingling, and seizure, Psych: Negative for depression, anxiety, suicide ideation, homicidal ideation, and hallucinations, Allergy/Immunology: Negative for hives, rash, and allergies, Endocrine: Negative for neck swelling, polydipsia, polyuria, polyphagia, and marked weight changes, Hematologic/Lymphatic: Negative for swollen nodes, abnormal bleeding, and unusual bruising. 06:13 Cardiovascular: Positive for chest pain. Exam: 06:13 Constitutional: This is a well developed, well nourished patient who is awake, alert, naheed and in no acute distress. Head/Face: Normocephalic, atraumatic. Eyes: Pupils equal round and reactive to light, extra-ocular motions intact. Lids and lashes normal. Conjunctiva and sclera are non-icteric and not injected. Cornea within normal limits. Periorbital areas with no swelling, redness, or edema. ENT: Nares patent. No nasal discharge, no septal abnormalities noted. Tympanic membranes are normal and external auditory canals are clear. Oropharynx with no redness, swelling, or masses, exudates, or evidence of obstruction, uvula midline. Mucous membranes moist. Neck: Trachea midline, no thyromegaly or masses palpated, and no cervical lymphadenopathy. Supple, full range of motion without nuchal rigidity, or vertebral point tenderness. No Meningismus. Chest/axilla: Normal chest wall appearance and motion. Nontender with no deformity. No lesions are appreciated. Cardiovascular: Regular rate and rhythm with a normal S1 and S2. No gallops, murmurs, or rubs. Normal PMI, no JVD. No pulse deficits. Respiratory: Lungs have equal breath sounds bilaterally, clear to auscultation and percussion. No rales, rhonchi or wheezes noted. No increased work of breathing, no retractions or nasal flaring. Abdomen/GI: Soft, non-tender, with normal bowel sounds. No distension or tympany. No guarding or rebound. No evidence of tenderness throughout. Back: No spinal tenderness. No costovertebral tenderness. Full range of motion. Male : Normal genitalia with no discharge or lesions. Skin: Warm, dry with normal turgor. Normal color with no rashes, no lesions, and no evidence of cellulitis. MS/ Extremity: Pulses equal, no cyanosis. Neurovascular intact. Full, normal range of motion. Neuro: Awake and alert, GCS 15, oriented to person, place, time, and situation. Cranial nerves II-XII grossly intact. Motor strength 5/5 in all extremities. Sensory grossly intact. Cerebellar exam normal. Normal gait. Psych: Awake, alert, with orientation to person, place and time. Behavior, mood, and affect are within normal limits. Vital Signs: 05:24 BP 186 / 77; Pulse 87; Resp 20; Temp 98.0(O); Pulse Ox 99% on R/A; Weight 72.12 kg (R); ao Height 5 ft. 8 in. (172.72 cm) (R); Pain 9/10; 07:36 BP 170 / 95; Pulse 102; Resp 16; Pulse Ox 99% on R/A; jl7 08:31 BP 165 / 89; Pulse 75; Resp 17; Temp 98.0; Pulse Ox 100% on R/A; Pain 9/10; sg 09:09 BP 159 / 72; Pulse 73; Resp 17; Pulse Ox 100% on R/A; Pain 6/10; sg 05:24 Body Mass Index 24.18 (72.12 kg, 172.72 cm) ao MDM: 05:57 Patient medically screened. naheed 06:16 Data reviewed: vital signs, nurses notes, lab test result(s), EKG, radiologic studies, naheed plain films. 12/13 05:31 Order name: Basic Metabolic Panel; Complete Time: 07:19 ao 12/13 05:31 Order name: CBC with Diff; Complete Time: 06:50 ao 12/13 05:31 Order name: Ckmb; Complete Time: 07:19 ao 12/13 05:31 Order name: CPK; Complete Time: 07:19 ao 12/13 05:31 Order name: LFT's; Complete Time: 07:19 ao 12/13 05:31 Order name: Magnesium; Complete Time: 07:19 ao 12/13 05:31 Order name: NT PRO-BNP; Complete Time: 07:19 ao 12/13 05:31 Order name: PT-INR; Complete Time: 06:50 ao 12/13 05:31 Order name: Ptt, Activated; Complete Time: 06:50 ao 12/13 05:31 Order name: Troponin (emerg Dept Use Only); Complete Time: 07:19 ao 12/13 05:31 Order name: XRAY Chest (1 view) ao 12/13 06:23 Order name: Lipase; Complete Time: 07:19 EDMS 12/13 05:31 Order name: EKG; Complete Time: 05:31 ao 12/13 05:31 Order name: Cardiac monitoring; Complete Time: 05:31 ao 12/13 05:31 Order name: EKG - Nurse/Tech; Complete Time: 05:32 ao 12/13 05:31 Order name: IV Saline Lock; Complete Time: 06:11 ao 12/13 05:31 Order name: Labs collected and sent; Complete Time: 06:11 ao 12/13 05:31 Order name: O2 Per Protocol; Complete Time: 05:33 ao 12/13 07:40 Order name: CONS Physician Consult EDMS 12/13 07:40 Order name: CONS Physician Consult EDMS 12/13 05:31 Order name: O2 Sat Monitoring; Complete Time: 05:33 ao Administered Medications: 06:31 Not Given (Given by EMS): Aspirin 81 mg PO once ao 06:31 Drug: Norvasc 5 mg Route: PO; ao 07:02 Follow up: Response: No adverse reaction ao 06:31 Drug: Lopressor 25 mg Route: PO; ao 07:02 Follow up: Response: No adverse reaction ao 06:31 Drug: Brilinta - Ticagrelor 90 mg Route: PO; ao 07:02 Follow up: Response: No adverse reaction ao 06:32 Drug: morphine 2 mg Route: IVP; Site: right upper arm; ao 07:03 Follow up: Response: No adverse reaction ao 07:03 Follow up: Response: No adverse reaction; Pain is decreased ao 06:33 Drug: Zofran 4 mg Route: IVP; Site: right upper arm; ao 07:03 Follow up: Response: No adverse reaction ao 07:01 Drug: HydrALAZINE 50 mg Route: PO; ao 07:30 Follow up: Response: No adverse reaction; Blood pressure is lowered jl7 07:34 Drug: Lovenox 40 mg Route: Sub-Q; Site: left lower abdomen; jl7 08:00 Follow up: Response: No adverse reaction [email or web address] 07:41 Drug: Magnesium Sulfate 1 grams Route: IVPB; Infused Over: 1 hrs; Site: right upper arm; 08:41 Follow up: IV Status: Completed infusion jl7 Disposition: 12/13/17 07:31 Hospitalization ordered by Ashu Connell for Observation. Preliminary diagnosis are Other chest pain, Essential (primary) hypertension, End stage renal disease, Hypomagnesemia, Anemia, unspecified. - Bed requested for Telemetry/MedSurg (observation). - Status is Observation. ss - Condition is Stable. - Problem is new. - Symptoms have improved. UTI on Admission? No Signatures: Dispatcher [employer] EDNM Wood Brock RN RN sg Anderson, Corey, MD MD cha Smirch, Shelby RN RN Dre Beltran RN RN Bill Zelaya RN RN 7 Abby Hutchins 3 Corrections: (The following items were deleted from the chart) 06:23 06:10 LIPASE+C.LAB.BRZ ordered. EDNM EDMS 08:25 07:31 Hospitalization Ordered by Ashu Connell MD for Observation. Preliminary diagnosis dh3 is Other chest pain; Essential (primary) hypertension; End stage renal disease; Hypomagnesemia; Anemia, unspecified. Bed requested for Telemetry/MedSurg (observation). Status is Observation. Condition is Stable. Problem is new. Symptoms have improved. UTI on Admission? No. naheed 09:23 08:25 12/13/2017 07:31 Hospitalization Ordered by Ashu Connell MD for Observation. ss Preliminary diagnosis is Other chest pain; Essential (primary) hypertension; End stage renal disease; Hypomagnesemia; Anemia, unspecified. Bed requested for Telemetry/MedSurg (observation). Status is Observation. Condition is Stable. Problem is new. Symptoms have improved. UTI on Admission? No. dh3
--- NOTE | 2017-12-13 07:32 | ER ---
Nurse's Notes [facility] Name: Julien Parikh Age: 67 yrs Sex: Male : 1950 Arrival Date: 12/13/2017 Time: 05:21 Bed 7 Private MD: Diagnosis: Other chest pain;Essential (primary) hypertension;End stage renal disease;Hypomagnesemia;Anemia, unspecified Presentation: 12/13 05:21 Presenting complaint: EMS states: Patient had chest pain for the whole night and woke ao up around 0200 with weakness in his legs. Pain described as 9/10. Patient took two nitro sublingual at home and EMS gave 4X 81 mg ASP. Transition of care: patient was not received from another setting of care. Onset of symptoms is unknown. Risk Assessment: Do you want to hurt yourself or someone else? Patient reports no desire to harm self or others. Initial Sepsis Screen: Does the patient meet any 2 criteria? No. Patient's initial sepsis screen is negative. Does the patient have a suspected source of infection? No. Patient's initial sepsis screen is negative. Care prior to arrival: None. 05:21 Method Of Arrival: EMS: [facility] ao 05:21 Acuity: PERRI 2 ao Historical: - Allergies: 05:28 PENICILLINS; ao - Home Meds: 05:28 Advair Diskus 250-50 mcg/dose Inhl dsdv 1 puff 2 times per day [Active]; aspirin 81 mg ao Oral chew 1 tab once daily [Active]; atorvastatin 80 mg Oral tab 1 tab nightly [Active]; BRILINTA 90 mg Oral tab 1 tab 2 times per day [Active]; carvedilol 25 mg Oral tab 1 tab 2 times per day [Active]; isosorbide mononitrate 60 mg Oral Tb24 1 tab once daily [Active]; hydralazine 50 mg Oral tab 2 tab 2 times per day [Active]; metoprolol tartrate 25 mg Oral tab 2 tabs 2 times per day [Active]; Norvasc 5 mg Oral tab 1 tab once daily [Active]; Ranexa 1,000 mg Oral Tb12 1 tab 2 times per day [Active]; Renagel 800 mg Oral tab 2 tabs 3 times per day [Active]; Renvela 800 mg Oral tab 2 tabs 3 times per day [Active]; Pepcid Oral [Active]; - PMHx: 05:28 Asthma; CHF; chronic kidney disease; COPD; CVA; Dialysis T-Th-Sat; ESRD; Hepatitis; ao Hypertension; L arm paralysis; L sided weakness from CVA; Myocardial infarction; triple bypass; - PSHx: 05:28 Unable to obtain; ao - Immunization history:: Adult Immunizations up to date. - Social history:: Smoking status: Patient/guardian denies using tobacco, Patient uses street drugs, marijuana, Patient/guardian denies using alcohol, but has a distant history of alcohol abuse, IV drugs. - Ebola Screening: : Patient negative for fever greater than or equal to 101.5 degrees Fahrenheit, and additional compatible Ebola Virus Disease symptoms Patient denies exposure to infectious person Patient denies travel to an Ebola-affected area in the 21 days before illness onset. - Family history:: not pertinent. Screenin:05 Nutritional screening: No deficits noted. Tuberculosis screening: No symptoms or risk ao factors identified. 06:05 Abuse screen: Denies threats or abuse. Denies injuries from another. Fall Risk None ao identified. Assessment: 06:08 General: Appears in no apparent distress. uncomfortable, Behavior is calm, cooperative, ao appropriate for age. Pain: Complains of pain in chest Pain does not radiate. Pain currently is 9 out of 10 on a pain scale. Quality of pain is described as stabbing, Pain began suddenly. Neuro: Level of Consciousness is awake, alert, obeys commands, Oriented to person, place, time, situation, Appropriate for age Moves all extremities. Full function Speech is normal, Facial symmetry appears normal, Pupils are PERRLA. Cardiovascular: Reports chest pain, Denies vomiting, Heart tones S1 S2 Capillary refill < 3 seconds Patient's skin is warm and dry. Respiratory: Airway is patent Respiratory effort is even, unlabored, Respiratory pattern is regular, symmetrical. GI: Abdomen is non-distended. : No signs and/or symptoms were reported regarding the genitourinary system. EENT: No signs and/or symptoms were reported regarding the EENT system. Derm: Skin is intact, Skin is normal, Skin temperature is warm. Musculoskeletal: No signs and/or symptoms reported regarding the musculoskeletal system. Range of motion: intact in all extremities. 07:00 Reassessment: Patient appears in no apparent distress at this time. Patient is alert, jl7 oriented x 3, equal unlabored respirations, skin warm/dry/pink. Pain: Complains of pain in mid-sternal area Pain radiates to left arm Pain currently is 9 out of 10 on a pain scale. Quality of pain is described as stabbing, Pain began suddenly, Is continuous. Cardiovascular: Reports chest pain, Heart tones S1 S2 present Patient's skin is warm and dry. 08:10 Reassessment: Patient appears in no apparent distress at this time. pt requesting pain sg medication at this time, pt admitted but no floor orders have been entered at this time, to evaluate pt. 08:28 Reassessment: at bedside with pt at this time. sg 08:40 Reassessment: a call has been made to receiving nurse, nurse unavailable per Glo JONAS, sg awaiting a call back from Zina JONAS. pt on the call light, requests food, pt instructed on bed assignment and the diet orders but no tray has been delivered to the department yet, pt stated understanding, pt reports CP a 8/10 at this time, a nitro SL 0.4 tablet has been administered as ordered per , will reassess. 09:03 Reassessment: Patient appears in no apparent distress at this time. Patient is alert, sg oriented x 3, equal unlabored respirations, skin warm/dry/pink. at bedside at this time. Vital Signs: 05:24 BP 186 / 77; Pulse 87; Resp 20; Temp 98.0(O); Pulse Ox 99% on R/A; Weight 72.12 kg (R); ao Height 5 ft. 8 in. (172.72 cm) (R); Pain 9/10; 07:36 BP 170 / 95; Pulse 102; Resp 16; Pulse Ox 99% on R/A; jl7 08:31 BP 165 / 89; Pulse 75; Resp 17; Temp 98.0; Pulse Ox 100% on R/A; Pain 9/10; sg 09:09 BP 159 / 72; Pulse 73; Resp 17; Pulse Ox 100% on R/A; Pain 6/10; sg 05:24 Body Mass Index 24.18 (72.12 kg, 172.72 cm) ao ED Course: 05:21 Patient arrived in ED. ao 05:24 Triage completed. ao 05:25 Arm band placed on right wrist. Patient placed in an exam room, on a stretcher, on ao labor delivery specialist, on pulse oximetry, Patient notified of wait time. 05:56 Rigo Parsons MD is Attending Physician. naheed 06:05 Patient has correct armband on for positive identification. threading machine setter on. Pulse ao ox on. NIBP on. 06:05 Inserted 18 gauge 10 cm midline to right upper brachial vein on first attempt. Line fc with good blood return and it flushes well. Blood collected and sent to lab. 06:26 X-ray completed. Portable x-ray completed in exam room. Patient tolerated procedure kw well. 06:38 Patient maintains SpO2 saturation greater than 95% on room air. ao 06:45 XRAY Chest (1 view) In Process Unspecified. EDMS 07:26 Bill Khan RN is Primary Nurse. jl7 07:28 Ashley Brannon MD is Hospitalizing Provider. naheed 07:28 Ashu Connell MD is Hospitalizing Provider. naheed 09:15 No provider procedures requiring assistance completed. Patient admitted, IV remains in jl7 place. intact, No redness/swelling at site. Administered Medications: 06:31 Not Given (Given by EMS): Aspirin 81 mg PO once ao 06:31 Drug: Norvasc 5 mg Route: PO; ao 07:02 Follow up: Response: No adverse reaction ao 06:31 Drug: Lopressor 25 mg Route: PO; ao 07:02 Follow up: Response: No adverse reaction ao 06:31 Drug: Brilinta - Ticagrelor 90 mg Route: PO; ao 07:02 Follow up: Response: No adverse reaction ao 06:32 Drug: morphine 2 mg Route: IVP; Site: right upper arm; ao 07:03 Follow up: Response: No adverse reaction ao 07:03 Follow up: Response: No adverse reaction; Pain is decreased ao 06:33 Drug: Zofran 4 mg Route: IVP; Site: right upper arm; ao 07:03 Follow up: Response: No adverse reaction ao 07:01 Drug: HydrALAZINE 50 mg Route: PO; ao 07:30 Follow up: Response: No adverse reaction; Blood pressure is lowered jl7 07:34 Drug: Lovenox 40 mg Route: Sub-Q; Site: left lower abdomen; jl7 08:00 Follow up: Response: No adverse reaction jl7 07:41 Drug: Magnesium Sulfate 1 grams Route: IVPB; Infused Over: 1 hrs; Site: right upper arm; 08:41 Follow up: IV Status: Completed infusion jl7 Outcome: 07:31 Decision to Hospitalize by Provider. [facility] 09:15 Admitted to Med/surg accompanied by tech, via wheelchair. jl7 09:15 Condition: stable 09:15 Discharge instructions given to patient, Instructed on the need for admit, Demonstrated understanding of instructions. 09:23 Patient left the ED. ss Signatures: Dispatcher [employer] EDMS Wood Brock RN RN Rigo Greene MD MD cha Chretien, Felicia RN Janene Sagastume RN RN ss Whitley, Kimberlee kw Ortiz, Alex, RN RN ao Leal, Jahala, RN RN jl7 Corrections: (The following items were deleted from the chart) 05:30 05:21 Presenting complaint: EMS states: Patient had chest pain for the whole night and ao woke up around 0200 with weakness in his legs. Pain described as 9/10. ao
[2017-12-13] MEDS ORDERED: ENOXAPARIN 40 MG/0.4 ML SQ ONE (07:36)
[2017-12-13] MEDS ORDERED: NITROGLYCERIN 0.4 MG/TAB SL PRN (08:16)
[2017-12-13] MEDS ORDERED: ACETAMINOPHEN 500 MG TAB PO PRN (08:16)
[2017-12-13] MEDS ORDERED: MANNITOL 25% 12.5 GM/50 ML VIAL IV PRN (08:19)
[2017-12-13] MEDS ORDERED: NA CHLORIDE 0.9% 1,000 ML IV PRN (08:19)
[2017-12-13] MEDS ORDERED: NITROGLYCERIN 0.4 MG/TAB SL ONE (08:50)
--- NOTE | 2017-12-13 08:51 | RAD REPORT ---
EXAM DESCRIPTION: RAD - Chest Single View - 12/13/2017 6:52 am CLINICAL HISTORY: CHEST PAIN Chest pain. COMPARISON: Chest Single View dated 10/28/2017; Chest Single View dated 10/26/2017; Chest Single View dated 09/21/2017; Chest Single View dated 08/29/2017 FINDINGS: Portable technique limits examination quality. The lungs are grossly clear. The heart is normal in size. Right-sided venous catheter has tip in the SVC. Sternotomy wires present. IMPRESSION: No acute intrathoracic process suspected.
[2017-12-13] MEDS ORDERED: ALBUMIN HUMAN 25% 50 ML IV SCH (09:00)
[2017-12-13] MEDS ORDERED: TICAGRELOR 90 MG TABLET PO SCH (09:00)
[2017-12-13] MEDS: MORPHINE 4 MG/ML SYR IV PRN ×3 (10:39→23:25)
[2017-12-13] MEDS ORDERED: HOME MED 1 EA UNK (Ipratropium/Albuterol Sulfate [Combivent Respimat 20-100 Mcg] 1 PUFF) IH PRN (15:57)
[2017-12-13] MEDS: SEVELAMER CARBONATE 800 MG TABLET PO SCH (17:00)
[2017-12-13] MEDS: CARVEDILOL 25 MG TAB PO SCH (17:58)
[2017-12-13] MEDS: EPOETIN ALFA 10,000 UNIT/ML VIAL IV SCH (18:06)
[2017-12-13] MEDS ORDERED: HOME MED 1 EA UNK (Ranolazine [Ranexa] 1,000 MG) PO SCH (21:00)
[2017-12-13] MEDS: HOME MED 1 EA UNK (Budesonide/Formoterol Fumarate [Symbicort 160-4.5 Mcg Inhaler] 2 PUFF) IH SCH (21:00)
[2017-12-13] MEDS: HYDRALAZINE HCL 25 MG TABLET PO SCH (21:06)
[2017-12-13] MEDS: ATORVASTATIN 80 MG TAB PO SCH (21:06)
[2017-12-13] MEDS: TICAGRELOR 90 MG TABLET PO SCH (21:07)
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
[2017-12-14 05:24] VITALS: BMI 23.6
[2017-12-14] MEDS: CARVEDILOL 25 MG TAB PO SCH ×2 (05:31→17:19)
[2017-12-14] MEDS: ENOXAPARIN 30 MG/0.3 ML SQ SCH (05:32)
[2017-12-14 06:14] LABS: Absolute Lymphocytes (CBC) 0.3 K/uL (0.7-4.9); Absolute Monocytes 0.6 K/uL (0.1-1.3); Absolute Neutrophil 8.3 K/uL (1.8-8.0); Basophils % 0.5 % (0-1.3); Eosinophils % 0.1 % (0-4.4); Lymphocytes % 3.5 % (15.3-44.8); MCH 34.4 pg (27.0-35.0); MCV 98.4 fL (80-100); MPV 10.7 fL (7.6-11.3); Monocytes % 6.5 % (3.3-12.3); RBC Red Blood Cell Count 3.15 M/uL (4.33-5.43)
[2017-12-14 07:48] LABS: Potassium 6.4 mmol/L (3.5-5.1)
[2017-12-14] MEDS ORDERED: SODIUM BICARB 50 MEQ/50ML VIAL IV ONE (08:33)
[2017-12-14] MEDS ORDERED: GLUCAGON 1 MG/VIAL IM PRN (08:33)
[2017-12-14] MEDS ORDERED: CALCIUM GLUC 10% INJ 4.65 MEQ in NA CHLORIDE 0.9% 100 ML IV ONE (08:33)
[2017-12-14] MEDS ORDERED: D50W 25 GM/50 ML SYRINGE IV PRN ×2 (08:33)
[2017-12-14] MEDS ORDERED: INSULIN -REGULAR HUMAN 50 UNIT/0.5 ML ML IV ONE (08:35)
[2017-12-14] MEDS ORDERED: NA CHLORIDE 0.9% 500 ML IV ONE (08:36)
[2017-12-14] MEDS ORDERED: ISOSORBIDE MONO SR 30 MG TAB PO SCH (09:00)
[2017-12-14] MEDS: HYDRALAZINE HCL 25 MG TABLET PO SCH ×2 (09:00→21:00)
[2017-12-14] MEDS: HOME MED 1 EA UNK (Budesonide/Formoterol Fumarate [Symbicort 160-4.5 Mcg Inhaler] 2 PUFF) IH SCH ×2 (09:00→21:00)
[2017-12-14] MEDS: ASPIRIN 81 MG CHEWABLE TABLET PO SCH (09:00)
[2017-12-14] MEDS: TICAGRELOR 90 MG TABLET PO SCH ×2 (09:00→21:32)
--- NOTE | 2017-12-14 09:18 | RAD REPORT ---
EXAM DESCRIPTION: US - Abdomen Exam Complete - 12/14/2017 8:53 am CLINICAL HISTORY: Chest pain COMPARISON: CT study June 2017 FINDINGS: Gallbladder is absent. No mass or abnormal fluid collection in the gallbladder fossa. Comm on bile duct is normal with no common duct stone identified. The liver and spleen show no suspicious findings. The pancreas is obscured No acute hydronephrosis. No solid mass identifiable. Approximately 15 millimeter cystic area lower po le left kidney is probably a prominent calyx. A parenchymal cyst is possible. Lower pole calculus see n on the June study is still present on this examination. The 15 millimeter partially exophytic m ass lower pole left kidney, presumed to be high protein content cyst on the CT study, is not clearly defined on this examination. A new or enlarging left renal finding is not suspected. Aorta and IVC are mostly obscured. No ascites or bulky lymphadenopathy. IMPRESSION: Patient is status post cholecystectomy. No biliary tree abnormality. Nonacute findings are detailed in the body of the report. Significant change from June 2017 is no t suspected. Prominent bowel gas precluded assessment of the pancreas, aorta and IVC.
[2017-12-14] MEDS: SEVELAMER CARBONATE 800 MG TABLET PO SCH ×3 (09:58→17:19)
[2017-12-14 10:28] LABS: Blood Morphology Comment NOT SEEN (NOT SEEN); Platelet Estimate ADEQ
[2017-12-14] MEDS: SUCRALFATE 1GM/10ML UCUP FT SCH ×3 (11:30→21:00)
--- NOTE | 2017-12-14 12:01 | CON ---
Identification: A 67-year-old man. Chief Complaint: Chest pain. History Of Present Illness: Mr. Parikh has been getting lots and lots of chest pain. He had hours of it. Last June, we did a workup for this. The stress test indicated he had lots of ischemia, but a cardiac cath in June of this year showed findings very different from what the stress test would have suggested. He has very good circulation to the bottom part of his heart. Normal ejection fraction. When he has chest pain, there are not any EKG changes. He does not seem to get any relie f with nitroglycerin. No amount of increase of antianginal medications have made any difference. Ap parently he has not been taking an antacid medicine and I think it is at least worth a try to see if that helps. Also I am not sure if he has ever had his gallbladder looked at. I think an ultrasound of the abdomen might be useful. CAT scans have been done, but they can obviously miss problems in th e biliary tree and gallstone sometimes, so it is worth taking a look because his chest pain does not seem to be CAD even though he has severe CAD. Physical Examination: General: He is alert, oriented, pleasant. He is not in distress. Lungs: Clear. Heart: Reveals an S4 gallop. Abdomen: Soft. Extremities: palpable distal pulses. Mr. Parikh has numerous medical problems including end-stage renal disease, hypertension, previous b ypass surgery. I think presently we are not dealing with unstable angina. MARYAM/NELLA Voice ID: [id number] Report ID: [id number]
[2017-12-14] MEDS: TRAMADOL HCL 50 MG TAB PO PRN ×2 (14:07→21:32)
[2017-12-14] MEDS: PANTOPRAZOLE 40MG TABLET PO SCH (17:19)
--- NOTE | 2017-12-14 19:12 | PN ---
Date of Progress Note: 12/14/2017 Subjective: The patient is seen and examined. Chart reviewed in case discussed with RN. The patien t states he is still having chest pain; however, when talking to the nurse, he does have left shoulde r pain that is the extremity that is contracted from his stroke. The patient otherwise doing well. Review of Systems: Negative except as above. Medications: List reviewed. Physical Examination: Vital Signs: Temperature 99.5, heart rate 87, blood pressure 83/54, respirations 22, O2 95% on room air. General: Awake, alert, oriented x3. Some mild distress. Elderly male, ill-appearing. CV: S1, S2. No murmurs. Peripheral pulses present. Respiratory: Moving air well bilaterally. No wheezing or stridor. Gastrointestinal: Abdomen is soft, nontender, nondistended. Positive bowel sounds. Extremities: No clubbing, cyanosis, or edema. Neuro: The patient has left upper extremity contracture. Laboratory Data: Sodium 137, potassium 6.4, chloride 106, CO2 24, BUN 34, creatinine 4.7, glucose 10 4, calcium 8.2. Troponins less than 0.02 x3. Triglycerides 97, cholesterol 136, LDL 55, HDL 62. WB C 9.2, H and H 7.8 and 31, MCV 98.4, platelets 186, neutrophils 89%, 1% bands. Abdominal ultrasound shows status post cholecystectomy. No biliary tree abnormality. No acute findings including a 15 mm cystic area of the left lower pole. Left kidney has probably prominent elijah, parenchymal cyst, pos sible lower pole calculus seen on the June study still present on this examination, a 15 mm parti ally exophytic mass lower pole left kidney presumed to be high-protein content cyst on the CT study, has not clearly defined on this examination. No new or enlarging left renal findings suspected. Pro minent bowel gas pattern precluded assessment of the pancreas, aorta, and IVC. Assessment And Plan: A 67-year-old male with: 1.Chest pain, unstable angina, acute coronary syndrome ruled out. Appreciate Dr. Alanis' input. Ma y be atypical chest pain. He does report left shoulder musculoskeletal pain related to his contractu re and may have gastroesophageal reflux disease. Has been started on trial of PPI. 2.Hypotension. Blood pressure is systolic in the 80s. Initially, his blood pressure was stable whe n he was admitted. The patient received 500 mL bolus. We will continue to monitor blood pressure an d monitor for signs of shock. 3.Hyperkalemia. The patient has a potassium level of 6.4. He was given calcium gluconate, sodium b icarbonate, insulin, and dextrose to correct the potassium level. We will recheck potassium level 2 hours after treatment and we will start on Kayexalate if still elevated. The patient will be going f or dialysis again tomorrow. 4.Possible gastroesophageal reflux disease. Trial of PPI. Abdominal ultrasound does not reveal any bile duct stones. 5.End-stage renal disease, on hemodialysis. The patient receives dialysis Tuesday, , and . Appreciate Dr. Fitzgerald's input. 6.Chronic obstructive pulmonary disease, chronic bronchitis, stable. 7.Congestive heart failure, diastolic dysfunction. We will continue fluid restriction and monitor I 's and O's, daily weights. 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 9.Coronary artery disease status post coronary artery bypass graft, [place] artery and [place] heart w ith angina. The patient on maximal medical therapy. Had recent heart catheterization in June. 10.Hyperlipidemia, mixed. We will continue statin. 11.Essential hypertension, stable. 12.History of hepatitis C. 13.Gastrointestinal and deep venous thrombosis prophylaxis with PPI and Lovenox renally dosed. Plan: Monitor blood pressure closely, watch for signs of shock, follow up on potassium level. If co ntinues to improve and blood pressure is improving, may be discharged in a.m. /NELLA Voice ID: [id number] Report ID: [id number]
[2017-12-14] MEDS: MORPHINE 4 MG/ML SYR IV PRN (19:13)
[2017-12-14] MEDS: ATORVASTATIN 80 MG TAB PO SCH (21:31)
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
--- NOTE | 2017-12-14 22:55 | P.PN ---
Date of Service: 12/14/17 Vital Signs Temp Pulse Resp BP Pulse Ox 97.2 F 74 18 100/54 L 96 12/14/17 20:00 12/14/17 20:00 12/14/17 20:00 12/14/17 20:00 12/14/17 20:00 Medications Acetaminophen (Tylenol -Extra Strength) 500 mg PO Q4H PRN PRN Reason: [id number] Stop: 01/12/18 08:17 Aspirin (Aspirin Chewable) 81 mg PO DAILY [facility] Stop: 01/13/18 09:01 Last Admin: 12/14/17 09:00 Dose: 81 mg Atorvastatin Calcium (Lipitor) 80 mg PO BEDTIME [facility] Stop: 01/12/18 21:01 Last Admin: 12/14/17 21:31 Dose: 80 mg Carvedilol (Coreg) 25 mg PO BID 6AM 6PM [facility] Stop: 01/12/18 18:01 Last Admin: 12/14/17 17:19 Dose: 25 mg Dextrose (Dextrose 50% Syringe) 12.5 gm IV PRN PRN; Protocol PRN Reason: HYPOGLYCEMIA Stop: 01/13/18 08:34 Last Admin: 12/14/17 09:58 Dose: 12.5 gm Enoxaparin Sodium (Lovenox 30 Mg Inj) 30 mg SQ [id number] [facility] Stop: 01/13/18 06:01 Last Admin: 12/14/17 05:32 Dose: 30 mg Epoetin Elvis (Procrit) 10,000 unit IV EVERY HD [facility] Stop: 01/12/18 08:31 Last Admin: 12/13/17 18:06 Dose: 10,000 unit Glucagon (Glucagen) 1 mg IM 1X PRN; Protocol PRN Reason: HYPOGLYCEMIA Stop: 01/13/18 08:34 Heparin Sodium (Porcine) (Heparin 1,000 Units/Ml) 6,000 unit IV EVERY HD PRN PRN Reason: FLUSH AFTER EACH USE Stop: 01/12/18 08:20 Last Admin: 12/13/17 18:06 Dose: 6,000 unit Home Med (Budesonide/Formoterol Fumarate [Symbicort 160-4.5 Mcg Inhaler]) 2 puff IH BID [facility] Stop: 01/12/18 21:01 Last Admin: 12/14/17 21:00 Dose: Not Given Home Med (Ipratropium/Albuterol Sulfate [Combivent Respimat 20-100 Mcg]) 1 puff IH Q6HP PRN PRN Reason: SHORTNESS OF BREATH Albumin Human (Albumin 25%) 50 mls @ 100 mls/hr IV EVERY HD [facility] Stop: 01/12/18 09:01 Isosorbide Mononitrate (Imdur) 30 mg PO DAILY [facility] Stop: 01/14/18 09:01 Mannitol (Mannitol 12.5 Gm/50 Ml Vial) 12.5 gm IV EVERY HD PRN PRN Reason: BP support at hemodialysis Stop: 01/12/18 08:20 Morphine Sulfate (Morphine Sulfate) 4 mg IV Q4H PRN PRN Reason: PAIN MODERATE TO SEVERE Stop: 01/12/18 08:17 Last Admin: 12/14/17 19:13 Dose: 4 mg Nitroglycerin (Nitrostat) 0.4 mg SL UD PRN PRN Reason: CHEST PAIN Stop: 01/12/18 08:17 Last Admin: 12/13/17 08:48 Dose: 0.4 tab.sl Pantoprazole Sodium (Protonix Tab) 40 mg PO BIDAC [facility] Stop: 01/13/18 16:31 Last Admin: 12/14/17 17:19 Dose: 40 mg Ranolazine (Ranexa) 1,000 mg PO BID [facility] Stop: 01/12/18 21:01 Last Admin: 12/14/17 21:32 Dose: 1,000 mg Sevelamer Carbonate (Renvela) 800 mg PO TIDWM [facility] Stop: 01/12/18 17:01 Last Admin: 12/14/17 17:19 Dose: 800 mg Sodium Chloride (Normal Saline Flush) 10 ml IV BID [facility] Stop: 01/12/18 09:01 Last Admin: 12/14/17 21:33 Dose: 10 ml Sucralfate (Carafate Liq) 1 gm FT ACHS [facility] Stop: 01/13/18 11:31 Last Admin: 12/14/17 21:00 Dose: 1 gm Ticagrelor (Brilinta) 90 mg PO BID [facility] Stop: 01/12/18 21:01 Last Admin: 12/14/17 21:32 Dose: 90 mg Tramadol HCl (Ultram) 50 mg PO TID PRN PRN Reason: PAIN Stop: 01/13/18 13:13 Last Admin: 12/14/17 21:32 Dose: 50 mg Assessment/ Plan: Nephrology. Abdominal pain/ discomfort with associated diarrhea. CPS improved without CP or SOB. No acute events overnight. Vitals, medications, blood work and imaging reviewed in the chart. General: Oriented x3, Cooperative HEENT: Atraumatic, Mucous membr. moist/pink Neck: Supple Respiratory: Clear to auscultation bilaterally Cardiovascular: No edema, Regular rate/rhythm, No rubs Gastrointestinal: Normal bowel sounds, Non-distended, No guarding Musculoskeletal: No clubbing, No contractures Integumentary: No rashes Neurological: Normal speech Blood work reviewed in the chart. Hgb 10.1 Imagings Data: EXAM DESCRIPTION: RAD - Chest Single View - 12/13/2017 6:52 am CLINICAL HISTORY: CHEST PAIN Chest pain. COMPARISON: Chest Single View dated 10/28/2017; Chest Single View dated 2017; Chest Single View dated 09/21/2017; Chest Single View dated 08/29/2017 FINDINGS: Portable technique limits examination quality. The lungs are grossly clear. The heart is normal in size. Right-sided venous catheter has tip in the SVC. Sternotomy wires present. IMPRESSION: No acute intrathoracic process suspected. Conclusions/Impression: A/ ESRD on HD. Hyperkalemia. HTN with CKD. A/C Diastolic CHF. Anemia in CKD. RODOLFO/ Secondary HyperPTH. Hypomagnesemia. Poor compliance with dialysis. P/ Continue current POC and Medications. Arrange for acute HD tomorrow. Follow up with GI. Low sodium diet. AM labs. Daily weight.
[2017-12-15] MEDS: MORPHINE 4 MG/ML SYR IV PRN ×2 (00:30→04:34)
[2017-12-15] MEDS: IPRATROPIUM BROM 0.5MG/2.5ML NEB PRN ×3 (01:21→14:20)
[2017-12-15] MEDS: ALBUTEROL 2.5 MG/3 ML NEB SOL NEB PRN ×3 (01:21→14:20)
[2017-12-15] MEDS: ENOXAPARIN 30 MG/0.3 ML SQ SCH (05:56)
[2017-12-15] MEDS: CARVEDILOL 25 MG TAB PO SCH (06:00)
[2017-12-15 06:30] LABS: Absolute Lymphocytes (CBC) 1.1 K/uL (0.7-4.9); Absolute Monocytes 0.8 K/uL (0.1-1.3); Absolute Neutrophil 3.2 K/uL (1.8-8.0); Basophils % 0.5 % (0-1.3); Eosinophils % 2.6 % (0-4.4); Hematocrit 29.6 % (39.6-49.0); Lymphocytes % 20.7 % (15.3-44.8); MCH 33.9 pg (27.0-35.0); MCV 99.6 fL (80-100); MPV 10.2 fL (7.6-11.3); Monocytes % 15.8 % (3.3-12.3); RBC Red Blood Cell Count 2.98 M/uL (4.33-5.43)
[2017-12-15 06:42] LABS: Albumin 3.3 g/dL (3.4-5.0); Bilirubin Total 0.7 mg/dL (0.2-1.0); Magnesium 1.6 mg/dL (1.8-2.4); Phosphorus 4.3 mg/dL (2.5-4.9); Potassium 4.5 mmol/L (3.5-5.1); Protein, Total 6.9 g/dL (6.4-8.2); Uric Acid 5.4 mg/dL (3.5-7.2)
[2017-12-15] MEDS: SUCRALFATE 1GM/10ML UCUP FT SCH ×2 (07:30→11:30)
[2017-12-15] MEDS: PANTOPRAZOLE 40MG TABLET PO SCH (08:09)
[2017-12-15] MEDS: SEVELAMER CARBONATE 800 MG TABLET PO SCH ×2 (08:09→12:00)
[2017-12-15 08:50] VITALS: TEMP 97
[2017-12-15] MEDS: HOME MED 1 EA UNK (Budesonide/Formoterol Fumarate [Symbicort 160-4.5 Mcg Inhaler] 2 PUFF) IH SCH (09:00)
[2017-12-15] MEDS ORDERED: ISOSORBIDE MONO SR 30 MG TAB PO SCH (09:00)
[2017-12-15] MEDS: ASPIRIN 81 MG CHEWABLE TABLET PO SCH (09:00)
[2017-12-15] MEDS: EPOETIN ALFA 10,000 UNIT/ML VIAL IV SCH (09:59)
--- NOTE | 2017-12-15 10:56 | PN ---
Mr. Parikh has much less pain today. I think he can be attributed to the proton pump inhibitor and Carafate therapy. He does not have unstable angina. I think he could stop taking the Brilinta. I d o not think it is contributing anything at this point. MARYAM/NELLA Voice ID: [id number] Report ID: [id number]
--- NOTE | 2017-12-15 11:50 | P.DS ---
Admission Date: 12/13/17 Discharge Date: 12/15/17 Primary Care Provider: Dr. Carballo([facility]); Nephrology-Dr. Fitzgerald Disposition: ROUTINE DISCHARGE Discharge Condition: GOOD Reason for Admission: CP Consultations: Cardiology-Dr. Alanis Nephrology-Dr. Fitzgerald Procedures: Abdominal ultrasound: COMPARISON: CT study June 2017 FINDINGS: Gallbladder is absent. No mass or abnormal fluid collection in the gallbladder fossa. Common bile duct is normal with no common duct stone identified. The liver and spleen show no suspicious findings. The pancreas is obscured No acute hydronephrosis. No solid mass identifiable. Approximately 15 millimeter cystic area lower pole left kidney is probably a prominent calyx. A parenchymal cyst is possible. Lower pole calculus seen on the June study is still present on this examination. The 15 millimeter partially exophytic mass lower pole left kidney, presumed to be high protein content cyst on the CT study , is not clearly defined on this examination. A new or enlarging left renal finding is not suspected. Aorta and IVC are mostly obscured. No ascites or bulky lymphadenopathy. IMPRESSION: Patient is status post cholecystectomy. No biliary tree abnormality. Nonacute findings are detailed in the body of the report. Significant change from June 2017 is not suspected. Prominent bowel gas precluded assessment of the pancreas, aorta and IVC. - Problems (1) Anemia Onset Date: 12/14/17 Current Visit: Yes Status: Chronic Qualifiers: Anemia type: due to chronic kidney disease Chronic kidney disease stage: on chronic dialysis Qualified Code(s): N18.6 - End stage renal disease; D63.1 - Anemia in chronic kidney disease; Z99.2 - Dependence on renal dialysis (2) Chest pain Onset Date: 12/14/17 Current Visit: Yes Status: Acute Qualifiers: Chest pain type: other chest pain Qualified Code(s): R07.89 - Other chest pain; R07.8 - Other chest pain (3) Chronic obstructive lung disease COPD Onset Date: 07/01/17 Current Visit: No Status: Chronic (4) Congestive heart failure Onset Date: 01/19/17 Current Visit: No Status: Chronic (5) ESRD (end stage renal disease) on dialysis Onset Date: 07/01/17 Current Visit: No Status: Chronic (6) History of CVA (cerebrovascular accident) Onset Date: 07/01/17 Current Visit: No Status: Chronic (7) History of coronary artery bypass graft Onset Date: 07/01/17 Current Visit: No Status: Chronic (8) Hyperlipidemia Onset Date: 01/19/17 Current Visit: No Status: Chronic (9) GERD (gastroesophageal reflux disease) Current Visit: Yes Status: Suspected Qualifiers: Esophagitis presence: esophagitis presence not specified Qualified Code(s) : K21.9 - Gastro-esophageal reflux disease without esophagitis (10) Hepatitis C Current Visit: Yes Status: Chronic Qualifiers: Viral hepatitis chronicity: chronic Hepatic coma status: without hepatic coma Qualified Code(s): B18.2 - Chronic viral hepatitis C Brief History of Present Illness: 67-year-old male presented emergency room with chest pain. Patient with multiple problems including end-stage renal disease on dialysis, CHF, COPD, anemia of chronic disease. Patient was evaluated in the emergency room. He was admitted for evaluation. Nephrology and Cardiology were consulted. Hospital Course: During the course of his stay the patient was evaluated for his chest pain. Cardiology was consulted. Cardiology reported that in June of last year he had a stress test indicating ischemia. A cardiac catheterization that followed of this year showed very different findings from stress test. He had good circulation to the bottom of his heart. He had a normal ejection fraction. No EKG changes were noted. Chest pain not relieved with nitroglycerin or anti anginal medication. Cardiology suspects GI related issue. Patient was given a trial of Protonix and Carafate. Chest pain improved. No further intervention was recommended by Cardiology. At discharge he will continue with Protonix 40 mg 1 pill twice daily and Carafate 3 times a day. Recommendation is for the patient follow up with GI as an outpatient to assess. Cardiology also recommends to discontinue Brilinta at discharge. Patient may continue with his medications of Ranexa 1000 mg 1 pill twice daily and isosorbide mononitrate ER 60 mg daily. Patient has end-stage renal disease. He will continue with dialysis. Nephrology was consulted. Blood pressures were low during his stay. Blood pressures improved. Patient taking multiple medications for blood pressure. Patient may need a hold his blood pressure medication if blood pressure systolic less than 120. This can be further monitored and addressed by nephrology. Patient has COPD. He will continue with his medication-Symbicort 160 mcg 2 puffs twice daily and Combivent to be used as needed. Patient has hyperlipidemia. He will continue with his medication--Lipitor 80 mg daily. Patient has anemia of chronic disease. Hemoglobin remained stable. This can be monitored by nephrology as an outpatient. Patient has HTN. He is on multiple medication including Norvasc 5 mg daily, Coreg 25 mg one pill twice daily and Hydralazine 50 mg one pill twice daily. He is to monitor his BP daily. He will need to hold his BP medication if BP sys less than 120. Further adjustment in his medication can be done by nephrology. Vital Signs/Physical Exam: Temp Pulse Resp BP Pulse Ox 97 F 81 18 110/86 96 12/15/17 08:00 12/15/17 08:00 12/15/17 08:00 12/15/17 08:00 12/15/17 08:00 General: Alert, In no apparent distress, Oriented x3, Cooperative HEENT: Atraumatic Neck: Supple Respiratory: Clear to auscultation bilaterally, Normal air movement Cardiovascular: Normal pulses, Regular rate/rhythm Gastrointestinal: Normal bowel sounds, Soft and benign, Non-distended, No tenderness, No masses, No rebound, No guarding Musculoskeletal: No erythema, No tenderness, No warmth Integumentary: No tenderness/swelling, No erythema, No warmth, No cyanosis Neurological: Normal speech, Normal strength at 5/5 x4 extr, Normal tone, Normal affect Laboratory Data at Discharge: WBC 5.2 K/uL (4.3-10.9) D 12/15/17 06:00 Hgb 10.1 g/dL (13.6-17.9) L 12/15/17 06:00 Hct 29.6 % (39.6-49.0) L 12/15/17 06:00 Plt Count 135 K/uL (152-406) L D 12/15/17 06:00 PT 10.9 SECONDS (9.5-12.5) 12/13/17 06:05 INR 0.92 12/13/17 06:05 APTT 28.4 SECONDS (24.3-36.9) 12/13/17 06:05 Sodium 137 mmol/L (136-145) 12/15/17 06:00 Potassium 4.5 mmol/L (3.5-5.1) 12/15/17 06:00 BUN 48 mg/dL (7-18) H 12/15/17 06:00 Creatinine 6.40 mg/dL (0.55-1.3) H* D 12/15/17 06:00 Glucose 103 mg/dL (74-106) 12/15/17 06:00 Uric Acid 5.4 mg/dL (3.5-7.2) 12/15/17 06:00 Phosphorus 4.3 mg/dL (2.5-4.9) 12/15/17 06:00 Magnesium 1.6 mg/dL (1.8-2.4) L 12/15/17 06:00 Total Bilirubin 0.7 mg/dL (0.2-1.0) 12/15/17 06:00 AST 76 U/L (15-37) H 12/15/17 06:00 ALT 56 U/L (12-78) 12/15/17 06:00 Alkaline Phosphatase 37 U/L (45-117) L D 12/15/17 06:00 Troponin I < 0.02 ng/mL (0.0-0.045) 12/13/17 16:42 Triglycerides 97 mg/dL (<150) 12/14/17 06:53 Cholesterol 136 mg/dL (<200) 12/14/17 06:53 HDL Cholesterol 62 mg/dL (40-60) H 12/14/17 06:53 Cholesterol/HDL Ratio 2.19 12/14/17 06:53 Lipase Cancelled 12/13/17 06:10 Home Medications: Atorvastatin Calcium [Lipitor*] 80 mg PO BEDTIME 10/20/14 Ipratropium/Albuterol Sulfate [Combivent Respimat 20-100 Mcg] 1 puff IH Q6HP PRN 10/20/14 Aspirin Chewable [Aspirin Chewable*] 81 mg PO DAILY 12/17/16 Isosorbide Mononitrate [Isosorbide Mononitrate ER] 60 mg PO DAILY 12/17/16 Sevelamer Carbonate [Renvela*] 800 mg PO TID 05/29/17 Amlodipine Besylate [Norvasc] 5 mg PO DAILY 07/01/17 Budesonide/Formoterol Fumarate [Symbicort 160-4.5 Mcg Inhaler] 2 puff IH BID Carvedilol 25 mg PO BID 07/01/17 Hydralazine [Apresoline*] 50 mg PO BID #60 tab 08/30/17 Ranolazine [Ranexa] 1,000 mg PO BID #60 tab.er.12h 08/30/17 Pantoprazole [Protonix Tab*] 40 mg PO BIDAC #60 tab 12/15/17 Sucralfate [Carafate*] 10 ml PO ACHS #90 ucup 12/15/17 New Medications: Pantoprazole [Protonix Tab*] 40 mg PO BIDAC #60 tab Sucralfate [Carafate*] 10 ml PO ACHS #90 ucup Patient Discharge Instructions: 1. Patient will need to follow up with his PCP in one week. 2. Patient presented with chest pain. Patient has had previous workup including heart catheterization showing good circulation. Cardiology recommended no further intervention. Cardiology felt chest pain related to GI. Patient responding well to medication. At discharge he will continue with Protonix 40 mg 1 pill twice daily and Carafate 1 g with every meal. Recommendations for the patient follow up with GI as an outpatient to further evaluate. Cardiology recommends to discontinue Brilinta. Patient may continue with Ranexa and isosorbide mononitrate. 3. Patient has end-stage renal disease. He will continue with dialysis. Nephrology was consulted. Blood pressures were low during his stay. Blood pressures improved. Patient taking multiple medications for blood pressure. Patient may need a hold his blood pressure medication if blood pressure systolic less than 120. This can be further monitored and addressed by nephrology. 4. Patient has COPD. He will continue with his medication-Symbicort 160 mcg 2 puffs twice daily and Combivent to be used as needed. 5. Patient has hyperlipidemia. He will continue with his medication--Lipitor 80 mg daily. 6. Patient has anemia of chronic disease. Hemoglobin remained stable. This can be monitored by nephrology as an outpatient. 7. Patient has HTN. He is on multiple medication including Norvasc 5 mg daily, Coreg 25 mg one pill twice daily and Hydralazine 50 mg one pill twice daily. He is to monitor his BP daily. He will need to hold his BP medication if BP sys less than 120. Further adjustment in his medication can be done by nephrology. Diet: Renal Activity: Ad damir Time spent managing pt's care (in minutes): 55
[2017-12-15 12:26] VITALS: BP 110/56
--- NOTE | 2017-12-15 14:19 | P.PN ---
Date of Service: 12/15/17 Vital Signs Temp Pulse Resp BP Pulse Ox 97 F 81 18 110/56 L 96 12/15/17 12:00 12/15/17 12:00 12/15/17 12:00 12/15/17 12:00 12/15/17 12:00 Medications Acetaminophen (Tylenol -Extra Strength) 500 mg PO Q4H PRN PRN Reason: [id number] Stop: 01/12/18 08:17 Albuterol Sulfate (Proventil 0.083% Neb Soln) 2.5 mg NEB [id number] PRN PRN Reason: SHORTNESS OF BREATH Stop: 01/14/18 04:01 Last Admin: 12/15/17 07:50 Dose: 2.5 mg Aspirin (Aspirin Chewable) 81 mg PO DAILY [facility] Stop: 01/13/18 09:01 Last Admin: 12/15/17 09:00 Dose: Not Given Atorvastatin Calcium (Lipitor) 80 mg PO BEDTIME [facility] Stop: 01/12/18 21:01 Last Admin: 12/14/17 21:31 Dose: 80 mg Carvedilol (Coreg) 25 mg PO BID 6AM 6PM [facility] Stop: 01/12/18 18:01 Last Admin: 12/15/17 06:00 Dose: Not Given Dextrose (Dextrose 50% Syringe) 12.5 gm IV PRN PRN; Protocol PRN Reason: HYPOGLYCEMIA Stop: 01/13/18 08:34 Last Admin: 12/14/17 09:58 Dose: 12.5 gm Enoxaparin Sodium (Lovenox 30 Mg Inj) 30 mg SQ [id number] [facility] Stop: 01/13/18 06:01 Last Admin: 12/15/17 05:56 Dose: 30 mg Epoetin Elvis (Procrit) 10,000 unit IV EVERY HD [facility] Stop: 01/12/18 08:31 Last Admin: 12/15/17 09:59 Dose: 10,000 unit Glucagon (Glucagen) 1 mg IM 1X PRN; Protocol PRN Reason: HYPOGLYCEMIA Stop: 01/13/18 08:34 Heparin Sodium (Porcine) (Heparin 1,000 Units/Ml) 6,000 unit IV EVERY HD PRN PRN Reason: FLUSH AFTER EACH USE Stop: 01/12/18 08:20 Last Admin: 12/15/17 10:00 Dose: 6,000 unit Home Med (Budesonide/Formoterol Fumarate [Symbicort 160-4.5 Mcg Inhaler]) 2 puff IH BID [facility] Stop: 01/12/18 21:01 Last Admin: 12/15/17 09:00 Dose: Not Given Home Med (Ipratropium/Albuterol Sulfate [Combivent Respimat 20-100 Mcg]) 1 puff IH Q6HP PRN PRN Reason: SHORTNESS OF BREATH Albumin Human (Albumin 25%) 50 mls @ 100 mls/hr IV EVERY HD [facility] Stop: 01/12/18 09:01 Ipratropium [place] (Atrovent Neb) 0.5 mg NEB [id number] PRN PRN Reason: SHORTNESS OF BREATH Stop: 01/14/18 04:01 Last Admin: 12/15/17 07:50 Dose: 0.5 mg Isosorbide Mononitrate (Imdur) 30 mg PO DAILY [facility] Stop: 01/14/18 09:01 Last Admin: 12/15/17 09:00 Dose: Not Given Mannitol (Mannitol 12.5 Gm/50 Ml Vial) 12.5 gm IV EVERY HD PRN PRN Reason: BP support at hemodialysis Stop: 01/12/18 08:20 Morphine Sulfate (Morphine Sulfate) 4 mg IV Q4H PRN PRN Reason: PAIN MODERATE TO SEVERE Stop: 01/12/18 08:17 Last Admin: 12/15/17 04:34 Dose: 4 mg Nitroglycerin (Nitrostat) 0.4 mg SL UD PRN PRN Reason: CHEST PAIN Stop: 01/12/18 08:17 Last Admin: 12/13/17 08:48 Dose: 0.4 tab.sl Pantoprazole Sodium (Protonix Tab) 40 mg PO BIDAC [facility] Stop: 01/13/18 16:31 Last Admin: 12/15/17 08:09 Dose: 40 mg Ranolazine (Ranexa) 1,000 mg PO BID [facility] Stop: 01/12/18 21:01 Last Admin: 12/15/17 09:00 Dose: Not Given Sevelamer Carbonate (Renvela) 800 mg PO TIDWM [facility] Stop: 01/12/18 17:01 Last Admin: 12/15/17 12:00 Dose: Not Given Sodium Chloride (Normal Saline Flush) 10 ml IV BID [facility] Stop: 01/12/18 09:01 Last Admin: 12/15/17 09:00 Dose: Not Given Sucralfate (Carafate Liq) 1 gm FT ACHS [facility] Stop: 01/13/18 11:31 Last Admin: 12/15/17 11:30 Dose: Not Given Tramadol HCl (Ultram) 50 mg PO TID PRN PRN Reason: PAIN Stop: 01/13/18 13:13 Last Admin: 12/14/17 21:32 Dose: 50 mg Assessment/ Plan: Nephrology. Feeling better today. CPS improved without CP or SOB. No acute events overnight. Vitals, medications, blood work and imaging reviewed in the chart. General: Oriented x3, Cooperative HEENT: Atraumatic, Mucous membr. moist/pink Neck: Supple Respiratory: Clear to auscultation bilaterally Cardiovascular: No edema, Regular rate/rhythm, No rubs Gastrointestinal: Normal bowel sounds, Non-distended, No guarding Musculoskeletal: No clubbing, No contractures Integumentary: No rashes Neurological: Normal speech Blood work reviewed in the chart. Hgb 10.1 Imagings Data: EXAM DESCRIPTION: RAD - Chest Single View - 12/13/2017 6:52 am CLINICAL HISTORY: CHEST PAIN Chest pain. COMPARISON: Chest Single View dated 10/28/2017; Chest Single View dated 2017; Chest Single View dated 09/21/2017; Chest Single View dated 08/29/2017 FINDINGS: Portable technique limits examination quality. The lungs are grossly clear. The heart is normal in size. Right-sided venous catheter has tip in the SVC. Sternotomy wires present. IMPRESSION: No acute intrathoracic process suspected. Conclusions/Impression: A/ ESRD on HD. Hyperkalemia. HTN with CKD. A/C Diastolic CHF. Anemia in CKD. RODOLFO/ Secondary HyperPTH. Hypomagnesemia. Poor compliance with dialysis. P/ Continue current POC and Medications. Acute HD today without complications. Low sodium diet. AM labs. Daily weight. Counseled regarding compliance with HD.
[2017-12-15 18:39] VITALS: O2SAT 100
== END 2017-12-15 16:38 | disposition home or self-care (01) ==
LOC: ER 05:12 → ERHOLD 07:33 → 4TH 09:08
PROVIDERS: ADMIT Family Medicine; ATTEND Family Medicine
PROC: 5A1D70Z Performance of Urinary Filtration, Intermittent, Less than 6 Hours Per Day (ICD-10-PCS; principal; 2017-12-13)
DX: R07.9 Chest pain, unspecified (principal); I13.2 Hypertensive heart and chronic kidney disease with heart failure and with stage 5 chronic kidney disease, or end stage renal disease; N18.6 End stage renal disease; I50.33 Acute on chronic diastolic (congestive) heart failure; Z99.2 Dependence on renal dialysis; Z91.15 Patient's noncompliance with renal dialysis; E87.5 Hyperkalemia; D63.1 Anemia in chronic kidney disease; N25.0 Renal osteodystrophy; E21.3 Hyperparathyroidism, unspecified; E83.42 Hypomagnesemia; J44.9 Chronic obstructive pulmonary disease, unspecified; Z88.0 Allergy status to penicillin; E78.5 Hyperlipidemia, unspecified; B18.2 Chronic viral hepatitis C; K21.9 Gastro-esophageal reflux disease without esophagitis; F17.200 Nicotine dependence, unspecified, uncomplicated; I25.10 Atherosclerotic heart disease of native coronary artery without angina pectoris; M25.512 Pain in left shoulder; M24.512 Contracture, left shoulder; I69.398 Other sequelae of cerebral infarction; I69.354 Hemiplegia and hemiparesis following cerebral infarction affecting left non-dominant side; I95.9 Hypotension, unspecified; Z95.5 Presence of coronary angioplasty implant and graft; Z79.82 Long term (current) use of aspirin; Z95.1 Presence of aortocoronary bypass graft
CPT/HCPCS: 36415 ×2; 71045; 76700; 80048 ×2; 80053; 80061; 80076; 82550; 82553; 82962; 83690; 83735 ×2; 83880; 84100; 84132; 84484 ×3; 84550; 85025 ×3; 85610; 85730; 90935 ×2; 93005; 94640; 94760 ×5; 96365; 96372; 96375; 97163; 99285; G0378 ×2; J0610; J1650 ×3; J2405; Q4081 ×2

== ENCOUNTER 2017-12-20 12:25 | Emergency (ER) | payer OTHER ==
[2017-12-20] MEDS ORDERED: NITROGLYCERIN 0.4 MG/TAB SL ONE (13:07)
[2017-12-20 13:19] LABS: Absolute Lymphocytes (CBC) 1.3 K/uL (0.7-4.9); Absolute Monocytes 0.6 K/uL (0.1-1.3); Absolute Neutrophil 3.2 K/uL (1.8-8.0); Basophils % 0.9 % (0-1.3); Eosinophils % 2.4 % (0-4.4); Hematocrit 31.9 % (39.6-49.0); Lymphocytes % 25.1 % (15.3-44.8); MCH 34.1 pg (27.0-35.0); MPV 9.5 fL (7.6-11.3); Monocytes % 10.6 % (3.3-12.3); RBC Red Blood Cell Count 3.19 M/uL (4.33-5.43)
[2017-12-20 13:32] LABS: Protime INR 0.92
--- NOTE | 2017-12-20 13:51 | RAD REPORT ---
EXAM DESCRIPTION: Dorothy Single View12/20/2017 1:37 pm CLINICAL HISTORY: Chest pain COMPARISON: December 13, 2017 FINDINGS: The lungs appear clear of acute infiltrate. The heart is mildly enlarged. Postsurgical changes involve the chest. A central venous catheter has its limbs in the superior vena cava. A battery pack overlies the left chest. IMPRESSION: No acute abnormalities displayed
[2017-12-20 14:02] LABS: ALT/SGPT 33 U/L (12-78); AST/SGOT 27 U/L (15-37); Albumin 3.4 g/dL (3.4-5.0); Alkaline Phosphatase 53 U/L (45-117); BUN Blood Urea Nitrogen 39 mg/dL (7-18); Bicarbonate 23 mmol/L (21-32); Bilirubin Direct 0.1 mg/dL (0-0.2); Bilirubin Total 0.5 mg/dL (0.2-1.0); CKMB Creatine Kinase MB < 1.0 ng/mL (0.3-3.6); Creatine Phosphokinase 62 U/L (39-308); Glucose Level 135 mg/dL (74-106); Magnesium 1.4 mg/dL (1.8-2.4); NT PRO-BNP 6624 pg/mL (<125); Potassium 3.8 mmol/L (3.5-5.1); Protein, Total 7.4 g/dL (6.4-8.2); Sodium Level 140 mmol/L (136-145)
[2017-12-20] MEDS ORDERED: ONDANSETRON 4 MG/2 ML VIAL ONE (14:48)
[2017-12-20] MEDS ORDERED: MORPHINE 4 MG/ML SYR ONE (14:48)
[2017-12-20 15:33] LABS: Urine Blood NEGATIVE (NEG); Urine Glucose NEGATIVE (NEG); Urine Protein 2+ (NEG); Urine Specific Gravity 1.025 (1.005-1.030)
--- NOTE | 2017-12-20 19:41 | ER ---
Nurse's Notes [facility] Name: Julien Parikh Age: 67 yrs Sex: Male : 1950 Arrival Date: 12/20/2017 Time: 12:25 Bed 17 Private MD: Diagnosis: Chest pain, unspecified Presentation: 12/20 12:26 Presenting complaint: EMS states: pt discharged from here Tuesday after being admitted for chest pain. pt states he has been having diarrhea since Tuesday. originally toned out for hypertension. upon arrival pt bp was 150/88, and pt stated he wanted to be transported to [facility] where his pain management doctors are. it was established that the pt complaint of hypertension could be treated here in [place]. pt stated today he went to dialysis but they would not dialyze him if he needed to be unhooked to go to the restroom frequently. pt did not have any vomiting or diarrhea in route. Transition of care: patient was not received from another setting of care. Onset of symptoms. Risk Assessment: Do you want to hurt yourself or someone else? Patient reports no desire to harm self or others. Initial Sepsis Screen: Does the patient meet any 2 criteria? No. Patient's initial sepsis screen is negative. Does the patient have a suspected source of infection? No. Patient's initial sepsis screen is negative. Care prior to arrival: None. 12:26 Method Of Arrival: EMS: [facility] 12:26 Acuity: PERRI 3 12:38 Presenting complaint: Patient states: I have had chest pain since Tuesday night. its a 9 ch out of 10 now. I went to dialysis today but they take too long to unhook me when I need to have a BM, so I had to leave. Triage Assessment: 12:31 General: Appears in no apparent distress. comfortable, Behavior is calm, cooperative, ch appropriate for age. Cardiovascular: Denies chest pain. Historical: - Allergies: 12: PENICILLINS; ch - Home Meds: : Advair Diskus 250-50 mcg/dose Inhl dsdv 1 puff 2 times per day [Active]; aspirin 81 mg ch Oral chew 1 tab once daily [Active]; atorvastatin 80 mg Oral tab 1 tab nightly [Active]; BRILINTA 90 mg Oral tab 1 tab 2 times per day [Active]; carvedilol 25 mg Oral tab 1 tab 2 times per day [Active]; hydralazine 50 mg Oral tab 2 tab 2 times per day [Active]; isosorbide mononitrate 60 mg Oral Tb24 1 tab once daily [Active]; metoprolol tartrate 25 mg Oral tab 2 tabs 2 times per day [Active]; Norvasc 5 mg Oral tab 1 tab once daily [Active]; Pepcid Oral [Active]; Ranexa 1,000 mg Oral Tb12 1 tab 2 times per day [Active]; Renagel 800 mg Oral tab 2 tabs 3 times per day [Active]; Renvela 800 mg Oral tab 2 tabs 3 times per day [Active]; - PMHx: 12:31 Asthma; CHF; chronic kidney disease; COPD; CVA; Dialysis T-Th-Sat; ESRD; Hepatitis; ch Hypertension; L arm paralysis; L sided weakness from CVA; Myocardial infarction; triple bypass; - PSHx: 13:17 heart bipass; Appendectomy; dialysis shunt R upper chest wall; - Immunization history:: Adult Immunizations up to date. - Social history:: Smoking status: . - Ebola Screening: : Patient negative for fever greater than or equal to 101.5 degrees Fahrenheit, and additional compatible Ebola Virus Disease symptoms Patient denies exposure to infectious person Patient denies travel to an Ebola-affected area in the 21 days before illness onset No symptoms or risks identified at this time. Screenin:40 Abuse screen: Denies threats or abuse. Nutritional screening: No deficits noted. ea Tuberculosis screening: No symptoms or risk factors identified. Fall Risk None identified. Assessment: 13:14 Reassessment: Patient appears in no apparent distress at this time. Patient and/or family updated on plan of care and expected duration. Pain level reassessed. Patient is alert, oriented x 3, equal unlabored respirations, skin warm/dry/pink. 13:16 Reassessment: Patient appears in no apparent distress at this time. No changes from previously documented assessment. Patient and/or family updated on plan of care and expected duration. Pain level reassessed. Patient is alert, oriented x 3, equal unlabored respirations, skin warm/dry/pink. 15:00 Reassessment: Patient appears in no apparent distress at this time. Patient and/or ch family updated on plan of care and expected duration. Pain level reassessed. pt states his pain is unchanged, hurts at a 9.5 out of 10. pt states the nitro did not fix his pain. pt requests "real pain medication, like the type that goes in a vein." Dr. Rosenabum notified of pt complaint of chest pain worsening and request for "real pain medication". 16:01 Reassessment: Patient appears in no apparent distress at this time. Patient and/or ch family updated on plan of care and expected duration. Pain level reassessed. Patient is alert, oriented x 3, equal unlabored respirations, skin warm/dry/pink. Patient states feeling better. Pain: Complains of pain in chest Pain does not radiate. Pain currently is 7 out of 10 on a pain scale. Pain began suddenly. 19:45 Reassessment: Patient and/or family updated on plan of care and expected duration. Pain ea level reassessed. Patient is alert, oriented x 3, equal unlabored respirations, skin warm/dry/pink. Discharge instructions given to patient, verbalized the understanding of instruction. Patient states feeling better. Patient states symptoms have improved. Vital Signs: 12:29 BP 182 / 82; Pulse 85; Resp 20; Temp 98.8(O); Pulse Ox 95% on R/A; mh5 13:00 BP 184 / 76; Pulse 94; ch 13:05 BP 161 / 83; Pulse 91; ch 13:10 BP 154 / 68; Pulse 88; ch 14:38 BP 168 / 99; Pulse 82; Resp 20; Temp 98.3; Pulse Ox 99% on R/A; Pain 9/10; ch 15:33 BP 176 / 86; Pulse 77; Pulse Ox 98% on R/A; Pain 7/10; ch 17:09 BP 159 / 71; Pulse 80; Resp 10; Pulse Ox 95% on R/A; mh5 19:19 BP 166 / 83; Pulse 74; Resp 14; Pulse Ox 99% on R/A; mt Vitals: 13:10 Cardiac Rhythm Assessment Regular Sinus rhythm. ED Course: 12:25 Patient arrived in ED. 12:30 Triage completed. 12:31 Patient has correct armband on for positive identification. Placed in gown. Bed in low mh5 position. Call light in reach. Side rails up X2. Warm blanket given. Pulse ox on. NIBP on. 12:31 Arm band placed on left wrist. Patient placed in an exam room, on a stretcher. ch 12:34 Harsha Rosenbaum MD is Attending Physician. tw4 12:35 library monitor on. 5 12:38 Yissel Greenfield, [facility] is Primary Nurse. 13:00 EKG done, by mixing technician. reviewed by Harsha Rosenbaum MD. dt2 13:17 No provider procedures requiring assistance completed. Missed attempt(s): 22 gauge in ch left wrist. Bleeding controlled, band aid applied, catheter tip intact. Patient maintains SpO2 saturation greater than 95% on room air. 13:35 X-ray completed. Portable x-ray completed in exam room. Patient tolerated procedure sw well. 13:36 XRAY Chest (1 view) In Process Unspecified. EDMS 15:00 Inserted saline lock: 24 gauge in left hand, using aseptic technique. Missed ch attempt(s): 22 gauge in right wrist. 19:32 Report given to [facility]. 19:39 Luis Eduardo Alanis MD is Referral Physician. tw4 19:40 IV discontinued, intact, bleeding controlled, No redness/swelling at site. Pressure ea dressing applied. Administered Medications: 13:00 Drug: Nitroglycerin 0.4 mg Route: Sublingual; ch 13:05 Drug: Nitroglycerin 0.4 mg Route: Sublingual; ch 13:16 Drug: Nitroglycerin 0.4 mg Route: Sublingual; ch 14:37 Follow up: Response: No adverse reaction; No change in condition ch 15:00 Drug: morphine 4 mg Route: IVP; Site: left hand; ch 15:32 Follow up: Response: No adverse reaction; Marked relief of symptoms ch 15:00 Drug: Zofran 4 mg Route: IVP; Site: left hand; ch 15:32 Follow up: Response: No adverse reaction Outcome: 19:40 Discharge ordered by . tw4 19:45 Discharged to home ambulatory, with family. ea 19:45 Condition: improved 19:45 Discharge instructions given to patient, Instructed on discharge instructions, follow up and referral plans. Demonstrated understanding of instructions, follow-up care. 20:00 Patient left the ED. ea Signatures: Dispatcher [employer] EDUT Yissel Greenfield RN RN Teresita Greene [facility]enike Post mt, Elena, RN RN Harsha Feldman MD MD tw4 Christy Richards dt2
--- NOTE | 2017-12-20 19:41 | EDPHYS ---
Physician Documentation [facility] Name: Julien Parikh Age: 67 yrs Sex: Male : 1950 Arrival Date: 12/20/2017 Time: 12:25 Bed 17 Private MD: ED Physician Harsha Rosenbaum HPI: 12/20 17:14 This 67 yrs old Black Male presents to ER via EMS with complaints of Chest Pain. tw4 17:14 The patient or guardian reports chest pain that is located primarily in the anterior tw4 chest wall. Onset: today. The pain does not radiate. Associated signs and symptoms: The patient has no apparent associated signs or symptoms. The chest pain is described as a heaviness. Duration: The patient or guardian reports a single episode, that is still ongoing, and unchanged. Modifying factors: The symptoms are alleviated by nothing. the symptoms are aggravated by nothing. Severity of pain: At its worst the pain was moderate in the emergency department the pain is unchanged. The patient has not experienced similar symptoms in the past. Historical: - Allergies: 12: PENICILLINS; ch - Home Meds: : Advair Diskus 250-50 mcg/dose Inhl dsdv 1 puff 2 times per day [Active]; aspirin 81 mg ch Oral chew 1 tab once daily [Active]; atorvastatin 80 mg Oral tab 1 tab nightly [Active]; BRILINTA 90 mg Oral tab 1 tab 2 times per day [Active]; carvedilol 25 mg Oral tab 1 tab 2 times per day [Active]; hydralazine 50 mg Oral tab 2 tab 2 times per day [Active]; isosorbide mononitrate 60 mg Oral Tb24 1 tab once daily [Active]; metoprolol tartrate 25 mg Oral tab 2 tabs 2 times per day [Active]; Norvasc 5 mg Oral tab 1 tab once daily [Active]; Pepcid Oral [Active]; Ranexa 1,000 mg Oral Tb12 1 tab 2 times per day [Active]; Renagel 800 mg Oral tab 2 tabs 3 times per day [Active]; Renvela 800 mg Oral tab 2 tabs 3 times per day [Active]; - PMHx: 12:31 Asthma; CHF; chronic kidney disease; COPD; CVA; Dialysis T-Th-Sat; ESRD; Hepatitis; ch Hypertension; L arm paralysis; L sided weakness from CVA; Myocardial infarction; triple bypass; - PSHx: 13:17 heart bipass; Appendectomy; dialysis shunt R upper chest wall; ch - Immunization history:: Adult Immunizations up to date. - Social history:: Smoking status: . - Ebola Screening: : Patient negative for fever greater than or equal to 101.5 degrees Fahrenheit, and additional compatible Ebola Virus Disease symptoms Patient denies exposure to infectious person Patient denies travel to an Ebola-affected area in the 21 days before illness onset No symptoms or risks identified at this time. ROS: 17:14 Constitutional: Negative for fever, chills, and weight loss, Respiratory: Negative for tw4 shortness of breath, cough, wheezing, and pleuritic chest pain, Abdomen/GI: Negative for abdominal pain, nausea, vomiting, diarrhea, and constipation, Back: Negative for injury and pain, MS/Extremity: Negative for injury and deformity, Skin: Negative for injury, rash, and discoloration, Neuro: Negative for headache, weakness, numbness, tingling, and seizure. 17:14 Cardiovascular: Positive for chest pain, Negative for edema, orthopnea, palpitations, paroxysmal nocturnal dyspnea. Exam: 17:14 Constitutional: This is a well developed, well nourished patient who is awake, alert, tw4 and in no acute distress. Head/Face: Normocephalic, atraumatic. Cardiovascular: Regular rate and rhythm with a normal S1 and S2. No gallops, murmurs, or rubs. Normal PMI, no JVD. No pulse deficits. Respiratory: Lungs have equal breath sounds bilaterally, clear to auscultation and percussion. No rales, rhonchi or wheezes noted. No increased work of breathing, no retractions or nasal flaring. Abdomen/GI: Soft, non-tender, with normal bowel sounds. No distension or tympany. No guarding or rebound. No evidence of tenderness throughout. Back: No spinal tenderness. No costovertebral tenderness. Full range of motion. MS/ Extremity: Pulses equal, no cyanosis. Neurovascular intact. Full, normal range of motion. Neuro: Awake and alert, GCS 15, oriented to person, place, time, and situation. Cranial nerves II-XII grossly intact. Motor strength 5/5 in all extremities. Sensory grossly intact. Cerebellar exam normal. Normal gait. 17:14 Chest/axilla: Inspection: dialysis access in right subclavian area, appears well no erythema, nontender. Vital Signs: 12:29 BP 182 / 82; Pulse 85; Resp 20; Temp 98.8(O); Pulse Ox 95% on R/A; mh5 13:00 BP 184 / 76; Pulse 94; ch 13:05 BP 161 / 83; Pulse 91; ch 13:10 BP 154 / 68; Pulse 88; ch 14:38 BP 168 / 99; Pulse 82; Resp 20; Temp 98.3; Pulse Ox 99% on R/A; Pain 9/10; ch 15:33 BP 176 / 86; Pulse 77; Pulse Ox 98% on R/A; Pain 7/10; ch 17:09 BP 159 / 71; Pulse 80; Resp 10; Pulse Ox 95% on R/A; mh5 19:19 BP 166 / 83; Pulse 74; Resp 14; Pulse Ox 99% on R/A; mt MDM: 12:34 Patient medically screened. tw4 21:37 Differential diagnosis: coronary artery disease chest wall pain. Data reviewed: vital tw4 signs, nurses notes. 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 Counseling: I had a detailed discussion with the patient and/or guardian regarding: the historical points, exam findings, and any diagnostic results supporting the discharge/admit diagnosis. Special discussion: Based on the patient's history, exam, and Dx evaluation, there is no indication for emergent intervention or inpatient Tx. It is understood by the patient/guardian that if the Sx's persist or worsen they need to return immediately for re-evaluation. I discussed with the patient/guardian in detail that at this point there is no indication for admission to the hospital. It is understood, however, that if the symptoms persist or worsen the patient needs to return immediately for re-evaluation. ED course: Pt had clean catheterization in June by Dr Alanis and had recent admission for CP that called for medical management of chest pain. 12/20 12:55 Order name: Basic Metabolic Panel; Complete Time: 15:48 tw4 12/20 12:55 Order name: CBC with Diff; Complete Time: 15:48 tw4 12/20 12:55 Order name: Ckmb; Complete Time: 15:48 tw4 08/14 12:55 Order name: CPK; Complete Time: 15:48 12/20 12:55 Order name: LFT's; Complete Time: 15:48 rust 12/20 12:55 Order name: Magnesium; Complete Time: 15:48 12/20 12:55 Order name: NT PRO-BNP; Complete Time: 15:48 rust 12/20 12:55 Order name: PT-INR; Complete Time: 15:48 rust 12/20 12:55 Order name: Ptt, Activated; Complete Time: 15:48 rust 12/20 12:55 Order name: Troponin (emerg Dept Use Only); Complete Time: 15:48 rust 12/20 12:55 Order name: XRAY Chest (1 view); Complete Time: 15:48 rust 12/20 15:29 Order name: Urine Dipstick--Ancillary (enter results); Complete Time: 15:48 12/20 17:02 Order name: Troponin (emerg Dept Use Only) rust 12/20 12:55 Order name: EKG; Complete Time: 12:56 12/20 12:55 Order name: Cardiac monitoring; Complete Time: 13:01 12/20 12:55 Order name: EKG - Nurse/Tech; Complete Time: 13:01 rust 12/20 12:55 Order name: IV Saline Lock; Complete Time: 15:33 12/20 12:55 Order name: Labs collected and sent; Complete Time: 13:16 12/20 12:55 Order name: O2 Per Protocol; Complete Time: 13:01 12/20 12:55 Order name: O2 Sat Monitoring; Complete Time: 13:01 12/20 12:55 Order name: Urine Dipstick-Ancillary (obtain specimen); Complete Time: 15:33 tw4 Administered Medications: 13:00 Drug: Nitroglycerin 0.4 mg Route: Sublingual; ch 13:05 Drug: Nitroglycerin 0.4 mg Route: Sublingual; ch 13:16 Drug: Nitroglycerin 0.4 mg Route: Sublingual; ch 14:37 Follow up: Response: No adverse reaction; No change in condition ch 15:00 Drug: morphine 4 mg Route: IVP; Site: left hand; ch 15:32 Follow up: Response: No adverse reaction; Marked relief of symptoms 15:00 Drug: Zofran 4 mg Route: IVP; Site: left hand; 15:32 Follow up: Response: No adverse reaction Disposition: 12/20/17 19:40 Discharged to Home. Impression: Chest pain, unspecified. - Condition is Stable. - Discharge Instructions: Nonspecific Chest Pain, Pain Without a Known Cause. - SBAR form, Medication Reconciliation Form, Thank You Letter, Antibiotic Education, Prescription Opioid Use form. - Follow up: Private Physician; When: As needed; Reason: Further diagnostic work-up, Recheck today's complaints, Re-evaluation by your physician. Follow up: Luis Eduardo Alanis MD; When: As needed; Reason: Further diagnostic work-up, Recheck today's complaints, Re-evaluation by your physician. - Problem is new. - Symptoms have improved. Signatures: Dispatcher [employer] EDMS Yissel Greenfield RN RN ch Antunez, Elena, RN RN ea Wadley, Terrence, MD MD tw4 Corrections: (The following items were deleted from the chart) 20:00 19:40 12/20/2017 19:40 Discharged to Home. Impression: Chest pain, unspecified. ea Condition is Stable. Forms are SBAR form, Medication Reconciliation Form, Thank You Letter, Antibiotic Education, Prescription Opioid Use. Follow up: Private Physician; When: As needed; Reason: Further diagnostic work-up, Recheck today's complaints, Re-evaluation by your physician. Follow up: Luis Eduardo Alanis; When: As needed; Reason: Further diagnostic work-up, Recheck today's complaints, Re-evaluation by your physician. Problem is new. Symptoms have improved. tw4
[2017-12-20 20:15] VITALS: TEMP 98.3
[2017-12-20 20:19] VITALS: BP 166/83; O2SAT 99
--- NOTE | 2017-12-20 21:12 | EKG ---
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
== END 2017-12-20 20:00 | disposition home or self-care (01) ==
LOC: ER 12:25
DX: R07.9 Chest pain, unspecified (principal); I12.0 Hypertensive chronic kidney disease with stage 5 chronic kidney disease or end stage renal disease; N18.6 End stage renal disease; J44.9 Chronic obstructive pulmonary disease, unspecified; I25.2 Old myocardial infarction; I50.9 Heart failure, unspecified; Z79.82 Long term (current) use of aspirin; Z88.0 Allergy status to penicillin; Z99.2 Dependence on renal dialysis; Z95.1 Presence of aortocoronary bypass graft; Z86.73 Personal history of transient ischemic attack (TIA), and cerebral infarction without residual deficits
CPT/HCPCS: 36415; 71045; 80048; 80076; 81003; 82550; 82553; 83735; 83880; 84484 ×2; 85025; 85610; 85730; 93005; J2405; 96374; 96375; 99285

== ENCOUNTER 2018-01-25 16:08 | Emergency (ER) | payer OTHER ==
[2018-01-25] MEDS ORDERED: MAGNE/ALUM HYDROXD 30 ML UCUP ONE (17:10)
[2018-01-25] MEDS ORDERED: LIDOCAINE VISCOUS 2% SOLN 15 ML UDC ONE (17:11)
[2018-01-25] MEDS ORDERED: MORPHINE 4 MG/ML SYR ONE (17:11)
--- NOTE | 2018-01-25 17:13 | RAD REPORT ---
EXAM DESCRIPTION: RAD - Chest Single View - 01/25/2018 5:06 pm CLINICAL HISTORY: Pneumonia Chest pain. COMPARISON: Chest Single View dated 12/20/2017; Chest Single View dated 12/13/2017; Chest Single View d ated 10/28/2017; Chest Single View dated 10/26/2017 FINDINGS: Portable technique limits examination quality. The lungs are grossly clear. The heart is normal in size. Changes of prior CABG noted.Right-sided claudia ous catheter has tip in the SVC. IMPRESSION: No acute intrathoracic process suspected.
[2018-01-25 17:17] LABS: Absolute Lymphocytes (CBC) 1.2 K/uL (0.7-4.9); Absolute Monocytes 0.5 K/uL (0.1-1.3); Basophils % 0.9 % (0-1.3); Eosinophils % 2.4 % (0-4.4); Hematocrit 34.7 % (39.6-49.0); Lymphocytes % 24.4 % (15.3-44.8); MCH 33.1 pg (27.0-35.0); MCV 97.3 fL (80-100); Monocytes % 10.6 % (3.3-12.3); RBC Red Blood Cell Count 3.57 M/uL (4.33-5.43)
[2018-01-25] MEDS ORDERED: LIDOCAINE 1% MPF 2 ML AMPULE ONE (17:29)
[2018-01-25 17:52] LABS: ALT/SGPT 22 U/L (12-78); AST/SGOT 25 U/L (15-37); Albumin 3.6 g/dL (3.4-5.0); Alkaline Phosphatase 50 U/L (45-117); BUN Blood Urea Nitrogen 35 mg/dL (7-18); Bicarbonate 19 mmol/L (21-32); Bilirubin Direct 0.2 mg/dL (0-0.2); Bilirubin Total 0.5 mg/dL (0.2-1.0); Glucose Level 80 mg/dL (74-106); NT PRO-BNP 7865 pg/mL (<125); Potassium 4.1 mmol/L (3.5-5.1); Protein, Total 7.4 g/dL (6.4-8.2); Sodium Level 141 mmol/L (136-145); Troponin (Emerg Dept Use Only) < 0.02 ng/mL (0.0-0.045)
--- NOTE | 2018-01-25 18:01 | EDPHYS ---
Physician Documentation [facility] Name: Julien Parikh Age: 67 yrs Sex: Male : 1950 Arrival Date: 01/25/2018 Time: 16:12 Bed 4 Private MD: ED Physician Jeronimo Blackburn HPI: 01/25 16:36 This 67 yrs old Black Male presents to ER via EMS with complaints of Doesn't Feel Right.rn 16:36 The patient or guardian reports chest pain that is located primarily in the substernal rn area. Onset: at an unknown time. The pain does not radiate. The chest pain is described as aching, sharp. Modifying factors: The symptoms are alleviated by nothing. the symptoms are aggravated by nothing. Severity of pain: At its worst the pain was mild in the emergency department the pain is unchanged. The patient has experienced similar episodes in the past. Reports chest pain, central, non-radiating, not sure when it began, thinks yesterday, constant, feels like "small sledgehammer hitting chest", + non-productive cough, no fever, missed dialysis yesterday for unclear reason. . Historical: - Allergies: 16:13 PENICILLINS; aa5 - PMHx: 16:13 Asthma; CHF; COPD; chronic kidney disease; CVA; Dialysis T-Th-Sat; ESRD; Hepatitis; aa5 Hypertension; L arm paralysis; Myocardial infarction; triple bypass; L sided weakness from CVA; - Social history:: Smoking status: Patient uses tobacco products, 2-3 cigarettes a day . - Ebola Screening: : No symptoms or risks identified at this time. - Family history:: not pertinent. - Hospitalizations: : No recent hospitalization is reported. ROS: 16:36 Constitutional: Negative for fever, chills, and weight loss, Eyes: Negative for injury, rn pain, redness, and discharge, Cardiovascular: Negative for palpitations Respiratory: Negative for wheezing, and pleuritic chest pain, Abdomen/GI: Negative for abdominal pain, nausea, vomiting, diarrhea, and constipation, MS/Extremity: Negative for injury and deformity, Skin: Negative for injury, rash, and discoloration, Neuro: Negative for headache, numbness, tingling, and seizure. Exam: 16:36 Constitutional: This is a well developed, well nourished patient who is awake, alert, rn and in no acute distress. Dialing on on phone entire time i am speaking to him, legs crossed and appears very comfortable. Head/Face: Normocephalic, atraumatic. Eyes: Pupils equal round and reactive to light, extra-ocular motions intact. Lids and lashes normal. Conjunctiva and sclera are non-icteric and not injected. Cornea within normal limits. Periorbital areas with no swelling, redness, or edema. Chest/axilla: + dialysis catheter on right chest, well dressed. Cardiovascular: Regular rate and rhythm with a normal S1 and S2. No gallops, murmurs, or rubs. Normal PMI, no JVD. No pulse deficits. Respiratory: faint inspiratory wheezing, no tachypnea, not labored Abdomen/GI: Soft, non-tender, with normal bowel sounds. No distension or tympany. No guarding or rebound. No evidence of tenderness throughout. MS/ Extremity: Pulses equal, no cyanosis. Neurovascular intact. Full, normal range of motion. Equal circumference. Neuro: Awake and alert, GCS 15, oriented to person, place, time, and situation. Cranial nerves II-XII grossly intact. Motor strength 5/5 in all extremities. Sensory grossly intact. Vital Signs: 16:13 BP 196 / 102; Pulse 74; Resp 18 S; Temp 98.0(O); Pulse Ox 98% on R/A; Weight 70.76 kg aa5 (R); Height 5 ft. 8 in. (172.72 cm) (R); Pain 9/10; 17:40 BP 175 / 102; Pulse 68; Resp 16 S; Pulse Ox 98% on R/A; Pain 8/10; aa5 16:13 Body Mass Index 23.72 (70.76 kg, 172.72 cm) aa5 MDM: 16:21 Patient medically screened. rn 16:58 ED course: Pt just admitted on december, cardiology did not believe to be cardiac in rn origin, dc summary reports GI origin and improved with antacids, had abnormal stress in 06/2017, but neg cath that same month. . 17:58 Differential diagnosis: acute myocardial infarction, acute pericarditis, anxiety, rn coronary artery disease chest wall pain, costochondritis, esophagitis, gastritis, gastroesophageal reflux disease (GERD), pleurisy, pneumonia, pneumothorax. Data reviewed: vital signs, nurses notes, lab test result(s), EKG, radiologic studies, plain films, and as a result, I will discharge patient. Counseling: I had a detailed discussion with the patient and/or guardian regarding: the historical points, exam findings, and any diagnostic results supporting the discharge/admit diagnosis, lab results, radiology results, the need for outpatient follow up, to return to the emergency department if symptoms worsen or persist or if there are any questions or concerns that arise at home. Special discussion: Based on the patient's history, exam, and Dx evaluation, there is no indication for emergent intervention or inpatient Tx. It is understood by the patient/guardian that if the Sx's persist or worsen they need to return immediately for re-evaluation. I discussed with the patient/guardian in detail that at this point there is no indication for admission to the hospital. It is understood, however, that if the symptoms persist or worsen the patient needs to return immediately for re-evaluation. ED course: Multiple previous w/u for cardiac etiology of chest pain, + distant CABG with stents but st recent cath and cardiology eval are pointing to other causes of chest pain, improved with GI cocktail, dialysis catheter sutured back in place since stitch came undone while patient in shower today, will dc home with f/u for dialysis as scheduled. CXR without pulmonary edema, and electrolytes wnl. . 01/25 16:25 Order name: Basic Metabolic Panel rn 01/25 16:25 Order name: CBC with Diff rn 01/25 16:25 Order name: LFT's rn 01/25 16:25 Order name: NT PRO-BNP rn 01/25 16:25 Order name: Troponin (emerg Dept Use Only) rn 01/25 17:20 Order name: CBC with Automated Diff; Complete Time: 17:30 EDMS 01/25 16:25 Order name: XRAY Chest (1 view) rn 01/25 17:15 Order name: RAD; Complete Time: 17:30 EDMS 01/25 17:50 Order name: Urine Dipstick--Ancillary (enter results) bd 01/25 17:53 Order name: Basic Metabolic Panel; Complete Time: 17:57 EDMS 01/25 17:53 Order name: Liver (Hepatic) Function; Complete Time: 17:57 EDMS 01/25 17:54 Order name: Troponin (Emerg Dept Use Only); Complete Time: 17:57 EDME 01/25 17:54 Order name: NT PRO-BNP; Complete Time: 17:57 [facility] 01/25 18:31 Order name: Urine Dipstick-Ancillary [facility] 01/25 16:25 Order name: Cardiac monitoring; Complete Time: 16:30 rn 01/25 16:25 Order name: EKG - Nurse/Tech; Complete Time: 16:30 rn 01/25 16:25 Order name: IV Saline Lock; Complete Time: 16:31 rn 01/25 16:25 Order name: Labs collected and sent; Complete Time: 16:31 rn 01/25 16:25 Order name: O2 Per Protocol; Complete Time: 16:31 rn 01/25 16:25 Order name: O2 Sat Monitoring; Complete Time: 16:31 rn Administered Medications: 17:04 Drug: GI Cocktail without - (Maalox Suspension 30 ml, Lidocaine Liquid 2 % 15 aa5 ml) Route: PO; 17:47 Follow up: Response: No adverse reaction aa5 17:04 Drug: morphine 4 mg Route: IVP; Site: left forearm; aa5 17:10 Follow up: Response: No adverse reaction aa5 17:57 Drug: Lidocaine (1 %) 1 vials {Note: to right upper chest to secure dialysis catheter aa5 with sutures by JOSE ELIAS Sarabia .} Volume: 5 ml; Route: Infiltration; Disposition: 01/25/18 18:01 Discharged to Home. Impression: Chest pain, unspecified. - Condition is Stable. - Discharge Instructions: Nonspecific Chest Pain, Hypertension, Dialysis. - Medication Reconciliation Form, Thank You Letter, Antibiotic Education, Prescription Opioid Use form. - Follow up: Private Physician; When: As needed; Reason: Recheck today's complaints, Re-evaluation by your physician. - Problem is an ongoing problem. - Symptoms have improved. Signatures: Dispatcher [employer] [facility] Jeronimo Blackburn MD MD rn Calderon, Audri, RN RN aa5 Corrections: (The following items were deleted from the chart) 16:38 16:36 Constitutional: Negative for fever, chills, and weight loss, Eyes: Negative for rn injury, pain, redness, and discharge, Cardiovascular: Negative for palpitations Respiratory: Negative for wheezing, and pleuritic chest pain, Abdomen/GI: Negative for abdominal pain, nausea, vomiting, diarrhea, and constipation, MS/Extremity: Negative for injury and deformity, Skin: Negative for injury, rash, and discoloration, Neuro: Negative for headache, numbness, tingling, and seizure, rn 18:34 18:01 01/25/2018 18:01 Discharged to Home. Impression: Chest pain, unspecified. aa5 Condition is Stable. Forms are Medication Reconciliation Form, Thank You Letter, Antibiotic Education, Prescription Opioid Use. Follow up: Private Physician; When: As needed; Reason: Recheck today's complaints, Re-evaluation by your physician. Problem is an ongoing problem. Symptoms have improved. rn
--- NOTE | 2018-01-25 18:01 | ER ---
Nurse's Notes [facility] Name: Julien Parikh Age: 67 yrs Sex: Male : 1950 Arrival Date: 01/25/2018 Time: 16:12 Bed 4 Private MD: Diagnosis: Chest pain, unspecified Presentation: 01/25 16:12 Presenting complaint: Patient states: "I was feeling well up until around 1 PM when I aa5 started feeling weak, dizzy, and my chest started hurting". Pt reports last dialysis was Tuesday and he missed dialysis yesterday because "my ride didn't show up". 16:12 Transition of care: patient was not received from another setting of care. Onset of aa5 symptoms was January 25, 2018. Risk Assessment: Do you want to hurt yourself or someone else? Patient reports no desire to harm self or others. Initial Sepsis Screen: Does the patient meet any 2 criteria? No. Patient's initial sepsis screen is negative. Does the patient have a suspected source of infection? No. Patient's initial sepsis screen is negative. Care prior to arrival: None. 16:12 Method Of Arrival: EMS: [facility] aa5 16:12 Acuity: PERRI 3 aa5 Historical: - Allergies: 16:13 PENICILLINS; aa5 - PMHx: 16:13 Asthma; CHF; COPD; chronic kidney disease; CVA; Dialysis T-Th-Sat; ESRD; Hepatitis; aa5 Hypertension; L arm paralysis; Myocardial infarction; triple bypass; L sided weakness from CVA; - Social history:: Smoking status: Patient uses tobacco products, 2-3 cigarettes a day . - Ebola Screening: : No symptoms or risks identified at this time. - Family history:: not pertinent. - Hospitalizations: : No recent hospitalization is reported. Screenin:28 Abuse screen: Denies threats or abuse. Nutritional screening: No deficits noted. aa5 Tuberculosis screening: No symptoms or risk factors identified. 16:40 Fall Risk Fall in past 12 months (25 points). Secondary diagnosis (15 points) CVA, IV aa5 access (20 points). Total Diop Fall Scale indicates High Risk Score (45 or more points). Fall prevention measures have been instituted. Side Rails Up X 2. Assessment: 16:15 General: Appears comfortable, Behavior is calm, cooperative. Pain: Complains of pain in aa5 mid-sternal area Pain does not radiate. Pain currently is 9 out of 10 on a pain scale. Quality of pain is described as pt sates "It feels like somebody is hitting me with a baseball bat" Pain began 3 hours ago. Is continuous. Neuro: Level of Consciousness is awake, alert, obeys commands, Oriented to person, place, time, situation, Pt currently denies dizziness. Pt states "I just felt dizzy when I closed my eyes around 1pm" . Cardiovascular: Heart tones S1 S2 present Dialysis catheter noted to right upper chest, unsecured and undressed, pt states "the sutures and dressing came off today when I was taking a shower". Edema Rhythm is sinus rhythm. Respiratory: Reports mild SOB today Airway is patent Respiratory effort is even, unlabored, Respiratory pattern is regular, symmetrical, Breath sounds with wheezes bilaterally. GI: Abdomen is round non-distended, Bowel sounds present X 4 quads. Abd is soft and non tender X 4 quads. Patient currently denies nausea, vomiting. : No signs and/or symptoms were reported regarding the genitourinary system. EENT: No signs and/or symptoms were reported regarding the EENT system. Derm: Skin is dry, Skin is normal, Skin temperature is warm. Musculoskeletal: Paralysis noted to left arm. 16:16 Reassessment: Dialysis catheter site cleaned with chlorhexidine and dressed with gauze aa5 and Tegaderm at this time. MD notified that catheter is not secured with sutures. . 17:00 Reassessment: Labs drawn by phone technician and sent to lab . aa5 17:30 Reassessment: Patient and/or family updated on plan of care and expected duration. Pain aa5 level reassessed. Patient states feeling better. Pain: Pain currently is 8 out of 10 on a pain scale. Neuro: Level of Consciousness is awake, alert, obeys commands, Oriented to person, place, time, situation. Respiratory: Airway is patent Respiratory effort is even, unlabored, Respiratory pattern is regular, symmetrical. Derm: Skin is dry, Skin is normal, Skin temperature is warm. 18:30 Neuro: Level of Consciousness is awake, alert, obeys commands, Oriented to person, aa5 place, time, situation. Respiratory: Airway is patent Respiratory effort is even, unlabored, Respiratory pattern is regular, symmetrical. Derm: Skin is dry, Skin is normal, Skin temperature is warm. Vital Signs: 16:13 BP 196 / 102; Pulse 74; Resp 18 S; Temp 98.0(O); Pulse Ox 98% on R/A; Weight 70.76 kg aa5 (R); Height 5 ft. 8 in. (172.72 cm) (R); Pain 9/10; 17:40 BP 175 / 102; Pulse 68; Resp 16 S; Pulse Ox 98% on R/A; Pain 8/10; aa5 16:13 Body Mass Index 23.72 (70.76 kg, 172.72 cm) aa5 ED Course: 16:12 Patient arrived in ED. dm5 16:12 Arm band placed on Patient placed in an exam room, on a stretcher. aa5 16:12 Patient has correct armband on for positive identification. Placed in gown. Bed in low aa5 position. Call light in reach. Side rails up X2. teletypesetter monitor on. Pulse ox on. NIBP on. 16:18 Helen Parker, RN is Primary Nurse. aa5 16:21 Jeronimo Blackburn MD is Attending Physician. rn 16:25 Triage completed. aa5 16:36 Inserted saline lock: 22 gauge in left forearm, using aseptic technique. dh3 16:40 EKG done, by geological technician. reviewed by Jeronimo Blackburn MD. sm3 17:05 X-ray completed. Portable x-ray completed in exam room. Patient tolerated procedure ml well. 17:45 Urine collected: clean catch specimen, clear. iw 17:58 Assist with securing dialysis catheter to right upper chest with 2 sutures by Tank aa5 JOSE ELIAS Ramos. Dressed with gauze and tegaderm. 18:32 IV discontinued, intact, bleeding controlled, No redness/swelling at site. Pressure aa5 dressing applied. Administered Medications: 17:04 Drug: GI Cocktail without - (Maalox Suspension 30 ml, Lidocaine Liquid 2 % 15 aa5 ml) Route: PO; 17:47 Follow up: Response: No adverse reaction aa5 17:04 Drug: morphine 4 mg Route: IVP; Site: left forearm; aa5 17:10 Follow up: Response: No adverse reaction aa5 17:57 Drug: Lidocaine (1 %) 1 vials {Note: to right upper chest to secure dialysis catheter aa5 with sutures by OJSE ELIAS Sarabia .} Volume: 5 ml; Route: Infiltration; Outcome: 18:01 Discharge ordered by . rn 18:32 Discharged to home ambulatory, with family. aa5 18:32 Condition: stable 18:32 Discharge instructions given to patient, Instructed on discharge instructions, follow up and referral plans. Demonstrated understanding of instructions, follow-up care. 18:34 Patient left the ED. aa5 Signatures: Petra Masterson RN RN dm5 Josephine Brandon RN Shanita Carballo Roman, MD MD rn Calderon, Audri, RN RN 5 Abby Hutchins [facility] Ami Montoya [facility] Corrections: (The following items were deleted from the chart) 16:46 16:46 Inserted saline lock: 22 gauge in left forearm, using aseptic technique. [place] [id number] 17:39 16:15 Cardiovascular: Heart tones S1 S2 present Edema Rhythm is sinus rhythm aa5 5
[2018-01-25 18:31] LABS: Urine Blood 1+ (NEG); Urine Glucose NEGATIVE (NEG); Urine Protein 3+ (NEG); Urine Specific Gravity 1.025 (1.005-1.030); Urine pH 5.5 (5.0-7.0)
[2018-01-25 19:30] VITALS: TEMP 98; O2SAT 98
[2018-01-25 19:31] VITALS: BP 175/102
--- NOTE | 2018-01-27 06:59 | EKG ---
Test Date: 2018-01-25 Test Time: 16:35:49 [employer]form[employer]: JOSE MEASUREMENT RESULTS: Intervals: Rate: 73 NE: 138 QRSD: 88 QT: 440 QTc: 484 [place]: P: 82 NE: 138 QRS: -1 T: 268 INTERPRETIVE STATEMENTS: Normal sinus rhythm Moderate voltage criteria for LVH, may be normal variant ST & T wave abnormality, consider inferior ischemia Prolonged QT Abnormal ECG Compared to ECG 12/20/2017 12:38:02 Left ventricular hypertrophy now present Possible ischemia now present Ventricular premature complex(es) no longer present ST (T wave) deviation still present Electronically Signed On 01-27-18 06:55:20 CDT by Jono Hauser
== END 2018-01-25 18:34 | disposition home or self-care (01) ==
LOC: ER 16:08
DX: R07.9 Chest pain, unspecified (principal); Z88.0 Allergy status to penicillin; F17.210 Nicotine dependence, cigarettes, uncomplicated
CPT/HCPCS: 36415; 71045; 80048; 80076; 81003; 83880; 84484; 85025; 93005; 96374; 99284; J2001

== ENCOUNTER 2018-03-19 15:55 | Observation (INO) | payer OTHER ==
[2018-03-19] MEDS ORDERED: ASPIRIN 81 MG CHEWABLE TABLET ONE (16:18)
[2018-03-19] MEDS ORDERED: NITROGLYCERIN 0.4 MG/TAB SL ONE (16:18)
[2018-03-19 16:30] LABS: Protime INR 1.08
[2018-03-19 16:33] LABS: Absolute Monocytes 0.4 K/uL (0.1-1.3); Absolute Neutrophil 4.1 K/uL (1.8-8.0); Basophils % 0.6 % (0-1.3); Eosinophils % 1.1 % (0-4.4); Hematocrit 32.8 % (39.6-49.0); Lymphocytes % 17.8 % (15.3-44.8); MCH 33.3 pg (27.0-35.0); MCV 98.1 fL (80-100); Monocytes % 7.5 % (3.3-12.3); RBC Red Blood Cell Count 3.34 M/uL (4.33-5.43)
[2018-03-19 16:51] LABS: Albumin 3.8 g/dL (3.4-5.0); Bilirubin Direct 0.2 mg/dL (0-0.2); Bilirubin Total 0.5 mg/dL (0.2-1.0); Potassium 5.1 mmol/L (3.5-5.1); Protein, Total 8.2 g/dL (6.4-8.2); Troponin (Emerg Dept Use Only) 0.24 ng/mL (0.0-0.045)
[2018-03-19 16:57] LABS: Magnesium 1.1 mg/dL (1.8-2.4)
--- NOTE | 2018-03-19 17:03 | RAD REPORT ---
EXAM DESCRIPTION: RAD - Chest Single View - 03/19/2018 4:25 pm CLINICAL HISTORY: Chest pain, shortness of breath COMPARISON: January 25 TECHNIQUE: AP portable chest image was obtained 1618 hours . FINDINGS: Lungs are clear. Lung markings are similar to comparison. Shallow inspiration accentuates heart, vasculature and lung markings. Sternotomy wires are in place. Double-lumen dialysis catheter i s present. Heart and vasculature are normal. No measurable pleural effusion and no pneumothorax. No a cute bony abnormality seen. No acute aortic findings suspected. IMPRESSION: No acute cardiopulmonary process. No significant interval change.
[2018-03-19] MEDS ORDERED: MAGNESIUM SULFATE 1 gm IVPB 1 GM/100 ML BAG IV ONE (17:19)
[2018-03-19] MEDS ORDERED: NITROGLYCERIN 1 GM PKT TD ONE (17:19)
--- NOTE | 2018-03-19 17:25 | EDPHYS ---
Physician Documentation [facility] Name: Julien Parikh Age: 67 yrs Sex: Male : 1950 Arrival Date: 03/19/2018 Time: 15:58 Bed 15 Private MD: ED Physician Sean Lloyd HPI: 03/19 16:05 This 67 yrs old Black Male presents to ER via EMS with complaints of chest pain, cp shortness of breath. 16:05 The patient or guardian reports chest pain that is located primarily in the anterior cp chest wall. 16:05 Onset: today. The pain does not radiate. Associated signs and symptoms: Pertinent cp positives: shortness of breath, Pertinent negatives: cough, diaphoresis, lower extremity pain, lower extremity swelling, syncope. Duration: The patient or guardian reports a single episode, that is still ongoing. Patient reports missing dialysis for approximately 1 month. Historical: - Allergies: 16:04 PENICILLINS; em - Home Meds: 18:26 Advair Diskus 250-50 mcg/dose Inhl dsdv 1 puff 2 times per day [Active]; aspirin 81 mg iw Oral chew 1 tab once daily [Active]; atorvastatin 80 mg Oral tab 1 tab nightly [Active]; BRILINTA 90 mg Oral tab 1 tab 2 times per day [Active]; carvedilol 25 mg Oral tab 1 tab 2 times per day [Active]; hydralazine 50 mg Oral tab 2 tab 2 times per day [Active]; isosorbide mononitrate 60 mg Oral Tb24 1 tab once daily [Active]; metoprolol tartrate 25 mg Oral tab 2 tabs 2 times per day [Active]; Norvasc 5 mg Oral tab 1 tab once daily [Active]; Pepcid Oral [Active]; Ranexa 1,000 mg Oral Tb12 1 tab 2 times per day [Active]; Renagel 800 mg Oral tab 2 tabs 3 times per day [Active]; Renvela 800 mg Oral tab 2 tabs 3 times per day [Active]; - PMHx: 16:04 Asthma; CHF; chronic kidney disease; COPD; CVA; Dialysis T-Th-Sat; ESRD; Hepatitis; em Hypertension; L arm paralysis; L sided weakness from CVA; Myocardial infarction; triple bypass; ADD/ADHD; - PSHx: 18:40 CABG; Appendectomy; iw - Immunization history:: Adult Immunizations up to date. - Social history:: Smoking status: Patient uses tobacco products, smokes one pack cigarettes per day. - Ebola Screening: : Patient negative for fever greater than or equal to 101.5 degrees Fahrenheit, and additional compatible Ebola Virus Disease symptoms Patient denies exposure to infectious person Patient denies travel to an Ebola-affected area in the 21 days before illness onset No symptoms or risks identified at this time. ROS: 16:10 Constitutional: Negative for body aches, chills, fever, poor PO intake. cp 16:10 Cardiovascular: Positive for chest pain, Negative for edema, palpitations. cp 16:10 Respiratory: Positive for shortness of breath, Negative for cough, wheezing. 16:10 Abdomen/GI: Negative for abdominal pain, nausea, vomiting, and diarrhea. 16:10 Skin: Negative for cellulitis, rash. 16:10 Neuro: Negative for altered mental status, dizziness, headache, weakness. 16:10 All other systems are negative. Exam: 16:20 ECG was reviewed by the Attending Physician. cp 16:20 Constitutional: The patient appears in no acute distress, alert, awake, cp non-diaphoretic, non-toxic, well developed, well nourished. 16:20 Head/Face: Normocephalic, atraumatic. cp 16:20 Eyes: Periorbital structures: appear normal, Conjunctiva: normal, no exudate, no injection, Sclera: no appreciated abnormality, Lids and lashes: appear normal, bilaterally. 16:20 ENT: External ear(s): are unremarkable, Nose: is normal, Mouth: Lips: moist, Oral mucosa: moist, Posterior pharynx: is normal, airway is patent, no erythema, no exudate. 16:20 Neck: ROM/movement: is normal, is supple, without pain, no range of motions limitations, no meningismus, no nuchal rigidity. 16:20 Chest/axilla: Inspection: normal, Palpation: is normal, no crepitus, no tenderness. 16:20 Cardiovascular: Rate: tachycardic, Rhythm: regular, Edema: is not appreciated, JVD: is not appreciated. 16:20 Respiratory: the patient does not display signs of respiratory distress, Respirations: normal, no use of accessory muscles, no retractions, no splinting, no tachypnea, labored breathing, is not present, Breath sounds: are clear throughout, no stridor, no wheezing. 16:20 Abdomen/GI: Inspection: abdomen appears normal, Bowel sounds: active, all quadrants, Palpation: abdomen is soft and non-tender, in all quadrants. 16:20 Back: pain, is absent, ROM is normal. 16:20 Skin: cellulitis, is not appreciated, no rash present. 16:20 Neuro: Orientation: to person, place \T\ time. Mentation: lucid, able to follow commands, Cerebellar function: no acute changes, Motor: no acute changes, Sensation: no acute changes. 16:52 ECG was reviewed by the Attending Physician. cp Vital Signs: 16:04 BP 198 / 106; Pulse 103; Resp 22; Temp 98.2(O); Pulse Ox 97% on R/A; Weight 71.67 kg; em Height 5 ft. 8 in. (172.72 cm); Pain 8/10; 16:22 BP 170 / 101; Pulse 104; Resp 20 S; Pulse Ox 96% on R/A; iw 16:48 BP 178 / 101; Pulse 94; Resp 18; Pulse Ox 96% on R/A; Pain 8/10; iw 17:06 BP 165 / 86; Pulse 90; Resp 18 S; Pulse Ox 98% on R/A; iw 18:30 BP 173 / 94; Pulse 90; Resp 16; Pulse Ox 97% on R/A; Pain 8/10; iw 19:06 BP 179 / 90; Pulse 91; Resp 16; Pulse Ox 97% on R/A; iw 20:30 BP 177 / 77; Pulse 97; Resp 20 S; Pulse Ox 98% on R/A; cc3 21:00 BP 175 / 98; Pulse 100; Resp 20 S; Pulse Ox 97% on R/A; cc3 16:04 Body Mass Index 24.02 (71.67 kg, 172.72 cm) em MDM: 16:00 Differential diagnosis: abnormal EKG, acute myocardial infarction, congestive heart cp failure pericarditis, pleurisy, pneumonia, pneumothorax, stable angina, unstable angina. 16:01 Patient medically screened. cp 16:34 Physician consultation: Jono Hauser MD was called at 16:35, was contacted at 16:35, cp regarding consult, review of patient's EKG. 17:11 Physician consultation: Jono Hauser MD was contacted at 17:11, recommend aspirin, cp beta blockers, and nitro as needed. 17:21 The patient was given aspirin in the Emergency Department. Data reviewed: vital signs, cp nurses notes, lab test result(s), EKG, radiologic studies, plain films. Test interpretation: by ED physician or midlevel provider: ECG, plain radiologic studies. Physician consultation: Dion Krishnamurthy MD was called at 17:22, was contacted at 17:22, regarding admission, to the ICU. 18:30 ED course: VSS. Pain and symptoms improved. Consult with DR Lloyd who feels patient cp stable for admission to tele floor bed for continued monitroing. 03/19 15:59 Order name: Basic Metabolic Panel; Complete Time: 16:59 03/19 17:01 Interpretation: Normal except: CL 113; BUN 34; CRE 5.04; GFR 14; CA 8.2. 03/19 15:59 Order name: CBC with Diff; Complete Time: 16:59 03/19 16:59 Interpretation: Normal except: RBC 3.34; HGB 11.1; HCT 32.8; PLT 148. 03/19 15:59 Order name: LFT's; Complete Time: 16:59 03/19 17:01 Interpretation: Normal except: GLOB 4.4; A/G 0.9. 03/19 15:59 Order name: Magnesium; Complete Time: 16:59 03/19 15:59 Order name: NT PRO-BNP; Complete Time: 16:59 03/19 15:59 Order name: PT-INR; Complete Time: 16:59 03/19 15:59 Order name: Troponin (emerg Dept Use Only); Complete Time: 16:59 03/19 17:00 Interpretation: Abnormal: TROPED 0.24. 03/19 15:59 Order name: XRAY Chest (1 view); Complete Time: 17:07 03/19 15:59 Order name: EKG; Complete Time: 16:01 03/19 15:59 Order name: Cardiac monitoring; Complete Time: 16:15 03/19 15:59 Order name: EKG - Nurse/Tech; Complete Time: 16:15 03/19 15:59 Order name: IV Saline Lock; Complete Time: 16:24 cp 03/19 15:59 Order name: Labs collected and sent; Complete Time: 16:24 cp 03/19 15:59 Order name: O2 Per Protocol; Complete Time: 16:24 cp 03/19 15:59 Order name: O2 Sat Monitoring; Complete Time: 16:24 cp EC:20 Rate is 100 beats/min. Rhythm is regular. OK interval is normal. QRS interval is cp normal. QT interval is normal. T waves are Inverted in leads aVL, aVF, V5, V6. ST Segment is depressed in leads II, III. Interpreted by me. Reviewed by me. 16:52 Rate is 97 beats/min. Rhythm is regular. OK interval is normal. QRS interval is normal. cp QT interval is prolonged at 366 msec. T waves are Inverted in leads II, III, aVF, V5, V6. ST Segment is depressed in lead II. Interpreted by me. Reviewed by me. Administered Medications: 16:18 Drug: Nitroglycerin 0.4 mg Route: Sublingual; iw 16:18 Drug: Aspirin Chewable Tablet 324 mg Route: PO; iw 19:15 Follow up: Response: No adverse reaction iw 16:25 Drug: Nitroglycerin 0.4 mg Route: Sublingual; iw 17:00 Follow up: Response: No adverse reaction; Pain is decreased; Blood pressure is lowered iw 17:18 Drug: Nitro-Bid Ointment 2 % 0.5 inches Route: Transdermal; Site: anterior chest wall; iw 17:19 Drug: Magnesium Sulfate 1 grams Route: IVPB; Infused Over: 1 hrs; Site: right hand; iw 18:20 Follow up: IV Status: Completed infusion iw 19:05 Drug: morphine 2 mg Route: IVP; Site: right hand; iw 19:15 Follow up: Response: No adverse reaction; Pain is decreased iw 19:05 Drug: Metoprolol 50 mg Route: PO; iw 19:15 Follow up: Response: No adverse reaction iw Disposition: 21:30 Chart complete. cp Disposition: 03/19/18 17:24 Hospitalization ordered by Dion Krishnamurthy for Inpatient Admission. Preliminary diagnosis are Chest pain, unspecified, End stage renal disease. - Bed requested for Telemetry/MedSurg (Inpatient). - Status is Inpatient Admission. cc3 - Condition is Fair. - Problem is new. - Symptoms have improved. UTI on Admission? No Addendum: 03/27/2018 13:01 Co-signature as Attending Physician, Sean Lloyd MD. g s Signatures: Dispatcher [employer] Ana Mayers, RN RN dw Bandar Mendoza, REGIONAL TANKER TRUCK DRIVER REGIONAL TANKER TRUCK DRIVER Josephine Chavis RN RN iw Solis, Maria ms Candy, Rigo, PA PA cp Sean Lloyd MD MD gs Cordel, Charlene cc3 Corrections: (The following items were deleted from the chart) 03/19 17:01 16:59 Normal except: CL 113; BUN 34; CRE 5.04; GFR 14. cp cp 18:45 17:24 Hospitalization Ordered by Dion Krishnamurthy MD for Inpatient Admission. Preliminary cp diagnosis is Chest pain, unspecified; End stage renal disease. Bed requested for Intensive Care Unit. Status is Inpatient Admission. Condition is Fair. Problem is new. Symptoms have improved. UTI on Admission? No. cp 19:21 18:45 03/19/2018 17:24 Hospitalization Ordered by Dion Krishnamurthy MD for Inpatient dw Admission. Preliminary diagnosis is Chest pain, unspecified; End stage renal disease. Bed requested for Telemetry/MedSurg (Inpatient). Status is Inpatient Admission. Condition is Fair. Problem is new. Symptoms have improved. UTI on Admission? No. cp 19:53 19:21 03/19/2018 17:24 Hospitalization Ordered by Dion Krishnamurthy MD for Inpatient ms Admission. Preliminary diagnosis is Chest pain, unspecified; End stage renal disease. Bed requested for [facility] ER HOLD. Status is Inpatient Admission. Condition is Fair. Problem is new. Symptoms have improved. UTI on Admission? No. dw 19:54 19:53 03/19/2018 17:24 Hospitalization Ordered by Dion Krishnamurthy MD for Inpatient dw Admission. Preliminary diagnosis is Chest pain, unspecified; End stage renal disease. Bed requested for Telemetry/MedSurg (Inpatient). Status is Inpatient Admission. Condition is Fair. Problem is new. Symptoms have improved. UTI on Admission? No. ms 21:25 19:54 03/19/2018 17:24 Hospitalization Ordered by Dion Krishnamurthy MD for Inpatient cc3 Admission. Preliminary diagnosis is Chest pain, unspecified; End stage renal disease. Bed requested for Telemetry/MedSurg (Inpatient). Status is Inpatient Admission. Condition is Fair. Problem is new. Symptoms have improved. UTI on Admission? No. dw
--- NOTE | 2018-03-19 17:25 | ER ---
Nurse's Notes [facility] Name: Julien Parikh Age: 67 yrs Sex: Male : 1950 Arrival Date: 03/19/2018 Time: 15:58 Bed 15 Private MD: Diagnosis: Chest pain, unspecified;End stage renal disease Presentation: 03/19 15:58 Presenting complaint: EMS states: called out for shortness of breath, on scene SPO2 em 95-96% RA, given albuterol treatment en route to hospital SPO2 100% after treatment, was seen here in the ER earlier today and evaluated for shortness of breath, was only given breathing treatments, c/o chest pain that goes to left arm, pt reports has not had dialysis in about 1 month. Transition of care: patient was not received from another setting of care. Onset of symptoms was March 19, 2018. Risk Assessment: Do you want to hurt yourself or someone else? Patient reports no desire to harm self or others. Initial Sepsis Screen: Does the patient meet any 2 criteria? RR > 20 per min. HR > 90 bpm. Does the patient have a suspected source of infection? No. Patient's initial sepsis screen is negative. Care prior to arrival: Medication(s) given: Albuterol Neb x 1. 15:58 Method Of Arrival: EMS: [facility] em 16:08 Acuity: PERRI 3 iw Triage Assessment: 16:04 General: Appears in no apparent distress. comfortable, Behavior is calm, cooperative. em Pain: Complains of pain in chest Pain radiates to right arm Pain currently is 8 out of 10 on a pain scale. Historical: - Allergies: 16:04 PENICILLINS; em - Home Meds: 18:26 Advair Diskus 250-50 mcg/dose Inhl dsdv 1 puff 2 times per day [Active]; aspirin 81 mg iw Oral chew 1 tab once daily [Active]; atorvastatin 80 mg Oral tab 1 tab nightly [Active]; BRILINTA 90 mg Oral tab 1 tab 2 times per day [Active]; carvedilol 25 mg Oral tab 1 tab 2 times per day [Active]; hydralazine 50 mg Oral tab 2 tab 2 times per day [Active]; isosorbide mononitrate 60 mg Oral Tb24 1 tab once daily [Active]; metoprolol tartrate 25 mg Oral tab 2 tabs 2 times per day [Active]; Norvasc 5 mg Oral tab 1 tab once daily [Active]; Pepcid Oral [Active]; Ranexa 1,000 mg Oral Tb12 1 tab 2 times per day [Active]; Renagel 800 mg Oral tab 2 tabs 3 times per day [Active]; Renvela 800 mg Oral tab 2 tabs 3 times per day [Active]; - PMHx: 16:04 Asthma; CHF; chronic kidney disease; COPD; CVA; Dialysis T-Th-Sat; ESRD; Hepatitis; em Hypertension; L arm paralysis; L sided weakness from CVA; Myocardial infarction; triple bypass; ADD/ADHD; - PSHx: 18:40 CABG; Appendectomy; iw - Immunization history:: Adult Immunizations up to date. - Social history:: Smoking status: Patient uses tobacco products, smokes one pack cigarettes per day. - Ebola Screening: : Patient negative for fever greater than or equal to 101.5 degrees Fahrenheit, and additional compatible Ebola Virus Disease symptoms Patient denies exposure to infectious person Patient denies travel to an Ebola-affected area in the 21 days before illness onset No symptoms or risks identified at this time. Screenin:27 Abuse screen: Denies threats or abuse. Denies injuries from another. Nutritional iw screening: No deficits noted. Tuberculosis screening: No symptoms or risk factors identified. Fall Risk IV access (20 points). Assessment: 16:00 General: Appears in no apparent distress. Behavior is calm, cooperative. iw 16:00 Pain: Complains of pain in anterior aspect of left upper chest and mid-sternal area iw Pain currently is 8 out of 10 on a pain scale. Pain began 0300 this morning. Neuro: Level of Consciousness is awake, alert, obeys commands, Oriented to person, place, time, situation, Moves all extremities. Full function. Cardiovascular: Reports chest pain, shortness of breath. Cardiovascular: Capillary refill < 3 seconds in bilateral fingers Dialysis shunt: in the anterior aspect of right upper chest, with no erythema, with no edema, no bleeding noted. Respiratory: Respiratory effort is even, unlabored, Respiratory pattern is regular, symmetrical. GI: Abdomen is flat, non-distended. Derm: Skin is normal. Musculoskeletal: Range of motion: intact in all extremities. 16:27 Reassessment: Patient appears in no apparent distress at this time. Patient states iw feeling better. 16:49 Reassessment: repeat EKG ordered. iw 17:07 Reassessment: Patient appears in no apparent distress at this time. Patient and/or iw family updated on plan of care and expected duration. Pain level reassessed. Patient is alert, oriented x 3, equal unlabored respirations, skin warm/dry/pink. 18:19 Reassessment: Patient appears in no apparent distress at this time. Patient and/or iw family updated on plan of care and expected duration. Pain level reassessed. Patient is alert, oriented x 3, equal unlabored respirations, skin warm/dry/pink. pt states pain 8/10. 18:30 Reassessment: Patient appears in no apparent distress at this time. Patient and/or iw family updated on plan of care and expected duration. Pain level reassessed. 19:15 Reassessment: Patient appears in no apparent distress at this time. Patient and/or cc3 family updated on plan of care and expected duration. Pain level reassessed. Patient is alert, oriented x 3, equal unlabored respirations, skin warm/dry/pink. Received this male patient for admission as a case of chest pain. With IV cannula gauge 24 at the right hand saline locked. Noted with right upper chest hemodialysis access, and noted a nitro bid patch on the left upper chest. 20:30 Reassessment: Patient appears in no apparent distress at this time. Patient and/or cc3 family updated on plan of care and expected duration. Pain level reassessed. Patient is alert, oriented x 3, equal unlabored respirations, skin warm/dry/pink. Room available in 425 but no admission orders still from Dr. Krishnamurthy in [facility], was told that Dr. Andrews will be the admitting physician so called Dr. Andrews and he said that Dr. Krishnamurthy told him the patient will be for ICU admission and that Dr. Krishnamurthy will be the one to write the admission orders. Informed charge nurse Feli. 21:10 Reassessment: Patient appears in no apparent distress at this time. Patient and/or cc3 family updated on plan of care and expected duration. Pain level reassessed. Patient is alert, oriented x 3, equal unlabored respirations, skin warm/dry/pink. Report handed over to SUMI Lazo for continuity of care. 21:20 Reassessment: Patient left ER vitally stable by stretcher escorted by equipment tech Jose.[email or web address] Vital Signs: 16:04 BP 198 / 106; Pulse 103; Resp 22; Temp 98.2(O); Pulse Ox 97% on R/A; Weight 71.67 kg; em Height 5 ft. 8 in. (172.72 cm); Pain 8/10; 16:22 BP 170 / 101; Pulse 104; Resp 20 S; Pulse Ox 96% on R/A; iw 16:48 BP 178 / 101; Pulse 94; Resp 18; Pulse Ox 96% on R/A; Pain 8/10; iw 17:06 BP 165 / 86; Pulse 90; Resp 18 S; Pulse Ox 98% on R/A; iw 18:30 BP 173 / 94; Pulse 90; Resp 16; Pulse Ox 97% on R/A; Pain 8/10; iw 19:06 BP 179 / 90; Pulse 91; Resp 16; Pulse Ox 97% on R/A; iw 20:30 BP 177 / 77; Pulse 97; Resp 20 S; Pulse Ox 98% on R/A; cc3 21:00 BP 175 / 98; Pulse 100; Resp 20 S; Pulse Ox 97% on R/A; cc3 16:04 Body Mass Index 24.02 (71.67 kg, 172.72 cm) em ED Course: 15:58 Patient arrived in ED. em 15:58 Rigo Gupta PA is PHCP. cp 15:58 Sean Lloyd MD is Attending Physician. cp 16:04 Josephine Brandon, SUMI is Primary Nurse. iw 16:04 Arm band placed on. em 16:08 Triage completed. iw 16:14 EKG done, by ED staff, reviewed by Rigo MOCTEZUMA. [facility] 16:21 Initial lab(s) drawn, by wa, sent to lab. Inserted saline lock: 24 gauge in right hand, iw using aseptic technique. Blood collected. 16:24 X-ray completed. Portable x-ray completed in exam room. Patient tolerated procedure kp1 well. 16:25 XRAY Chest (1 view) In Process Unspecified. EDMS 17:23 Dion Krishnamurthy MD is Hospitalizing Provider. cp 19:15 Patient has correct armband on for positive identification. Placed in gown. Bed in low cc3 position. Call light in reach. Side rails up X 1. surveillance monitor on. Pulse ox on. NIBP on. 21:10 No provider procedures requiring assistance completed. Patient admitted, IV remains in cc3 place. Administered Medications: 16:18 Drug: Nitroglycerin 0.4 mg Route: Sublingual; iw 16:18 Drug: Aspirin Chewable Tablet 324 mg Route: PO; iw 19:15 Follow up: Response: No adverse reaction iw 16:25 Drug: Nitroglycerin 0.4 mg Route: Sublingual; iw 17:00 Follow up: Response: No adverse reaction; Pain is decreased; Blood pressure is lowered iw 17:18 Drug: Nitro-Bid Ointment 2 % 0.5 inches Route: Transdermal; Site: anterior chest wall; iw 17:19 Drug: Magnesium Sulfate 1 grams Route: IVPB; Infused Over: 1 hrs; Site: right hand; iw 18:20 Follow up: IV Status: Completed infusion iw 19:05 Drug: morphine 2 mg Route: IVP; Site: right hand; iw 19:15 Follow up: Response: No adverse reaction; Pain is decreased iw 19:05 Drug: Metoprolol 50 mg Route: PO; iw 19:15 Follow up: Response: No adverse reaction iw Outcome: 17:24 Decision to Hospitalize by Provider. cp 21:10 Admitted to Tele accompanied by tech, via stretcher, room 425, with chart, Report cc3 called to SUMI Lazo 21:10 Condition: stable 21:10 Instructed on the need for admit, Demonstrated understanding of instructions. 21:25 Patient left the ED. cc3 Signatures: Dispatcher [employer] Bandar Holman, TEENA DISH ROOM WORKER Josephine Chavis RN RN Rigo Ramires PA PA cp Martinez, Marianne 5 Tasha Foley 1 Bessy Garcia cc3 Corrections: (The following items were deleted from the chart) 16:07 16:04 BP 198 / 106; Pulse 103bpm; Resp 22bpm; Pulse Ox 97% RA; 71.67 kg; Height 5 ft. 8 em in.; BMI: 24.0; Pain 8/10; em 19:14 16:00 General: Appears in no apparent distress. iw iw
[2018-03-19] MEDS ORDERED: METOPROLOL TAR 50 MG TAB ONE (18:58)
[2018-03-19] MEDS ORDERED: MORPHINE 4 MG/ML SYR ONE (18:59)
[2018-03-19] MEDS ORDERED: ACETAMINOPHEN 500 MG TAB PO PRN (20:40)
[2018-03-19] MEDS: METOPROLOL TAR 50 MG TAB PO SCH (21:00)
[2018-03-19] MEDS ORDERED: METOPROLOL TARTRATE 5 MG/5 ML INJ IV STA (21:53)
[2018-03-19] MEDS ORDERED: FUROSEMIDE 40 MG/4 ML VIAL IV ONE (21:56)
[2018-03-19] MEDS: MORPHINE 4 MG/ML SYR IV PRN (23:01)
[2018-03-20] MEDS ORDERED: METHYLPREDNISOLONE 125 MG INJ IV ONE (00:32)
[2018-03-20] MEDS: ALBUTEROL 2.5 MG/3 ML NEB SOL NEB PRN ×2 (01:08→16:06)
[2018-03-20] MEDS: MORPHINE 4 MG/ML SYR IV PRN ×3 (02:54→23:38)
[2018-03-20] MEDS ORDERED: MORPHINE 4 MG/ML SYR IV ONE (05:15)
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
--- NOTE | 2018-03-20 07:03 | EKG ---
Test Date: 2018-03-19 Test Time: 16:12:05 Supervisor Soldering: MELISSA MEASUREMENT RESULTS: Intervals: Rate: 100 AZ: 128 QRSD: 84 QT: 356 QTc: 459 [place]: P: 85 AZ: 128 QRS: 22 T: 232 INTERPRETIVE STATEMENTS: Sinus rhythm with occasional premature ventricular complexes Minimal voltage criteria for LVH, may be normal variant ST & T wave abnormality, consider inferolateral ischemia Abnormal ECG Compared to ECG 01/25/2018 16:35:49 Ventricular premature complex(es) now present Prolonged QT interval no longer present ST (T wave) deviation still present Possible ischemia still present Electronically Signed On 03-20-18 07:02:31 BAKERY MACHINE MECHANIC SUPERVISOR by Jono Hauser
[2018-03-20 07:12] LABS: Absolute Lymphocytes (CBC) 0.6 K/uL (0.7-4.9); Absolute Monocytes 0.1 K/uL (0.1-1.3); Absolute Neutrophil 6.2 K/uL (1.8-8.0); Basophils % 0.3 % (0-1.3); Eosinophils % 0.1 % (0-4.4); Hematocrit 34.6 % (39.6-49.0); Lymphocytes % 8.3 % (15.3-44.8); MCH 32.9 pg (27.0-35.0); MCV 98.3 fL (80-100); MPV 10.7 fL (7.6-11.3); RBC Red Blood Cell Count 3.52 M/uL (4.33-5.43)
--- NOTE | 2018-03-20 07:20 | EKG ---
Test Date: 2018-03-19 Test Time: 16:47:16 Research Environmental Engineer: MELISSA MEASUREMENT RESULTS: Intervals: Rate: 97 LA: 130 QRSD: 84 QT: 366 QTc: 464 [place]: P: 78 LA: 130 QRS: 20 T: 241 INTERPRETIVE STATEMENTS: Sinus rhythm with occasional premature supraventricular complexes Possible Left atrial enlargement ST & T wave abnormality, consider inferolateral ischemia Prolonged QT Abnormal ECG Compared to ECG 03/19/2018 16:12:05 Prolonged QT interval now present Left ventricular hypertrophy no longer present ST (T wave) deviation still present Electronically Signed On 03-20-18 07:19:52 HAT PARTS CUTTER MACHINE by Luis Eduardo Alanis
[2018-03-20 08:29] LABS: Troponin I 0.17 ng/mL (0.0-0.045)
[2018-03-20 08:31] LABS: Potassium 5.7 mmol/L (3.5-5.1)
[2018-03-20] MEDS: METOPROLOL TAR 50 MG TAB PO SCH ×2 (08:46→20:21)
[2018-03-20] MEDS: ASPIRIN EC 81 MG TAB PO SCH (08:46)
[2018-03-20] MEDS: ENOXAPARIN 30 MG/0.3 ML SQ SCH (08:47)
[2018-03-20] MEDS: COLCHICINE 0.6 MG TAB PO PRN ×2 (08:47→20:21)
[2018-03-20] MEDS ORDERED: MANNITOL 25% 12.5 GM/50 ML VIAL IV PRN (09:10)
[2018-03-20] MEDS ORDERED: NA CHLORIDE 0.9% 1,000 ML IV PRN (09:10)
[2018-03-20] MEDS ORDERED: EPOETIN ALFA 10,000 UNIT/ML VIAL IV SCH (09:15)
[2018-03-20] MEDS ORDERED: ALBUMIN HUMAN 25% 50 ML IV SCH (10:00)
--- NOTE | 2018-03-20 12:22 | CON ---
Chief Complaint: Dyspnea and chest pain. History Of Present Illness: Mr. Parikh is a gentleman, who has known coronary heart disease, but we do not really think he is having a coronary syndrome right now. Mr. Parikh has chest pain that is very much pleuritic. It only happens when he takes a deep breath. For a month, he has stopped dialy sis, and last Tuesday 6 days ago, he resumed dialysis. The last week, he had dialysis on Tuesday, , and Tuesday. He is scheduled to get it again tomorrow. He has had a cardiac cath fairly re cently. He is not having chest pain that sounds anything like angina and sounds like the pericardial disease that some people get on dialysis. He has had bypass surgery in the past. His cardiac cath was in June of this year. He has had a left internal mammary and saphenous vein graft to the [facility]. He had modest disease in the vessels that were not bypassed, so we thought he should be in good shape for a while. The cardiac cath was extremely different from what his stress test had suggested. Medications: His outpatient medications now are Lipitor 80, aspirin 81, isosorbide mononitrate, amauri lamer, amlodipine, Symbicort, carvedilol, Ranexa, hydralazine, Protonix, sucralfate, and Combivent. Physical Examination: General: He is alert, oriented, pleasant. He does not appear to be in any distress. HEENT: Normal. Lungs: Clear. Heart: Reveals an S4 gallop. No significant murmur. Abdomen: Soft. Extremities: Normal. Laboratory Data: His troponin is 0.24 and 0.27. His lipid panel is excellent. His HDL cholesterol is 49, LDL is only 87. His creatinine is 5.04. Impression: Mr. Parikh is having pericardial pain or some other pleuritic chest pain. We will give him colchicine to take in addition to what he is on and we will see if that will help him. I suspec t it will be very helpful to him. MARYAM/NELLA Voice ID: [id number] Report ID: [id number]
--- NOTE | 2018-03-20 16:04 | ECHO ---
HEIGHT: 5 ft 8 in WEIGHT: 160 lb 11.2 oz DATE OF STUDY: 03/20/[address]: Eric Andrews MD 2-DIMENSIONAL: YES M.MODE: YES DOPPLER: YES COLOR FLOW: YES TDS: YES PORTABLE: NO DEFINITY: NO BUBBLE STUDY: NO DIAGNOSIS: CONGESTIVE HEART FAILURE CARDIAC HISTORY: CATHERIZATION: NO SURGERY: NO PROSTHETIC VALVE: NO PACEMAKER: NO MEASUREMENTS (cm) DIASTOLIC (NORMALS) SYSTOLIC (NORMALS) IVSd 1.4 (0.6-1.2) LA Diam (1.9-4.0) LVEF 43% LVIDd 5.2 (3.5-5.7) LVIDs 4.1 (2.0-3.5) %FS 21% LVPWd 1.3 (0.6-1.2) Ao Diam (2.0-3.7) 2 DIMENSIONAL ASSESSMENT: RIGHT ATRIUM: DILATED LEFT ATRIUM: DILATED RIGHT VENTRICLE: NORMAL LEFT VENTRICLE: LEFT VENTRICULAR HYPERTROPHY TRICUSPID VALVE: NORMAL MITRAL VALVE: NORMAL PULMONIC VALVE: NORMAL AORTIC VALVE: NORMAL PERICARDIAL EFFUSION: NONE AORTIC ROOT: NORMAL LEFT VENTRICULAR WALL MOTION: GLOBAL HYPOKINESIS. DOPPLER/COLOR FLOW: MILD MITRAL AND TRICUSPID REGURGITATION. NORMAL RIGHT VENTRICULAR SYSTOLIC PRESSURE. COMMENTS: DEPRESSED LEFT VENTRICULAR EJECTION FRACTION. DILATED RIGHT AND LEFT ATRIUM. LEFT VENTRICULAR HYPERTROPHY. MILD MITRAL AND TRICUSPID REGURGITATION. TECHNOLOGIST: JUAN SUTHERLAND
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
--- NOTE | 2018-03-21 00:10 | P.PN ---
Subjective Date of Service: 03/21/18 Chief Complaint: ESRD Patient seen and examined at bedside. Case discussed with nursing staff, chart reviewed. No acute events overnight, patient pending HD today. Reports unchanged symtpoms Review of Systems As noted Physical Examination - Vital Signs Temperature: 99.4 F Blood Pressure: 135/74 Pulse: 85 Respirations: 18 Pulse Ox (%): 96 Assessment And Plan - Plan Chest pain, R/O Continue current medications Cardiology consulted, ,Recs appreciated Pain control IVF ECHO ordered, pending Symtomatic treatment ESRD on HD. Nephrology consulted,Recomendations appreciated Pending HD today Hyperkalemia. He is pending HD today HTN with CKD. Will restart home medicatinos as needed Diastolic CHF, chronic. ECHO pending Continue BB, Anemia in chronic illness. Monitor via H&H DVT Prophylaxis: GI prophylaxis: Diet: Dispo: Pending symptomatic improvement.
[2018-03-21 05:11] LABS: Magnesium 1.5 mg/dL (1.8-2.4)
[2018-03-21] MEDS: MORPHINE 4 MG/ML SYR IV PRN ×3 (05:23→14:48)
[2018-03-21 05:45] VITALS: BMI 23.7
[2018-03-21] MEDS ORDERED: Magnesium Sulfate 2gm IVPB 2 G/50 ML BAG IV ONE (05:53)
[2018-03-21] MEDS: ENOXAPARIN 30 MG/0.3 ML SQ SCH (09:09)
[2018-03-21] MEDS: METOPROLOL TAR 50 MG TAB PO SCH (09:09)
[2018-03-21] MEDS: ASPIRIN EC 81 MG TAB PO SCH (09:09)
[2018-03-21] MEDS ORDERED: SEVELAMER CARBONATE 800 MG TABLET PO SCH (12:30)
--- NOTE | 2018-03-21 13:25 | PN ---
Date of Progress Note: 03/21/[address] Connell's service on 03/19/2018. History Of Present Illness: Mr. Parikh had come in with chest pain. He has not had his dialysis fo r approximately a month. Dr. Alanis started the patient on colchicine for what sounded like a pleuri tic inflammatory type of chest pain. Today, he is pain free. Echocardiogram showed no effusion. Ej ection fraction 43%. He had dialysis yesterday. He is going to have dialysis again today. He is as ymptomatic. We will continue his present regimen. We will be available for questions if the need ar ise. VERA/NELLA Voice ID: [id number] Report ID: [id number]
[2018-03-21 13:29] VITALS: O2SAT 100
[2018-03-21 14:20] VITALS: BP 129/56; TEMP 97
[2018-03-21] MEDS ORDERED: PANTOPRAZOLE 40MG TABLET PO SCH (16:30)
[2018-03-21] MEDS ORDERED: HYDRALAZINE HCL 25 MG TABLET PO SCH (21:00)
[2018-03-21] MEDS ORDERED: TICAGRELOR 90 MG TABLET PO SCH (21:00)
[2018-03-21] MEDS ORDERED: CARVEDILOL 25 MG TAB PO SCH (21:00)
--- NOTE | 2018-03-22 04:42 | DS ---
Date of Discharge: 03/21/2018 Consultants: Dr. Alanis and Dr. Hauser with Cardiology, Dr. Fitzgerald with Nephrology. Discharge Diagnoses: 1. Chest pain. 2. End-stage renal disease, on hemodialysis. 3. Hyperkalemia. 4. Essential hypertension. 5. Diastolic congestive heart failure, chronic. 6. Anemia of chronic disease. Hospital Course: The patient is a 67-year-old male, comes in with complaints of chest pain. The patient does have some known compliance issues, has not been in dialysis, usually follows with Dr. Dela Cruz with Cardiology and Dr. Fitzgerald with Nephrology. The patient was restarted on dialysis. His chest pain was likely related to missed dialysis. He did have some electrolyte abnormalities, which were corrected. Magnesium was low. Potassium was high. He did have some elevated troponin level, however, this is not felt to be ACS. Dr. Alanis and Dr. Hauser saw the patient as well, felt that he has atypical chest pain or pleuritic chest pain and was started on colchicine. The patient did have improvement in his symptoms. The patient did well with hemodialysis. His symptoms improved. His vital signs were stable. The patient's cholesterol panel was normal. The patient has been cleared for discharge from Cardiology, Nephrology standpoint. He was sent home in stable condition. Activity: As tolerated. Medications: As per medication reconciliation list. Followup: Follow up with primary care physician in 2 to 3 days. Follow up with primary cream buyer, Dr. Dela Cruz, in 2 weeks. Follow up with implant polisher, Dr. Fitzgerald, in 2 weeks. Keep hemodialysis sessions. Return for worsening condition. Diet: Low-sodium, fluid-restricted diet. Renal diet. Physical Examination: General: Awake, alert, oriented x3. No acute distress. Elderly male. CV: S1, S2. No murmurs. Respiratory: Moving air well bilaterally. Abdomen: Soft, nontender, nondistended. Positive bowel sounds. Extremities: No clubbing, cyanosis. Trace pedal edema. Neuro: Nonfocal. Code Status: Full. ADDENDUM: Patient refused hemodialysis and ended up leaving AMA. Was counseled against leaving before hemodialysis SA/MODL Voice ID: [id number] Report ID: [id number] MTDD
[2018-03-22] MEDS ORDERED: ISOSORBIDE MONO SR 30 MG TAB PO SCH (09:00)
== END 2018-03-21 15:55 | disposition left against medical advice (07) ==
LOC: ER 15:55 → INTOOBSV 17:23 → ERHOLD 17:23 → 4TH 21:11
PROVIDERS: ADMIT Hospitalist; ATTEND Hospitalist
DX: R07.9 Chest pain, unspecified (principal); I13.2 Hypertensive heart and chronic kidney disease with heart failure and with stage 5 chronic kidney disease, or end stage renal disease; N18.6 End stage renal disease; I50.32 Chronic diastolic (congestive) heart failure; Z99.2 Dependence on renal dialysis; Z91.15 Patient's noncompliance with renal dialysis; E87.5 Hyperkalemia; D63.1 Anemia in chronic kidney disease; J44.9 Chronic obstructive pulmonary disease, unspecified; Z95.1 Presence of aortocoronary bypass graft; Z95.5 Presence of coronary angioplasty implant and graft; F17.210 Nicotine dependence, cigarettes, uncomplicated; Z88.0 Allergy status to penicillin
CPT/HCPCS: 36415 ×2; 71045; 80048 ×3; 80061; 80076; 83735 ×3; 83880; 84484 ×3; 85025 ×2; 85610; 90935; 93005 ×2; 93306; 94640; 96365; 96375; 99285; G0257; G0378 ×2; J1644 ×2; J1650 ×2; J1940; J2930; J3475 ×2; Q4081

== ENCOUNTER 2018-07-20 13:48 | Emergency (ER) | payer OTHER ==
[2018-07-20] MEDS ORDERED: MAGNESIUM SULF 1GM/2ML VIAL IV ONE (13:49)
[2018-07-20] MEDS ORDERED: LIDOCAINE 100 MG/5 ML SYRINGE IV ONE (13:49)
[2018-07-20] MEDS ORDERED: EPINEPHrine 1 MG/10 ML SYR IV ONE (13:49)
[2018-07-20] MEDS ORDERED: Caclcium Chloride 10% INJ SYR IV ONE (13:49)
[2018-07-20] MEDS ORDERED: AMIODARONE HCL 150 MG in D5W 100 ML IV STA (13:54)
[2018-07-20] MEDS ORDERED: AMIODARONE HCL 450 MG in D5W 241 ML IV SCH (14:00)
[2018-07-20] MEDS ORDERED: Magnesium Sulfate 2gm IVPB 2 G/50 ML BAG IV ONE (14:10)
--- NOTE | 2018-07-20 16:24 | ER ---
Nurse's Notes [facility] Name: Julien Parikh Age: 67 yrs Sex: Male : 1950 Arrival Date: 07/20/2018 Time: 13:51 Bed 3 Private MD: Diagnosis: Respiratory arrest;Cardiac arrest Presentation: 07/20 13:45 Presenting complaint: EMS states: called to pt residence for "asthma attack" by pt. Pt dm5 was wheezing upon arrival. Pt walked back into the house for wallet and came back out to ambulance. In route, pt "had a seizure" and was given 1 mg ativan IV. 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 Transition of care: patient was not received from another setting of care. Onset of symptoms was July 20, 2018. Risk Assessment: Do you want to hurt yourself or someone else? Unable to obtain. Care prior to arrival: CPR manually performed by EMS and is still in progress. 13:45 Method Of Arrival: EMS: [facility] dm5 13:45 Compressions began prior to arrival. dm5 13:45 Initial Sepsis Screen: Does the patient meet any 2 criteria? No. Patient's initial sv sepsis screen is negative. Does the patient have a suspected source of infection? No. Patient's initial sepsis screen is negative. 13:50 Acuity: PERRI 1 hb 15:59 Note CPR in progress started manually, in route by EMS. Pt was pulseless, asystole upon dm5 arrival, CPR continued. Historical: - Allergies: 15:38 PENICILLINS; dm5 - Immunization history:: Adult Immunizations unknown. - Social history:: Smoking status: unknown. - Ebola Screening: : Unable to complete screening because. Screenin:00 Abuse screen: unknown. Nutritional screening: unknown. Tuberculosis screening: unknown. sv Assessment: 13:45 Reassessment: Per Dr. Parsons, blue port of dialysis port accessed to administer dm5 medications while trying to insert femoral central line. Pt was pulseless and monitor showed asystole. CPR continued. 13:45 CPR assessment: unresponsive, no respiratory effort. dm5 13:45 Cardiac rhythm is asystole. dm5 13:45 Reassessment: CPR continued. dm5 13:49 Cardiac rhythm is asystole. dm5 13:49 Reassessment: cpr continued. dm5 13:50 Cardiac rhythm is PEA. dm5 13:50 Reassessment: cpr continued. dm5 13:51 Cardiac rhythm is V tach. dm5 13:51 Reassessment: cpr continued. dm5 13:52 CPR assessment: shock 200 joules. dm5 13:52 Reassessment: cpr continued. dm5 13:53 Cardiac rhythm is V tach. dm5 13:53 Reassessment: cpr continued. dm5 13:54 CPR assessment: shock 200 joules. dm5 13:54 Reassessment: cpr continued. dm5 13:55 Cardiac rhythm is asystole. dm5 13:55 Reassessment: cpr continued. dm5 13:56 Cardiac rhythm is V tach. dm5 13:56 CPR assessment: shock 200 joules. dm5 13:56 Reassessment: cpr continued. dm5 13:59 Cardiac rhythm is V fib. dm5 13:59 CPR assessment: shock 200 joules. dm5 13:59 Reassessment: cpr continued. dm5 14:00 CPR assessment: shock 200 joules. dm5 14:00 Reassessment: cpr continued. dm5 14:03 Cardiac rhythm is V fib. dm5 14:03 CPR assessment: shock 200 joules. dm5 14:03 Reassessment: cpr continued. dm5 14:06 Cardiac rhythm is asystole. dm5 14:06 Reassessment: cpr continued. dm5 14:10 Cardiac rhythm is V fib. dm5 14:10 CPR assessment: shock 200 joules. dm5 14:10 Reassessment: cpr continued. dm5 14:12 Cardiac rhythm is V tach. dm5 14:12 Cardiac rhythm is asystole. dm5 14:12 CPR assessment: weak pulse but lost it quickly and pt went into asystole. dm5 14:12 Reassessment: compressions stopped for verification of heart wall movement with dm5 ultrasound. no movement noted. 14:13 Cardiac rhythm is asystole. dm5 14:40 Reassessment: PD and Supervisor White Sugar at bedside, notified no family has arrived for pt, unsure if sg they are aware the pt has been brought to the ED, PD officer reports he will attempt to reach family at the last known residence of pt and pt family, we will continue to call phone numbers listed in pt demographics. 17:06 Reassessment: Attempt to contact pt family at [phone], no answer, instructed to call sg back via voicemail. 20:21 Reassessment: pt body released to [facility] home per pt's brother request. . ak1 ED Course: 13:49 Assisted provider with intubation using 7.5 mm ETT via oral route. ET tube secured at dm5 22cm at the lips. Set up intubation tray. Intubated by Tank [id number] Patient tolerated pt unresponsive. 13:51 Patient arrived in ED. bd 13:57 Triage completed. hb 13:57 Assisted provider with central line placement. Set up central line tray. Triple lumen dm5 line placed in right femoral. Line placed by Rigo Parsons MD Placement verified by blood return, Dressed with Tegaderm, Before procedure, did Practitioner(s) obtain informed consent? No. Patient \\T\\ family education about procedure, CLABSI prevention and S/S of infection? No. Was handwashing/sanitizing done immediately prior to procedure? Yes. Was patient positioned to in a way to prevent air embolism? Yes. Was procedure site sterilized? Yes, with chlorhexidine. iodine. Was the site allowed to dry? Yes. During the procedure, did the Practitioner(s) maintain a sterile field? Were unused ports clamped during insertion? Yes. Was blood aspirated from each lumen? Yes. After the procedure, did the Practitioner(s) clean the site and apply a sterile dressing? Yes. 14:00 Patient has correct armband on for positive identification. sv 14:00 Arm band placed on. sv 14:20 Tank Ramos PA is [facility]. jr8 14:20 Rigo Parsons MD is Attending Physician. jr8 14:20 NOTIFIED [employer] TO NOTIFY TUMBLERS SUPERVISOR BEVEL GEAR GENERATOR OPERATOR TO COME TO ER. bd 16:23 Tank Ramos PA is Pronouncing Provider. jr8 Administered Medications: 13:48 Drug: Sodium Bicarbonate 1 amp {Note: dialysis port.} Route: IVP; Site: Other; dm5 13:50 Follow up: Response: No adverse reaction sv 13:48 Drug: Calcium Chloride 1 grams Route: IVP; Site: Other; dm5 13:50 Follow up: Response: No adverse reaction sv 13:50 Drug: EPINEPHrine 0.1mg/mL 1:10,000 1 mg {Note: Dialysis port, blue side used.} Route: dm5 IVP; Site: Other; 13:52 Follow up: Response: No adverse reaction sv 13:54 Drug: EPINEPHrine 0.1mg/mL 1:10,000 1 mg {Note: dialysis port, blue side.} Route: IVP; dm5 Site: Other; 13:56 Follow up: Response: No adverse reaction sv 13:55 Drug: amiodarone 300 mg {Note: dialysis port, blue side.} Route: IVP; Site: Other; dm5 13:58 Follow up: Response: No adverse reaction sv 13:57 Drug: EPINEPHrine 0.1mg/mL 1:10,000 1 mg {Note: dialysis port, blue side.} Route: IVP; dm5 Site: Other; 13:59 Follow up: Response: No adverse reaction sv 13:58 Drug: amiodarone 150 mg Route: IVP; Site: right femoral; dm5 14:00 Follow up: Response: No adverse reaction sv 14:00 Drug: Magnesium Sulfate 4 grams {Note: per PA. No} Route: IVPB; Infused Over: dm5 1 mins; Site: right femoral; 14:02 Follow up: Response: No adverse reaction; IV Status: Completed infusion; IV Intake: sv 102ml 14:01 Drug: EPINEPHrine 0.1mg/mL 1:10,000 1 mg Route: IVP; Site: right femoral; dm5 14:02 Follow up: Response: No adverse reaction sv 14:02 Drug: Lidocaine 100 mg Route: IVP; Site: right femoral; dm5 14:04 Follow up: Response: No adverse reaction sv 14:04 Drug: EPINEPHrine 0.1mg/mL 1:10,000 1 mg Route: IVP; Site: right femoral; dm5 14:07 Follow up: Response: No adverse reaction sv 14:05 Drug: Lidocaine 75 mg Route: IVP; Site: right femoral; dm5 14:07 Follow up: Response: No adverse reaction sv 14:07 Drug: EPINEPHrine 0.1mg/mL 1:10,000 1 mg Route: IVP; Site: right femoral; dm5 14:10 Follow up: Response: No adverse reaction sv 14:09 Drug: Sodium Bicarbonate 1 amp Route: IVP; Site: right femoral; dm5 14:11 Follow up: Response: No adverse reaction sv 14:10 Drug: EPINEPHrine 0.1mg/mL 1:10,000 1 mg Route: IVP; Site: right femoral; dm5 14:13 Follow up: Response: No adverse reaction sv Point of Care Testing: Blood Glucose: 13:50 Blood Glucose: 133 mg/dL; dm5 Ranges: Intake: 14:02 IV: 102ml; Total: 102ml. sv Outcome: 20:20 Patient : Time of 14:16 Body to home. ak1 20:21 Patient left the ED. ak1 Signatures: Karmen Uribe Deana RN RN dm5 Carol Zimmer RN RN sv Wood Brock RN RN Tank Ortiz PA PA jr8 Krenek, Amber RN RN ak1 Krystin Kimball RN RN hb Corrections: (The following items were deleted from the chart) 16:34 13:45 Cardiac rhythm is asystole dm5 dm5 16:34 13:49 Cardiac rhythm is asystole dm5 dm5 16:47 13:59 CPR assessment: shock 200 joules dm5 dm5 16:55 14:06 CPR assessment: shock 200 joules dm5 dm5 20:03 20:01 Reassessment: PD and Supervisor White Sugar at bedside, notified no family has arrived for pt, sg unsure if they are aware the pt has been brought to the ED, PD officer reports he will attempt to reach family at the last known residence of pt and pt family, we will continue to call phone numbers listed in pt demographics sg
--- NOTE | 2018-07-20 16:24 | EDPHYS ---
Physician Documentation [facility] Name: Julien Parikh Age: 67 yrs Sex: Male : 1950 Arrival Date: 07/20/2018 Time: 13:51 Bed 3 Private MD: ED Physician Rigo Parsons HPI: 07/20 15:20 This 67 yrs old Black Male presents to ER via Unassigned with complaints of CPR. jr8 15:20 Preceding the arrest, the patient was dyspneic. The arrest occurred at home. jr8 Pre-hospital course: The arrest was witnessed by EMS. EMS care prior to arrival: oxygen, by BVM to assist ventilations. It is unknown whether or not the patient has had similar symptoms in the past. It is unknown whether or not the patient has recently seen a physician. 15:24 EMS stated that patient called them complaining of shortness of breath. Stated that he jr8 walked out to the ambulance to meet them. Stated that while en route to hospital looked like he had a seizure. Gave Ativan. Soon after patient became unresponsive, apneic, and pulseless. CPR was immediately initiated. Historical: - Allergies: 15:38 PENICILLINS; dm5 - Immunization history:: Adult Immunizations unknown. - Social history:: Smoking status: unknown. - Ebola Screening: : Unable to complete screening because. ROS: 15:25 Unable to obtain ROS due to CPR. jr8 Exam: 15:25 Eyes: Pupils equal round and reactive to light. Sluggish. Lids and lashes normal. jr8 Conjunctiva and sclera are non-icteric and not injected. Cornea within normal limits. Periorbital areas with no swelling, redness, or edema. ENT: Nares patent. No nasal discharge, no septal abnormalities noted. Oropharynx with no redness, swelling, or masses, exudates, or evidence of obstruction, uvula midline. Mucous membranes moist. Neck: Trachea midline, no thyromegaly or masses palpated, and no cervical lymphadenopathy. Supple 15:25 Cardiovascular: Rhythm: asystole, Pulses: not palpable. 15:25 Respiratory: agonal respirations present . 15:25 Abdomen/GI: Inspection: abdomen appears normal, Palpation: soft, in all quadrants. 15:25 Musculoskeletal/extremity: Exam is negative for deformity, ecchymosis, injury. 15:25 Skin: cool and dry. Skin: cool and dry. Procedures: 19:08 Intubation: Intubated orally using # 4 Anette blade with 7.5 mm ETT. was successful jr8 on first attempt. Ventilated with Ambu bag. Cricoid pressure applied during procedure. Tube secured with ETT pride at center of mouth measured 22 cm at lip. Placement verified by CO2 detector with (+) color change, auscultating bilateral breath sounds, Patient tolerated well. Central Line: the site was prepped with Betadine, in sterile fashion, a triple lumen catheter was inserted, in the right femoral vein, in 1 attempts. placement was verified, by blood return, the site was dressed with 4X4s, Tegaderm, foam tape, using sterile technique, the patient tolerated the procedure, well. MDM: 14:21 Patient medically screened. jr8 19:08 Data reviewed: vital signs, nurses notes. Counseling: I had a detailed discussion with jr8 the patient and/or guardian regarding: the historical points, exam findings, and any diagnostic results supporting the discharge/admit diagnosis. ED course: After full ACLS protocol initiated. Patient worked for over 30 minutes without ROSC. Discussed this with family who arrived a few hours after TOD. Administered Medications: 13:48 Drug: Sodium Bicarbonate 1 amp {Note: dialysis port.} Route: IVP; Site: Other; [facility] 13:50 Follow up: Response: No adverse reaction sv 13:48 Drug: Calcium Chloride 1 grams Route: IVP; Site: Other; [facility] 13:50 Follow up: Response: No adverse reaction sv 13:50 Drug: EPINEPHrine 0.1mg/mL 1:10,000 1 mg {Note: Dialysis port, blue side used.} Route: dm5 IVP; Site: Other; 13:52 Follow up: Response: No adverse reaction sv 13:54 Drug: EPINEPHrine 0.1mg/mL 1:10,000 1 mg {Note: dialysis port, blue side.} Route: IVP; 5 Site: Other; 13:56 Follow up: Response: No adverse reaction sv 13:55 Drug: amiodarone 300 mg {Note: dialysis port, blue side.} Route: IVP; Site: Other; [facility] 13:58 Follow up: Response: No adverse reaction sv 13:57 Drug: EPINEPHrine 0.1mg/mL 1:10,000 1 mg {Note: dialysis port, blue side.} Route: IVP; dm5 Site: Other; 13:59 Follow up: Response: No adverse reaction sv 13:58 Drug: amiodarone 150 mg Route: IVP; Site: right femoral; dm5 14:00 Follow up: Response: No adverse reaction sv 14:00 Drug: Magnesium Sulfate 4 grams {Note: per PA. No} Route: IVPB; Infused Over: dm5 1 mins; Site: right femoral; 14:02 Follow up: Response: No adverse reaction; IV Status: Completed infusion; IV Intake: sv 102ml 14:01 Drug: EPINEPHrine 0.1mg/mL 1:10,000 1 mg Route: IVP; Site: right femoral; dm5 14:02 Follow up: Response: No adverse reaction sv 14:02 Drug: Lidocaine 100 mg Route: IVP; Site: right femoral; dm5 14:04 Follow up: Response: No adverse reaction sv 14:04 Drug: EPINEPHrine 0.1mg/mL 1:10,000 1 mg Route: IVP; Site: right femoral; dm5 14:07 Follow up: Response: No adverse reaction sv 14:05 Drug: Lidocaine 75 mg Route: IVP; Site: right femoral; dm5 14:07 Follow up: Response: No adverse reaction sv 14:07 Drug: EPINEPHrine 0.1mg/mL 1:10,000 1 mg Route: IVP; Site: right femoral; dm5 14:10 Follow up: Response: No adverse reaction sv 14:09 Drug: Sodium Bicarbonate 1 amp Route: IVP; Site: right femoral; dm5 14:11 Follow up: Response: No adverse reaction sv 14:10 Drug: EPINEPHrine 0.1mg/mL 1:10,000 1 mg Route: IVP; Site: right femoral; dm5 14:13 Follow up: Response: No adverse reaction sv Point of Care Testing: Blood Glucose: 13:50 Blood Glucose: 133 mg/dL; dm5 Ranges: Critical Glucose Levels:Adult <50 mg/dl or >400 mg/dl <40 mg/dl or >180 mg/dl Disposition: 19:08 Critical Care:. jr8 07/21 09:19 Co-signature as Attending Physician, Rigo Parsons MD I agree with the assessment and naheed plan of care. Disposition: Patient pronounced on 07/20/18 14:16 by Tank Ramos. Impression: Respiratory arrest, Cardiac arrest. - Released to Home. Critical care time excluding procedures: 07/20 19:08 Critical care time: Bedside Care: 20 minutes, Family Intervention: 10 minutes. Total jr8 time: 30 minutes Signatures: Petra Masterson, RN RN dm5 Carol Zimmer RN RN sv Anderson, Corey, MD MD cha Roszak, Josh, JOSE ELIAS MOCTEZUMA jr8 Stephanie Sánchez RN RN ak1 Corrections: (The following items were deleted from the chart) 15:26 15:24 EMS stated that patient . jr8 jr8 19:09 15:25 Skin: jr8 jr8 20:21 16:24 07/20/2018 16:24 Patient pronounced on 07/20/2018 at 14:16 by Tank Ramos. ak1 Impression: Respiratory arrest; Cardiac arrest. Released to Home. jr8
== END 2018-07-20 20:21 | disposition expired ==
LOC: ER 13:48
PROC: 0BH17EZ Insertion of Endotracheal Airway into Trachea, Via Natural or Artificial Opening (ICD-10-PCS; principal; 2018-07-20)
PROC: 06HM33Z Insertion of Infusion Device into Right Femoral Vein, Percutaneous Approach (ICD-10-PCS; 2018-07-20)
PROC: 5A1935Z Respiratory Ventilation, Less than 24 Consecutive Hours (ICD-10-PCS; 2018-07-20)
PROC: 0BH17EZ Insertion of Endotracheal Airway into Trachea, Via Natural or Artificial Opening (ICD-10-PCS; 2018-07-20)
DX: I46.9 Cardiac arrest, cause unspecified (principal); Z88.0 Allergy status to penicillin
CPT/HCPCS: 31500; 92950; 99291; 99292; 36556; 94002; J3475 ×2; J0171; J0282; J7060